=== PATIENT | female | born 1975 | race Caucasian/White ===

== ENCOUNTER 2020-11-09 10:14 | Outpatient (REF) | payer MEDICAID, SELFPAY ==
--- NOTE | 2020-11-09 | US_ITS ---
EXAMINATION: US ABDOMEN COMPLETE CLINICAL INFORMATION: Elevated levels of LDH. COMPARISON: None TECHNIQUE: Real-time imaging of the abdominal viscera. FINDINGS: PANCREAS: Normal. ABDOMINAL AORTA: The proximal, mid, and distal segments are normal in caliber. INFERIOR VENA CAVA: Visualized portions are normal. LIVER: The liver is normal size, shape and position. There is increased echogenicity seen. No focal lesion or intrahepatic biliary duct dilatation seen. GALLBLADDER: Surgically absent. COMMON BILE DUCT: Normal in caliber measuring 0.6 cm in diameter. RIGHT KIDNEY: Normal. No hydronephrosis. No renal calculi or focal parenchymal lesions. The kidney measures 11.7 cm in maximum dimension. LEFT KIDNEY: Normal. No hydronephrosis. No renal calculi or focal parenchymal lesions. The kidney measures 10.2 cm in maximum dimension. SPLEEN: Normal. The spleen measures 9.6 cm in maximum dimension. FREE FLUID: None. US/US abdomen complete IMPRESSION: Diffuse echogenic liver without focal lesion. Rest of the abdominal ultrasound is unremarkable.
--- NOTE | 2020-11-09 11:00 | CA_ITS ---
Acquisition Time: 2020-11-09 11:38:09 Total Exercise Time: 00:05:34 Test Indications: Chest Pain Medications: Protocol: KAROLINE Max HR: 157 BPM 90% of Pred: 174 BPM Max BP: 138/086 mmHG Max Work Load: 7.0 METS Exercise stresss ECHO while walking on treadmill. Karoline protocol used. total of 5 min 34 sec. METS 7.00TAPHR up to 90 %. Pt tolerated well, denies any anginal sx. EKG without any arrhythmias no ischemic changes during exercise or in recovery period. ECHO images taken at rest and immediately after peak HR reached. Defenity contrast used. Normotensive response to exercise. Test reviewed with Dr. Reyna. Referred By: Frankie Carcamo Overread By: Everton Aguiar
== END 2020-11-09 10:15 | disposition home or self-care (01) ==
LOC: HO.US 10:14
PROVIDERS: Visit Provider Internal Medicine
DX: R74.02 Elevation of levels of lactic acid dehydrogenase [LDH] (principal); R07.9 Chest pain, unspecified
CPT/HCPCS: 76700; 93350; Q9957

== ENCOUNTER 2020-11-09 16:00 | Outpatient (RCR) | payer MEDICAID, SELFPAY | END 2020-11-16 17:48 | disposition home or self-care (01) | LOC: HO.PTCHIC 16:00 | PROVIDERS: PCP Internal Medicine; Visit Provider Internal Medicine | DX: M54.5 Low back pain (principal) | CPT/HCPCS: 97110; 97140; 97162 ==

== ENCOUNTER 2021-07-18 13:06 | Outpatient (REF) | payer MEDICAID, SELFPAY ==
--- NOTE | ~2021-07-18 | US_ITS ---
EXAMINATION: US PELVIS CLINICAL INFORMATION: Left lower quadrant pain. COMPARISON: None. TECHNIQUE: Transabdominal and transvaginal imaging of pelvis is performed. FINDINGS: The uterus is anteverted measuring 11.0 cm in length, 5.5 cm in AP and 6.9 cm in transverse dimension. Endometrial thickness is 0.8 cm. There are 2 hypoechoic lesions: 1. Lesion in the left body of the uterus measuring 0.9 x 0 0.5 x 0.9 cm. 2. Lesion in the upper posterior body of the uterus measures 0.7 x 0.6 x 0.5 cm. Endometrial thickness is 0.8 cm. There are small nabothian cysts. There is trace fluid in the endometrium. Right ovary measures 2.5 x 1.2 x 1.0 cm and volume 1.6 mL. It appears unremarkable. Left ovary measures 2.4 x 1.7 x 1.0 cm and volume 2.1 mL. Right ovary measures 2.5 x 1.2 x 1.0 cm and volume 1.6 mL. It appears unremarkable. Left ovary measures 2.4 x 1.7 x 1.0 cm and volume 2.1 mL. There is no free fluid in the cul-de-sac. US/US transvaginal IMPRESSION: Two small uterine fibroids otherwise uterus is unremarkable. Mild thickening of endometrial lining. Small nabothian cysts. Minimal fluid within the endometrial canal. The ovaries are unremarkable.
--- NOTE | ~2021-07-18 | US_ITS ---
EXAMINATION: US PELVIS CLINICAL INFORMATION: Left lower quadrant pain. COMPARISON: None. TECHNIQUE: Transabdominal and transvaginal imaging of pelvis is performed. FINDINGS: The uterus is anteverted measuring 11.0 cm in length, 5.5 cm in AP and 6.9 cm in transverse dimension. Endometrial thickness is 0.8 cm. There are 2 hypoechoic lesions: 1. Lesion in the left body of the uterus measuring 0.9 x 0 0.5 x 0.9 cm. 2. Lesion in the upper posterior body of the uterus measures 0.7 x 0.6 x 0.5 cm. Endometrial thickness is 0.8 cm. There are small nabothian cysts. There is trace fluid in the endometrium. Right ovary measures 2.5 x 1.2 x 1.0 cm and volume 1.6 mL. It appears unremarkable. Left ovary measures 2.4 x 1.7 x 1.0 cm and volume 2.1 mL. Right ovary measures 2.5 x 1.2 x 1.0 cm and volume 1.6 mL. It appears unremarkable. Left ovary measures 2.4 x 1.7 x 1.0 cm and volume 2.1 mL. There is no free fluid in the cul-de-sac. US/US pelvic complete IMPRESSION: Two small uterine fibroids otherwise uterus is unremarkable. Mild thickening of endometrial lining. Small nabothian cysts. Minimal fluid within the endometrial canal. The ovaries are unremarkable.
== END 2021-07-18 13:07 | disposition home or self-care (01) ==
LOC: HO.US 13:06
PROVIDERS: PCP Internal Medicine; Visit Provider Registered Nurse
DX: R10.32 Left lower quadrant pain (principal)
CPT/HCPCS: 76830; 76856

== ENCOUNTER 2021-09-01 13:35 | Outpatient (REF) | payer MEDICAID, SELFPAY ==
[2021-09-01 15:24] LABS: MANUAL DIFF FLAG NO
[2021-09-01 15:46] LABS: Basophils Absolute Auto 0.1 X10*3/uL (0.0-0.2); Basophils Percent Auto 0.8 % (0-2); Eosinophils Absolute Auto 0.3 X10*3/uL (0.0-0.4); Eosinophils Percent Auto 4.1 % (0-4); Hematocrit 38.7 % (37-47); Hemoglobin 12.7 g/dl (12.0-16.0); Imm Gran Abs Auto 0.03 X10*3/uL (0.00-0.03); Imm Gran Pct Auto 0.4 % (0.0-0.4); Lymphocytes Absolute Auto 2.7 X10*3/uL (1.2-4.9); Lymphocytes Percent Auto 38.5 % (20-40); Mean Corpuscular HGB Conc 32.8 g/dl (31.0-35.0); Mean Corpuscular Hemoglobin 31.7 pg (27.0-33.0); Mean Corpuscular Volume 96.5 fL (80-98); Mean Platelet Volume 9.9 fL (9.4-12.3); Monocytes Absolute Auto 0.5 X10*3/uL (0.1-1.2); Monocytes Percent Auto 7.1 % (2-11); Neutrophils Absolute Auto 3.5 X10*3/uL (2.0-8.3); Neutrophils Percent Auto 49.1 % (45-73); Platelet Count 352 X10*3/uL (160-400); Red Blood Count 4.01 X10*6/uL (4.20-5.50); Red Cell Distribution Width 11.8 % (11.0-16.0); White Blood Count 7.1 X10*3/uL (4.8-10.8)
[2021-09-01 16:13] LABS: Alanine Aminotransferase 14 U/L (0-31); Albumin Level 4.3 g/dL (3.5-5.0); Alkaline Phosphatase 66 U/L (39-117); Anion Gap 10 (12-20); Aspartate Amino Transferase 17 U/L (5-31); Bilirubin Total 0.6 mg/dL (0.0-1.0); Blood Urea Nitrogen 12 mg/dL (9-16); Calcium 10.5 mg/dL (8.4-10.2); Carbon Dioxide 30 mmol/L (22-29); Chloride 103 mmol/L (96-108); Estimated Glomerular Filt Rate > 60; Glucose Random 96 mg/dL (60-115); Potassium 4.1 mmol/L (3.3-5.1); Sodium 139 mmol/L (135-145); Total Protein 7.7 g/dL (6.5-8.0)
[2021-09-01 16:30] LABS: TSH reflex Free T4 0.77 uIU/mL (0.32-4.0)
[2021-09-05 12:15] LABS: Transglutaminase Ab IgG <1.0 U/mL; Transglutaminase IgA 2.7 U/mL
== END 2021-09-01 13:36 | disposition home or self-care (01) ==
LOC: HO.LAB 13:35
PROVIDERS: PCP Internal Medicine; Referring Provider Family Medicine; Visit Provider Nurse Practitioner
DX: Z01.818 Encounter for other preprocedural examination (principal); R10.11 Right upper quadrant pain; R10.32 Left lower quadrant pain; K58.2 Mixed irritable bowel syndrome
CPT/HCPCS: 36415; 80053; 83516; 84443; 85025; 99202

== ENCOUNTER → 2021-10-06 10:50 | Outpatient (BNVA) | payer MEDICAID, SELFPAY | PROVIDERS: PCP Internal Medicine; Referring Provider Internal Medicine; Visit Provider Nurse Practitioner | DX: Z12.11 Encounter for screening for malignant neoplasm of colon (principal); K21.9 Gastro-esophageal reflux disease without esophagitis; K58.2 Mixed irritable bowel syndrome | CPT/HCPCS: 99212 ==

== ENCOUNTER 2021-12-18 09:57 | Outpatient (REF) | payer MEDICAID, SELFPAY ==
--- NOTE | ~2021-12-18 | XR_ITS ---
EXAMINATION: XR RIBS, LEFT, CHEST PA CLINICAL INFORMATION: Left rib pain. COMPARISON: None TECHNIQUE: 3 views of the left ribs were obtained with a PA view of the chest. A skin marker overlies the left inferior ribs. FINDINGS: Lungs are clear. No consolidation, pneumothorax, or pleural effusion. The cardiomediastinal silhouette and pulmonary vasculature are normal. Osseous structures are unremarkable. Ribs are intact. No fractures are identified. XR/XR ribs LT min 3V w CXR1V IMPRESSION: Unremarkable examination.
--- NOTE | ~2021-12-18 | XR_ITS ---
EXAMINATION: XR ANKLE, LEFT CLINICAL INFORMATION: Left lateral ankle pain. COMPARISON: None TECHNIQUE: AP, lateral, and mortise views of the left ankle. FINDINGS: The bones and soft tissues are normal. No fracture. Alignment is anatomic. Joint spaces are maintained. No joint effusion. XR/XR ankle LT 2V IMPRESSION: Unremarkable left ankle.
--- NOTE | ~2021-12-18 | XR_ITS ---
EXAMINATION: XR FOOT, LEFT CLINICAL INFORMATION: Left lateral foot pain. COMPARISON: None TECHNIQUE: AP, lateral, and oblique views of the left foot. FINDINGS: The bones and soft tissues are normal. No fracture. Alignment is anatomic. There is an incidental type I accessory navicular bone. Joint spaces are maintained. XR/XR foot LT 2V IMPRESSION: Unremarkable left foot.
== END 2021-12-18 09:58 | disposition home or self-care (01) ==
LOC: HO.XRAY 09:57
PROVIDERS: PCP Internal Medicine; Visit Provider Family Medicine
DX: M25.572 Pain in left ankle and joints of left foot (principal); R07.81 Pleurodynia
CPT/HCPCS: 71101; 73600; 73620

== ENCOUNTER 2022-04-19 09:16 | Outpatient (REF) | payer MEDICAID, SELFPAY ==
--- NOTE | ~2022-04-19 | US_ITS ---
EXAMINATION: US PELVIS CLINICAL INFORMATION: Pelvic pain. COMPARISON: Ultrasound 07/18/2021. TECHNIQUE: Ultrasound of the pelvis is performed using both transabdominal and transvaginal transducers along with Doppler. Transvaginal imaging is performed due to inadequate visualization transabdominally. FINDINGS: UTERUS: The uterus is anteverted and measures 12.2 cm in length, 5.3 cm in AP and 6.2 cm in transverse dimension. There is a solitary fibroid seen in the posterior body of uterus measuring 0.6 x 0.5 x 0.4 cm previously measured 0.7 x 0.6 x 0.5 cm. Previously visualized second fibroid is not seen at this time. The double wall endometrial thickness is 1.4 cm. The uterus is smooth in contour and has normal myometrial echogenicity. Small nabothian cyst is seen in cervix. There is a scar seen in lower uterine segment. ADNEXA: Both ovaries are visualized. There is normal color flow to the adnexa. There is no ovarian torsion. There is no pelvic ascites or fluid collection. Right ovary is not optimally visualized but likely measures 1.8 x 1.0 x 1.9 cm and volume 1.8 mL. No focal lesion seen. The ovary is uncertain and could represent a large broad ligament. By history patient has had oophorectomy unknown which side. Previously right ovary measured 2.5 x 1.2 x 1.0 cm and volume 1.6 mL. Left ovary measures 2.6 x 2.1 x 2.2 cm and volume 6.3 mL. Previously it measured 2.4 x 1.7 x 1.0 cm and volume 2.1 mL. There are small anechoic follicles and echogenic calcification seen. There is no free fluid in cul-de-sac. US/US pelvic and transvaginal IMPRESSION: Only one uterine fibroid seen measuring 0.6 cm. Second fibroid seen on the last exam is not visualized at this time. Small nabothian cysts seen in cervix. There are small follicles seen in the left ovary. The right ovary is unremarkable. There is no free fluid in the cul-de-sac.
== END 2022-04-19 09:17 | disposition home or self-care (01) ==
LOC: HO.US 09:16
PROVIDERS: Visit Provider Advanced Practice Midwife
DX: R10.2 Pelvic and perineal pain (principal); N92.1 Excessive and frequent menstruation with irregular cycle
CPT/HCPCS: 76830; 76856

== ENCOUNTER → 2022-05-28 12:40 | Outpatient (REF) | payer MEDICAID, SELFPAY ==
--- NOTE | 2022-05-28 12:47 | ECG_ITS ---
Hook-up date: 2022-05-28 12:41:00 Duration: 47:59:00 Test Indications: Palpitations Medications: [id number] QRS complexes 3 Ventricular ectopics which represent <1 % of total QRS comp. 2 Supraventricular ectopics which represent <1 % of total QRS comp. * Paced QRS complexs which represent % of total QRS comp. VENTRICULAR ECTOPY 3 Isolated 0 Bigeminal Cycles 0 Couplets 0 Runs 0 Beats in Runs * Beats LONGEST at * BPM at :: -- * Beats FASTEST at * BPM at :: -- SUPRAVENTRICULAR ECTOPY 2 Isolated 0 Couplets 0 Runs 0 Beats in Runs * Beats LONGEST at * BPM at :: -- * Beats FASTEST at * BPM at :: -- HEART RATES 37 MIN at 02:52:32 2022-05-29 64 AVG 143 MAX at 13:58:22 2022-05-28 LONGEST RR 1.6720 secs at 02:52:31 2022-05-29 S-T LEVELS Channel 1 - 128 mm at 12:41:00 2022-05-28 - 128 mm at 12:41:00 2022-05-28 Channel 2 - 128 mm at 12:41:00 2022-05-28 - 128 mm at 12:41:00 2022-05-28 Channel 3 - 128 mm at 03:20:01 -- - 128 mm at 03:20:01 Underlying rhythm is sinus; Average ventricular rate 64/min; range 37-143/min; No significant ectopy, tachy or ginny arrhythmias; 'fast beat' described in patient diary correlated with sinus bradycardia at 54/min. Referred By: Frankie Carcamo Overread By: FEROZ ARDON
== END ==
LOC: HO.CARD 12:40
PROVIDERS: PCP Internal Medicine; Visit Provider Internal Medicine
DX: R00.2 Palpitations (principal)
CPT/HCPCS: 93225; 93226

== ENCOUNTER 2022-07-16 12:01 | Outpatient (REF) | payer MEDICAID, SELFPAY ==
--- NOTE | ~2022-07-16 | MM_ITS ---
EXAMINATION: MM SCREENING DIGITAL BREAST TOMOSYNTHESIS, BILATERAL CLINICAL INFORMATION: Screening. Asymptomatic. The lifetime risk of breast cancer based on the Tyrer-Cuzick Model is 9%. COMPARISON: Outside mammography: 09/19/2020 ([facility]); outside imaging from [facility]: right ultrasound and right mammography 12/23/2018; bilateral mammography 12/03/2018. TECHNIQUE: Digital breast tomosynthesis is performed in both the craniocaudal and mediolateral oblique views along with computer-aided detection (CAD). Synthesized 2D images are generated from the tomosynthesis. FINDINGS: The breasts are almost entirely fatty (ACR BI-RADS breast composition Category a). There are no significant masses, abnormal calcifications, or other abnormalities. Background stromal markings are unremarkable. There is no developing density or architectural abnormality. The axilla and skin contours are unremarkable. No significant changes. MM/MM tomosynthesis screening BI IMPRESSION: No mammographic evidence of malignancy. ASSESSMENT: BI-RADS 1: Negative RECOMMENDATION: Routine annual mammography screening. This patient's information was entered into a reminder system with a target due date for their next mammogram.
== END 2022-07-16 12:02 | disposition home or self-care (01) ==
LOC: HO.MAMMO 12:01
PROVIDERS: Visit Provider Internal Medicine
DX: Z12.31 Encounter for screening mammogram for malignant neoplasm of breast (principal)
CPT/HCPCS: 77063; 77067

== ENCOUNTER 2022-07-26 11:58 | Emergency (ER) | payer MEDICAID, SELFPAY ==
[2022-07-26 12:08] VITALS: BP 122/66; PULSE 60; RESP 18; TEMP 36.4; O2SAT 97; BMI 27.9
--- NOTE | 2022-07-26 12:18 | ECG_ITS ---
Test Reason : chest pain Blood Pressure : / mmHG Vent. Rate : 055 BPM Atrial Rate : 055 BPM P-R Int : 150 ms QRS Dur : 088 ms QT Int : 408 ms P-R-T Axes : 047 -02 024 degrees QTc Int : 390 ms Sinus bradycardia Cannot rule out Anterior infarct , age undetermined Abnormal ECG No previous ECGs available Referred By: Generic ED Physician Electronically Signed By:CARTER CLIFFORD
[2022-07-26 12:44] LABS: MANUAL DIFF FLAG NO
[2022-07-26 12:47] LABS: Basophils Absolute Auto 0.1 X10*3/uL (0.0-0.2); Eosinophils Absolute Auto 0.2 X10*3/uL (0.0-0.4); Eosinophils Percent Auto 2.8 % (0-4); Hemoglobin 12.8 g/dl (12.0-16.0); Lymphocytes Absolute Auto 2.1 X10*3/uL (1.2-4.9); Lymphocytes Percent Auto 36.4 % (20-40); Mean Corpuscular HGB Conc 33.7 g/dl (31.0-35.0); Mean Corpuscular Hemoglobin 31.8 pg (27.0-33.0); Mean Corpuscular Volume 94.5 fL (80.0-98.0); Mean Platelet Volume 9.6 fL (9.4-12.3); Monocytes Absolute Auto 0.4 X10*3/uL (0.1-1.2); Monocytes Percent Auto 7.6 % (2-11); Neutrophils Percent Auto 52.2 % (45-73); Platelet Count 279 X10*3/uL (160-400); Red Blood Count 4.02 X10*6/uL (4.20-5.50); Red Cell Distribution Width 11.9 % (11.0-16.0); White Blood Count 5.8 X10*3/uL (4.8-10.8)
[2022-07-26 13:07] LABS: Alanine Aminotransferase 12 U/L (0-31); Albumin Level 4.1 g/dL (3.5-5.0); Alkaline Phosphatase 53 U/L (39-117); Anion Gap 13 (12-20); Aspartate Amino Transferase 17 U/L (5-31); Bilirubin Direct 0.3 mg/dL (0.0-0.5); Bilirubin Total 0.9 mg/dL (0.0-1.0); Blood Urea Nitrogen 23 mg/dL (9-16); Calcium 9.7 mg/dL (8.4-10.2); Carbon Dioxide 26 mmol/L (22-29); Chloride 105 mmol/L (96-108); Creatinine Clr Calc Pharmacy 76.1; Estimated Glomerular Filt Rate > 60; Glucose Random 94 mg/dL (60-115); Lipase 32 U/L (8-78); Potassium 3.7 mmol/L (3.3-5.1); Sodium 140 mmol/L (135-145); Total Protein 7.2 g/dL (6.5-8.0)
[2022-07-26 13:10] LABS: Troponin-I High Sensitivity < 3.5 ng/L (<3.5-17.0)
== END 2022-07-26 18:22 | disposition left against medical advice (07) ==
PROVIDERS: Emergency Provider Emergency Medicine; PCP Internal Medicine
DX: R07.89 Other chest pain (principal); Z79.899 Other long term (current) drug therapy
CPT/HCPCS: 36415; 80048; 80076; 83690; 84484; 85025; 93005; 99283

== ENCOUNTER → 2022-11-19 09:24 | Outpatient (BNVA) | payer MEDICAID, SELFPAY | PROVIDERS: PCP Internal Medicine; Referring Provider Internal Medicine; Visit Provider Internal Medicine | DX: R00.2 Palpitations (principal); I49.9 Cardiac arrhythmia, unspecified | CPT/HCPCS: 99202 ==

== ENCOUNTER 2022-11-22 13:54 | Outpatient (REF) | payer MEDICAID, SELFPAY ==
[2022-11-23 09:57] LABS: BV Int Neg Control Negative (Negative); BV Int Pos Control Positive (Positive)
[2022-11-23 10:13] LABS: CT PCR NOT DETECTED (Not Detect.); NG PCR NOT DETECTED (Not Detect.)
[2022-11-27 06:24] LABS: HPV mRNA E6/E7 rflx Not Detected (Not Detected)
== END 2022-11-22 13:55 | disposition home or self-care (01) ==
LOC: HO.LNP 13:54
PROVIDERS: PCP Internal Medicine; Visit Provider Advanced Practice Midwife
DX: N92.1 Excessive and frequent menstruation with irregular cycle (principal); Z32.02 Encounter for pregnancy test, result negative; Z11.3 Encounter for screening for infections with a predominantly sexual mode of transmission
CPT/HCPCS: 0353U; 81025; 87480; 87510; 87624; 87660; 88142; 99202

== ENCOUNTER 2022-11-22 15:13 | Outpatient (REF) | payer MEDICAID, SELFPAY | END 2022-11-22 15:14 | disposition home or self-care (01) | LOC: HO.LAB 15:13 | PROVIDERS: Visit Provider Advanced Practice Midwife | DX: Z13.89 Encounter for screening for other disorder (principal) ==

== ENCOUNTER → 2022-11-26 10:00 | Outpatient (REF) | payer MEDICAID, SELFPAY ==
--- NOTE | 2022-11-26 10:04 | HM_ITS ---
* Total monitoring time 30 days. Wear time 25 days. * Average ventricular rate 72/Min. Range 46 to 140/Min. * Rare PACs minimal burden. Rare PVCs with burden of 1.3%. * No sustained arrhythmias. * Patient's symptoms of palpitations correlate with sinus rhythm, supraventricular ectopy, MTDD
--- NOTE | 2022-11-26 10:04 | CA_ITS ---
Transthoracic Echocardiogram Patient (Last, First, Middle): Miguelito Ro, Gender: Female Date of : 1975 Age: 47 Procedure Date: 11/26/2022 Procedure Type: Transthoracic Echocardiogram Location: OP Height: 162.56 cm Weight: 78.47 kg BSA: 1.84 m2 Heart Rate: 65 bpm BP: 130 / 68 mmHg Transonic Engineer: SB Referring MD: Mike Reyna MD Symptoms: R00.2 - Palpitations Study Quality: Adequate ECG Rhythm: Sinus Conclusions: - The left ventricular systolic function is low normal. The visually estimated ejection fraction is between 50-55%. - In some views, interatrial septum appears aneurysmal. Cannot exclude interatrial shunt. - No obvious valvular pathology seen on this study. Findings Left Ventricle Normal left ventricular cavity size. There is normal left ventricular wall thickness. The left ventricular systolic function is low normal. The visually estimated ejection fraction is between 50-55%. There is no evidence of regional wall motion abnormalities. Diastolic function is normal for age. LV peak GLS -14.9%. Right Ventricle Normal right ventricular cavity size. There is low normal right ventricular systolic function. Atria Both atria are normal in size. In some views, interatrial septum appears aneurysmal. Cannot exclude interatrial shunt. Aortic Valve There is a normal trileaflet aortic valve. There is no aortic valve stenosis. There is no aortic valve regurgitation. Mitral Valve The mitral valve appears normal. There is trace mitral valve regurgitation. There is no mitral valve stenosis. Pulmonic Valve The pulmonic valve is likely normal. Tricuspid Valve Normal tricuspid valve structure. There is trace tricuspid valve regurgitation. There is no evidence of pulmonary hypertension. Great Vessels The sinuses of valsalva and asc aorta are normal in size. Venous The inferior vena cava is normal in size and collapses greater than 50% with inspiration. Pericardium/Pleural There is no evidence of pericardial effusion. Prior Study Comparison No prior study available for comparison. Recommendations, Care & Conclusions No obvious valvular pathology seen on this study. Measurements 2D Linear Measurements IVSd: 0.74 0.6-0.9/0.6-1.0 cm LVIDd: 5.19 3.9-5.3/4.2-5.9 cm LVIDd Index: 2.82 2.4-3.2/2.2-3.1 cm/m2 LVIDs: 3.83 2.0-3.6 cm LVPWd: 0.62 0.7-1.1 cm LA Diam: 3.60 2.7-3.8/3.0-4.0 cm LAIDs Index: 1.96 1.5-2.3 cm/m2 LV Mass: 147.26 67-162/88-224 g LV Mass Index: 80.03 43-95/49-115 g/m2 LVOT Diam: 2.10 3.0+(-)1.3 cm 2D Systolic Function EF 4C: 59.40 >55% EF 2C: 62.30 >55% EF BiP: 60.90 >55% Mitral Valve MV Pk E: 0.83 MV PK A: 0.57 MV Decel Time: 221.00 E/A: 1.50 E'Lateral: 9.79 E'Medial: 6.42 E/E' Med: 12.90 E/E' Lat: 8.40 PHT: 65.00 MVA PHT: 3.38 Decel [place]: 3.74 Aortic Valve AoV Pk Rosalio: 1.23 AoV Pk Grad: 6.00 ANANTH: 3.29 LVOT LVOT Pk Rosalio: 1.17 LVOT Mn Rosalio: 0.84 LVOT VTI: 0.26 LVOT Pk Grad: 5.00 LVOT Mn Grad: 3.00 LVOT Diam: 2.10 LVOT Area: 3.46 Diastolic Function MV Pk E: 0.83 MV Pk A: 0.57 E/A: 1.50 E'Medial: 6.42 E/E' Med: 12.90 E' Laterial: 9.79 E/E' Lat: 8.40 Right Ventricle TAPSE (mm): 17.50 TVS' Rosalio: 10.30 Tricuspid Valve TR Pk Rosalio: 1.78 TR Pk Grad: 13.00 RA Press: 3.00 RVSP: 16.00 Great Vessels Aorta Sinus of Valsalva: 3.00 2.0-3.5 cm Ao Asc: 3.30 2.1-3.4 cm Pulmonary Valve PV Pk Rosalio: 0.79 Peak PV Grad: 2.00 Updated in Other Vendor System with Status of Final Mike Reyna MD electronically signed on 11/27/2022 10:06:37 AM with status of Final
== END ==
LOC: HO.CARD 10:00
PROVIDERS: PCP Internal Medicine; Visit Provider Internal Medicine
DX: R00.2 Palpitations (principal)
CPT/HCPCS: 93270; 93306; 93356

== ENCOUNTER → 2022-12-25 10:24 | Outpatient (REF) | payer MEDICAID, SELFPAY ==
--- NOTE | 2022-12-25 10:29 | CA_ITS ---
Transthoracic Echocardiogram with bubble Patient (Last, First, Middle): Miguelito Ro, Gender: Female Date of : 1975 Age: 47 Procedure Date: 12/25/2022 Procedure Type: Transthoracic Echocardiogram with bubble Location: OP Height: 162.56 cm Weight: 78.47 kg BSA: 1.84 m2 Heart Rate: bpm Personal Banker: TO Referring MD: Mike Reyna MD Symptoms: Q21.12 - Patent foramen ovale, bubble study done Study Quality: Fair Conclusions: - There is no evidence of interatrial shunt by agitated saline. Findings Atria There is no evidence of interatrial shunt by agitated saline. (during rest and valsalva). Prior Study Comparison No significant change compared to prior study dated: 11/26/2022. Updated in Other Vendor System with Status of Final Mike Reyna MD electronically signed on 12/25/2022 12:31:58 PM with status of Final
== END ==
LOC: HO.CARD 10:24
PROVIDERS: Visit Provider Internal Medicine
DX: Q21.12 Patent foramen ovale (principal)
CPT/HCPCS: 93308

== ENCOUNTER 2023-01-03 15:44 | Outpatient (REF) | payer MEDICAID, SELFPAY ==
--- NOTE | ~2023-01-03 | US_ITS ---
EXAMINATION: US PELVIS CLINICAL INFORMATION: Abnormal uterine and vaginal bleeding. COMPARISON: Pelvic ultrasound 04/19/2022. TECHNIQUE: Ultrasound of the pelvis is performed using both transabdominal and transvaginal transducers along with Doppler. Transvaginal imaging is performed due to inadequate visualization transabdominally. FINDINGS: Uterus: The uterus is anteverted and measures 12.2 x 4.5 x 6.4 cm. The endometrium is heterogeneous and double wall endometrial thickening at 2.1 cm. There is a question of a polypoid mass in the endometrium. Previously, the endometrium was homogeneous. The uterus is smooth in contour and has normal myometrial echogenicity. A single small uterine fibroid is seen measuring 5 x 7 x 7 mm in size. Nabothian cysts are present in the cervix along with a 3 mm calcification. Adnexa: The right ovary has been removed and is not seen. The left ovary measures 2.0 x 2.1 x 2.3 cm for a volume of 5.1 mL and contains multiple cysts, the largest measuring 1.2 cm as well as multiple echogenic foci consistent with calcifications, the largest measuring 3 mm. A small amount of fluid is present in the cul-de-sac. US/US pelvic and transvaginal IMPRESSION: 1. Thickened heterogeneous endometrium with question of a mass. Hysteroscopy and biopsy is recommended for further evaluation. 2. Small uterine fibroid. 3. Right ovary not seen. 4. Small left ovarian cysts and calcifications.
== END 2023-01-03 15:45 | disposition home or self-care (01) ==
LOC: HO.US 15:44
PROVIDERS: Visit Provider Advanced Practice Midwife
DX: N93.9 Abnormal uterine and vaginal bleeding, unspecified (principal); R00.2 Palpitations; I51.9 Heart disease, unspecified; Z79.899 Other long term (current) drug therapy
CPT/HCPCS: 76830; 76856; 93005; 99212

== ENCOUNTER → 2023-01-09 15:19 | Outpatient (BNVA) | payer MEDICAID, SELFPAY | PROVIDERS: Visit Provider Advanced Practice Midwife | DX: Z71.2 Person consulting for explanation of examination or test findings (principal); N93.9 Abnormal uterine and vaginal bleeding, unspecified; N83.202 Unspecified ovarian cyst, left side | CPT/HCPCS: 99212 ==

== ENCOUNTER 2023-02-20 10:34 | Outpatient (REF) | payer MEDICAID, SELFPAY ==
--- NOTE | ~2023-02-20 | US_ITS ---
EXAMINATION: US PELVIS CLINICAL INFORMATION: Follow up left ovarian cysts and calcifications. COMPARISON: Previous pelvic ultrasounds, most recent January [address] of the abdomen and pelvis June 2022. TECHNIQUE: Ultrasound of the pelvis is performed using both transabdominal and transvaginal transducers along with Doppler. Transvaginal imaging is performed due to inadequate visualization transabdominally. FINDINGS: The uterus is anteverted and measures 11 x 6.5 x 6.7 cm in dimension. Uterine echotexture is heterogeneous. There is an 8 x 5 x 4 cm hypoechoic lesion or cyst in the posterior uterine body. The endometrium is thickened measuring 1.9 cm. The endometrium is heterogeneous. There is a 1 x 0.7 x 11 mm hyperechoic area in the endometrium questionable for a polyp. There are nabothian cysts in the cervix. Right ovary has been removed. Left ovary measures 2.4 x 1.8 x 2.2 cm. There are small echogenic foci questionable for calcifications, largest measures 2 x 3 mm. This is similar to previous exam. Previously identified left ovarian cysts are no longer seen. There is no fluid in the pelvis. US/US pelvic and transvaginal IMPRESSION: Heterogeneous-appearing uterus. Thickened heterogeneous endometrium. Central hyperechoic area questionable for a polyp. Left ovarian cysts no longer seen. Stable small echogenic foci seen in the left ovary questionable for calcifications, largest measuring 2 x 3 mm.
== END 2023-02-20 10:35 | disposition home or self-care (01) ==
LOC: HO.US 10:34
PROVIDERS: Visit Provider Advanced Practice Midwife
DX: N83.202 Unspecified ovarian cyst, left side (principal)
CPT/HCPCS: 76830; 76856

== ENCOUNTER → 2023-04-03 10:59 | Outpatient (BNVA) | payer MEDICAID, SELFPAY | PROVIDERS: PCP Student in an Organized Health Care Education/Training Program; Visit Provider Obstetrics & Gynecology | DX: N93.9 Abnormal uterine and vaginal bleeding, unspecified (principal); N84.0 Polyp of corpus uteri; D25.9 Leiomyoma of uterus, unspecified | CPT/HCPCS: 99212 ==

== ENCOUNTER → 2023-05-01 10:40 | Outpatient (REF) | payer MEDICAID, SELFPAY ==
--- NOTE | 2023-05-01 10:44 | HM_ITS ---
Cardiac event monitor Indication: Palpitations Technique: Patient was hooked up to cardiac event monitor on 05/01/2023 for total period of 38 days. Compliance rate was about 67%. Findings: Baseline rhythm is normal sinus rhythm with no significant pauses. The lowest heart rate was 43 beats per minute and the fastest heart rate of 159 beats per minute. There was 1 episode of short of SVEs most consistent with paroxysmal atrial tachycardia. There were rare isolated PACs and PVCs noted. No prolonged SVT or atrial fibrillation noted. Patient activated the symptom button 70 3 times with reported symptoms 20 6 times. Patient reported symptoms of chest pain 3 times a correlated with sinus rhythm was sinus tachycardia. Patient reported irregular heartbeat or flutter about 9 times that correlated with either isolated PVCs or PACs Patient reported 13 times symptoms of palpitations or skipped heartbeat that correlated with either normal sinus rhythm, short burst of paroxysmal atrial tachycardia or PVCs and PACs Patient reported 1 episode of fast heart rate that correlated with triplet of PACs Conclusion: 1. Baseline was normal sinus rhythm with no pauses 2. Rare isolated PACs and PVCs with 1 episode of paroxysmal atrial tachycardia 3. Patient reported symptoms correlated with isolated PACs and PVCs [facility]
== END ==
LOC: HO.CARD 10:40
PROVIDERS: PCP Internal Medicine; Visit Provider Internal Medicine
DX: R00.2 Palpitations (principal)
CPT/HCPCS: 93270

== ENCOUNTER → 2023-05-01 10:44 | Outpatient (BNV) | payer MEDICAID, SELFPAY | PROVIDERS: PCP Internal Medicine; Visit Provider Internal Medicine Cardiovascular Disease | DX: I47.1 Supraventricular tachycardia (principal) | CPT/HCPCS: 93272 ==

== ENCOUNTER 2023-05-14 12:53 | Outpatient (AMB) | payer MEDICAID, SELFPAY ==
--- NOTE | 2023-05-14 13:02 | MHC.OFFVIS ---
Intake Vital Signs 05/14/23 13:03 Height 5 ft 4 in Weight 160 lb 14.999 oz BMI 27.6 BP 130/70 Intake Visit Reasons: consult for hysterectomy Tightening Machine Operator Required: Yes Tightening Machine Operator Name: Giovanna [id number] Information Interpreted: non-clinical & clinical Bed Setter: Bed Setter Present Allergies azithromycin Allergy (Severe, Verified 05/14/23 13:03) Anaphylaxis guaifenesin [From Robitussin] Allergy (Severe, Verified 05/14/23 13:03) Anaphylaxis hydrocodone [From Vicodin] Allergy (Severe, Verified 05/14/23 13:03) Anaphylaxis naproxen [From Aleve] Allergy (Severe, Verified 05/14/23 13:03) Anaphylaxis oseltamivir [From Tamiflu] Allergy (Severe, Verified 05/14/23 13:03) Anaphylaxis Is last menstrual period known: Yes Last menstrual period: 09/01/20 Post menopausal: No Patient : No Do you need a note to return to daycare/school/sports/work: Yes (for surgery on saturday) HPI HPI Comments History of Present Illness Details Presenting to discuss hysteroscopy D&C possible polypectomy/myomectomy PFSH Medical History Asthma Congenital deafness Fatty liver GERD (gastroesophageal reflux disease) Heart palpitations History of calculus of gallbladder IBS (irritable bowel syndrome) Knee pain, right TRISTON (obstructive sleep apnea) Restless leg syndrome Seasonal allergies Umbilical hernia Surgical History History of esophagogastroduodenoscopy (EGD) History of right oophorectomy Hx of cholecystectomy Hx of colonoscopy Family History Father Diabetes Heart attack Kidney stones Lung cancer S/P triple vessel bypass Mother H/O: hysterectomy Appendicitis Hernia Maternal Grandmother Hernia Other Ovarian cyst Social History Household Members: Significant Other Housing: Apartment Are you a primary child care attendant school to a significant other at home: No Do you presently have visiting nurse or other home services: No Alcohol intake: never Patient Tobacco Use Status: Never used Tobacco Female Reproductive History Menstrual Age of Menarche: 11 Date of last menstrual period: 09/01/20 Total pregnancies: 2 Full term: 2 Review of Systems Card Reports as per HPI and Reports no additional complaints Resp Reports as per HPI and Reports no additional complaints GI Reports as per HPI and Reports no additional complaints Reports as per HPI Physical Exam Vital Signs: Last Vital Signs BP 130/70 05/14/23 13:03 BMI result Body Mass Index 27.6 Const General: cooperative, healthy appearing and comfortable Chest Chest palpation & inspection: normal inspection of the chest and normal palpation of entire chest wall Breast/axilla inspection: normal inspection of the breasts and normal inspection of the axillae Breast/axilla palpation: normal palpation of the breasts, normal palpation of the axillae and no axillary lymphadenopathy Resp Effort & Inspection: normal respiratory effort Auscultation: clear to auscultation bilaterally Percussion: percussion normal Cardio Palpation: normal PMI Rate: regular rate Rhythm: regular rhythm Heart sounds: no murmurs and no rubs Peripheral pulses: Peripheral pulses 2+ throughout GI Inspection: Yes normal to inspection Palpation (GI): Soft to palpation, nontender, no guarding, not rigid and No hepatosplenomegaly present Percussion: Yes normal to percussion Auscultation: normal bowel sounds Rectal Exam - Female: deferred Assessment & Plan Assessment & Plan (1) Abnormal uterine bleeding: Comment: Endometrial polyp by ultrasound Code(s): N93.9 - Abnormal uterine and vaginal bleeding, unspecified Plan: Discussed with the patient the procedure , all benefits and risks including but not limited to inability to complete the procedure , bleeding, infection, possible need for blood transfusion with all its risk ( HIV,syphilis, Hepatitis, anaphylaxis shock, others..), injury to bladder, rectum, possible need for laparoscopy/laparotomy or hysterectomy. The patient verbalized understanding and signed the consent. Instructions given the patient to schedule a 2 week postoperative appointment. Communication was through a orthopedic designer Giovanna garcia, powertrain calibration engineer [phone] [id number] Coding Level of Care Code Est Pt Level 3 (55443) Diagnoses Abnormal uterine bleeding N93.9
[2023-05-14 13:03] VITALS: BP 130/70; BMI 27.6
== END 2023-05-14 14:20 | disposition home or self-care (01) ==
LOC: HO.HWS 12:53
PROVIDERS: PCP Internal Medicine; Visit Provider Obstetrics & Gynecology
DX: N93.9 Abnormal uterine and vaginal bleeding, unspecified (principal)
CPT/HCPCS: 99213

== ENCOUNTER → 2023-05-14 12:53 | Outpatient (BNVA) | payer MEDICAID, SELFPAY | PROVIDERS: PCP Internal Medicine; Visit Provider Obstetrics & Gynecology | DX: N93.9 Abnormal uterine and vaginal bleeding, unspecified (principal); N84.0 Polyp of corpus uteri | CPT/HCPCS: 99212 ==

== ENCOUNTER 2023-05-17 10:12 | Day surgery (SDC) | payer MEDICAID, SELFPAY ==
[2023-04-16 16:27] VITALS: BMI 27.8
[2023-04-17 10:03] VITALS: BMI 27.8
--- NOTE | 2023-04-17 13:39 | HO.ANESPROP2 ---
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 *Multiple med allergies* [facility] Active Problems Active Problems: All Active Problems (Updated 04/17/23 @ 10:07 by Janette Zuleta, RN) LLQ pain (Acute) RUQ pain (Acute) Irritable bowel syndrome with both constipation and diarrhea (Acute) Colon cancer screening (Acute) GERD (gastroesophageal reflux disease) (Acute) Heart palpitations (Acute) Abnormal uterine bleeding (Acute) Uterine myoma (Acute) Past Medical History Medical History (Updated 04/17/23 @ 10:07 by Janette Zuleta, RN) Asthma Congenital deafness Fatty liver GERD (gastroesophageal reflux disease) Heart palpitations History of calculus of gallbladder IBS (irritable bowel syndrome) Knee pain, right TRISTON (obstructive sleep apnea) Restless leg syndrome Seasonal allergies Umbilical hernia Family History Family History Father Diabetes Heart attack Kidney stones Lung cancer S/P triple vessel bypass Mother H/O: hysterectomy Appendicitis Hernia Maternal Grandmother Hernia Other Ovarian cyst Surgical History Surgical History (Updated 04/17/23 @ 10:02 by Janette Zuleta, BELKIS) History of esophagogastroduodenoscopy (EGD) History of right oophorectomy Hx of cholecystectomy Hx of colonoscopy Social History Social History (Updated 04/17/23 @ 10:00 by Janette Zuleta RN) Household Members: Significant Other Housing: Apartment Are you a primary ostomy care nurse to a significant other at home: No Do you presently have visiting nurse or other home services: No Alcohol intake: never Patient Tobacco Use Status: Never used Tobacco Meds Allergies Allergy/AdvReac Type Severity Reaction Status Date / Time azithromycin Allergy Severe Anaphylaxis Verified 04/17/23 10:00 guaifenesin [From Robitussin] Allergy Severe Anaphylaxis Verified 04/17/23 10:00 hydrocodone [From Vicodin] Allergy Severe Anaphylaxis Verified 04/17/23 10:00 naproxen [From Aleve] Allergy Severe Anaphylaxis Verified 04/17/23 10:00 oseltamivir [From Tamiflu] Allergy Severe Anaphylaxis Verified 04/17/23 10:00 Home Medications Medication Instructions Recorded Confirmed Last Taken Type ferrous sulfate 325 mg (65 mg 325 mg PO DAILY 09/01/21 04/17/23 Unknown History iron) tablet valacyclovir 500 mg tablet 500 mg PO DAILY 09/01/21 04/17/23 Unknown History aspirin 325 mg tablet,delayed 325 mg PO DAILY 11/19/22 04/17/23 Unknown History release azelastine 137 mcg (0.1 %) nasal 1 spray intranasal BID PRN Allergy 11/19/22 04/17/23 Unknown History spray aerosol Symptoms ibuprofen 800 mg tablet 800 mg PO BID 11/19/22 04/17/23 Unknown History levocetirizine 5 mg tablet (Xyzal) 5 mg PO DAILY 11/22/22 04/17/23 Unknown History albuterol sulfate 90 mcg/actuation 1 inh inhalation QID PRN Shortness 04/03/23 04/17/23 Unknown History aerosol inhaler (Ventolin HFA) Of Breath Or Wheezing biotin 5 mg capsule 5 mg PO DAILY 04/03/23 04/17/23 Unknown History Exam Exam Date and Time: April 17, 2023 1339 Height,Weight and Vital Signs: Height 5 ft 4 in Weight 73.482 kg Pertinent Lab Results Pertinent Lab Results: Laboratory Tests 07/26/22 07/26/22 12:39 12:39 WBC 5.8 Hgb 12.8 Hct 38.0 Plt Count 279 Sodium 140 Potassium 3.7 Chloride 105 Carbon Dioxide 26 BUN 23 H Creatinine 0.89 Narrative Narrative: Per 01/2023 Cardiology visit: Recent EKG shows sinus bradycardia at 57/Min; no significant ST-T changes and otherwise unremarkable. In the Holter monitor, underlying rhythm is sinus without any clear arrhythmias.? Palpitations mention in diary correlate with sinus bradycardia. Echocardiogram with low-normal LVEF, 50-55%.? Interatrial septum appeared aneurysmal.? With agitated saline, no evidence of shunting.? Reduced peak global longitudinal strain about -15%. Exercise stress echocardiogram unremarkable at 7 METS exercise capacity. Assessment and Plan Assessment Anesthesia Assessment: Chart Reviewed
[2023-05-17 10:44] VITALS: BP 143/95; PULSE 76; RESP 18; TEMP 37.6; O2SAT 98
[2023-05-17 10:44] LABS: UPreg QC Valid YES; Urine Pregnancy NEGATIVE (NEGATIVE)
[2023-05-17 10:53] VITALS: BMI 32.6
--- NOTE | 2023-05-17 11:46 | MHC.SHP ---
Pre-Procedural Eval Section A Date of Service: 05/17/23 The patient is an INPATIENT: No Changes since office visit: No Cold of Flu in the past 2 weeks, No New Medical Problems, No Changes in Medication and No Patient answered all questions The History & Physical has been completed within 30 days and I have reviewed it.: Yes Section B Chief Complaint: Abnormal uterine and vaginal bleeding, unspecified Allergies: Allergies Allergy/AdvReac Type Severity Reaction Status Date / Time azithromycin Allergy Severe Anaphylaxis Verified 05/14/23 13:03 guaifenesin [From Robitussin] Allergy Severe Anaphylaxis Verified 05/14/23 13:03 hydrocodone [From Vicodin] Allergy Severe Anaphylaxis Verified 05/14/23 13:03 naproxen [From Aleve] Allergy Severe Anaphylaxis Verified 05/14/23 13:03 oseltamivir [From Tamiflu] Allergy Severe Anaphylaxis Verified 05/14/23 13:03 Plan Diagnosis/Plan: Unchanged I have reviewed the history and physical and performed a pertinent physical examination on my patient. No changes have occurred unless specified. Time Spent With Patient Time: Total time managing care of this patient today ____ minutes.
--- NOTE | 2023-05-17 12:36 | PM.OP ---
Brief Operative Note Date of Service: 05/17/23 Pre-op diagnosis: Abnormal uterine bleeding endometrial polyp by ultrasound Post-op diagnosis: same (Endometrial polyp) Procedure: Hysteroscopy D&C, Polypectomy Surgeon: Osman Welsh MD Anesthesia: GLMA Was an Healthcare Administrator used for this Procedure?: No Estimated blood loss (mL): 0 Pathology: other (Endometrial Scrapping. Polyp) Condition: stable Disposition: PACU
--- NOTE | 2023-05-17 12:37 | P.OP_ITS ---
Operative Note Operative Note Date of Service: 05/17/23 Narrative: Preop Diagnosis: Abnormal uterine bleeding and Endometrial polyp by US Operation: Diagnostic Hysteroscopy, Dilataion & Curettage and polypectomy Post Op Diagnosis: Endometrial Polyp QBL: Minimal Anesthesia: GLMA Surgeon: Osman Welsh MD Calendering Supervisor: None Complication: None Pathology: Endometrial Scrapings, Endometrial polyp Procedure: The patient was put in the dorsal lithotomy position, scrubbed, and draped in the usual manner. A sterile speculum was inserted in the patient's vagina. The anterior lip of the cervix was grasped with a single tooth tenaculum. The cervix was dilated up to 5 mm, then the scope was inserted in the patient's uterus. Inspection revealed endometrial polyp. The Myosure Reach device was used; it was introduced through the operative channel and polypectomy done with no complications. The scope was then taken out from the uterine cavity, sharp curettings was carried on with minimal to moderate amount of tissues retrieved. At the end of the procedure, all instruments were taken out of the patient uterine and vaginal cavity. The single tooth tenaculum was removed and homeostasis was assured using pressure,. The patient tolerated the procedure well and was transferred to the PACU in a stable condition.
[2023-05-17 12:46] VITALS: BP 120/66; PULSE 73; RESP 16; TEMP 36.6; O2SAT 98
[2023-05-17 12:51] VITALS: BP 130/93; PULSE 70; RESP 16; O2SAT 96
[2023-05-17 12:56] VITALS: BP 136/85; PULSE 68; RESP 16; O2SAT 97
[2023-05-17 13:00] VITALS: BP 133/76; PULSE 53; RESP 16; O2SAT 97
[2023-05-17 13:15] VITALS: BP 121/74; PULSE 66; RESP 18; TEMP 36.6; O2SAT 98
== END 2023-05-17 14:00 | disposition home or self-care (01) ==
PROVIDERS: Nurse Practitioner; PCP Internal Medicine; Visit Provider Obstetrics & Gynecology
PROC: 0UDB8ZZ Extraction of Endometrium, Via Natural or Artificial Opening Endoscopic (ICD-10-PCS; CPT 58558; principal; 2023-05-17 12:00)
DX: N93.9 Abnormal uterine and vaginal bleeding, unspecified (principal); N84.0 Polyp of corpus uteri; J45.909 Unspecified asthma, uncomplicated; K76.0 Fatty (change of) liver, not elsewhere classified; G47.33 Obstructive sleep apnea (adult) (pediatric); H90.5 Unspecified sensorineural hearing loss; Z90.49 Acquired absence of other specified parts of digestive tract; Z88.1 Allergy status to other antibiotic agents; Z88.8 Allergy status to other drugs, medicaments and biological substances
CPT/HCPCS: 58558; 81025; 88305; J1100; J1885; J2250; J2405

== ENCOUNTER → 2023-05-17 10:12 | Outpatient (BNV) | payer MEDICAID, SELFPAY | PROVIDERS: PCP Internal Medicine; Visit Provider Obstetrics & Gynecology | DX: N93.9 Abnormal uterine and vaginal bleeding, unspecified (principal); N84.0 Polyp of corpus uteri | CPT/HCPCS: 58558 ==

== ENCOUNTER 2023-06-05 11:04 | Outpatient (AMB) | payer MEDICAID, SELFPAY ==
--- OUTSIDE RECORDS SUMMARY | 2023-06-05 11:05 | XMS_ITS | Continuity of Care Document ---
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 Date(s): 05/27/23 - 05/27/[address] [address]- Encounter Diagnosis Abdominal pain(Final) - 05/27/23 Discharge Disposition: A-D/C Home Attending Physician: Katia Hernandez DO Admitting Physician: Katia Hernandez DO Referring Physician: Not on Staff, Referring MD Allergies, Adverse Reactions, Alerts Substance Reaction Severity Status Zithromax Active Aleve Stomach pain Active Vicodin Active Tamiflu Active guaiFENesin-HYDROcodone Acti ve Immunizations Given and Recorded Vaccine Date Status Refusal Reason SARS-CoV-2 (COVID-19) mRNA BNT-162b2 vac 11/01/21 Recorded SARS-CoV-2 (COVID-19) mRNA BNT-162b2 vac 03/24/21 Recorded SARS-CoV-2 (COVID-19) mRNA BNT-162b2 vac 03/03/21 Recorded tetanus/diphtheria/pertussis, acel(Tdap) 09/05/16 Given influenza virus vaccine, inactivated 08/28/16 Give n influenza virus vaccine, inactivated 08/12/14 Allan rded pneumococcal 13-valent vaccine 10/19/15 Given hepatitis B adult vaccine 02/21/15 Recorded hepatitis B adult vaccine 08/04/14 Recorded Hepatitis B Vaccine (old term) 09/14/14 Recorded Medications aspirin 81 mg oral capsule 1 capsule = 81 mg, By Mouth, Every 4 hours, 0 Refills, Maintenance, 07/09/22 8:51:00 EDT, Partial fill upon patient request if the prescription is for a schedule II opioid drug. Start Date: 07/09/22 Status: Ordered MorPHINE Inj 4 mg, Injection, IV Push Slowly, Once, STAT, 05/27/23 15:36:00 EDT, Stop date 05/27/23 15:36:00 EDT Start Date: 05/27/23 Stop Date: 05/27/23 Status: Completed omeprazole 20 mg oral enteric coated capsule 1 capsule = 20 mg, By Mouth, Daily, # 30 capsule, 0 Refills, Maintenance, 05/27/23 18:15:00 EDT, [facility]pharmacy #[id number], Partial fill upon patient request if the prescription is for a schedule II opioid drug., 162, cm, 05/27/23 16:14:00 EDT, H... Start Date: 05/27/23 Stop Date: 06/26/23 Status: Ordered Problem List Condition Confirmation Course Effective Dates Status Health St atus Informant Bronchitis, acute Confirmed Active Allergic rhinitis Confirmed Active Chest pain Confirmed Active Complete deafness Confirmed Active Constipation Confirmed Active Depression Confirmed Active Folliculitis Confirmed Active Furuncle of left axilla Confirmed Active History of migraine headaches Confirmed Active Bilateral knee pain Confirmed Active Obesity Confirmed Active Left elbow pain Confirmed Active Pain, joint, upper arm, right Confirmed Active Encounter for preventive health examination Confirmed Active Right shoulder pain Confirmed Active Left shoulder pain Confirmed Active Results Radiology Reports * Exam Date Time Procedure Performing Provider Status 05/27/23 3:[address] Abd/Pelvis W/ IV Contrast Only Cathleen Chowdary; Auth (Verified) Notes: (CT Abd/Pelvis W/ IV Contrast Only) Reason For Exam: Pain RESULT: CT Abd/Pelvis W/ IV Contrast Only CT Abd/Pelvis W/ IV Contrast Only Hx of Present Illness: ABD pain started this AM. Epigastric to R flank. Hard to breath and sweating. Had gallbladder removed. Diarrhea.; Reason: Pain; Clinical Question(s): Diverticulitis TECHNIQUE: Spiral CT through the abdomen and pelvis with IV contrast formatted in 3 planes. 100 cc of Omnipaque 300 was administered intravenously. This study was performed without oral contrast. Weight-based protocol using automatic tube modulation was used to optimize exposure parameters. COMPARISON: 06/05/2021 FINDINGS: Bioinformatics Associate View Findings, Lines and Tubes: None. The study is degraded by mild motion artifact throughout. Visualized Chest: Lung bases are clear. No pleural effusion. The heart is normal in size. No pericardial effusion. Diaphragm: Normal. Liver: Normal. Gallbladder: Absent consistent with prior cholecystectomy. Bile ducts: No biliary ductal dilation. Spleen: Normal. Pancreas: Normal. Adrenal glands: Normal. Kidneys and ureters: No hydronephrosis, stones, or suspicious masses. Bladder: Underdistended but otherwise unremarkable. Reproductive organs: Unremarkable. Stomach, small bowel, and large bowel: The stomach is grossly unremarkable in appearance. The smallbowel loops are normal in caliber, without evidence of obstruction. No gross colonic abnormality identified. Appendix: No findings suggestive of appendicitis. Peritoneum and retroperitoneum: No ascites or pneumoperitoneum. No omental or mesenteric lesions. Lymph nodes: No enlarged lymph nodes. Blood vessels: Normal. No aneurysm. No evidence of venous thrombosis. Abdominal and pelvic wall: There is a small fat-containing umbilical hernia. Bones: No acute abnormality. IMPRESSION: No acute abdominal or pelvic pathology identified on this slightly motion degraded examination. Incidental findings as described above. WSN: [id number] Ordering Physician: Katia Hernandez Dictated By: Carlene Perdomo MD Dictated Date/Time: 05/27/23 4:12 pm Reviewed By: Carlene Perdomo MD Signed By: Carlene Perdomo MD Signed Date/Time: 05/27/23 4:12 pm Transcribed By: TELMA Transcribed Date/Time: 05/27/23 4:02 pm Vital Signs Most recent to oldest [Reference Range]: 1 2 3 Height 162 cm (05/27/23 6:23 PM) 162 cm (05/27/23 4:14 PM) 162 cm (05/27/23 1:31 PM) Weight 91.1 kg (05/27/23 1:31 PM) Oxygen Saturation [94-100 %] 96 % (05/27/23 6:23 PM) 96 % (05/27/23 4:14 PM) 96 % (05/27/23 1:31 PM) Pulse Rate [55-90 bpm] 86 bpm (05/27/23 6:23 PM) 88 bpm (05/27/23 4:14 PM) 130 bpm *H* (05/27/23 1:31 PM) Blood Pressure [90-138/55-84 mm Hg] 154/102mm Hg *H* (05/27/23 6:23 PM) 149/88mm Hg *H* (05/27/23 4:14 PM) 154/131mm Hg *H* (05/27/23 1:31 PM) Respiratory Rate [16-30 br/min] 18 br/min (05/27/23 6:23 PM) 18 br/min (05/27/23 4:27 PM) 18 br/min (05/27/23 4:14 PM) Temperature [96.8-100.4 DegF] 98.2 DegF (05/27/23 4:14 PM) 97.7 DegF (05/27/23 1:31 PM) Liters per Minute 0 L/min (05/27/23 6:23 PM) 0 L/min (05/27/23 4:14 PM) Mode of Delivery (Oxygen) Room air (05/27/23 6:23 PM) Room air (05/27/23 4:14 PM) Room air (05/27/23 1:31 PM) Blood pressure sites Arm, left (05/27/23 6:23 PM) Arm, left (05/27/23 4:14 PM) Arm, left (05/27/23 1:31 PM) Temperature Route Oral (05/27/23 4:14 PM) Oral (05/27/23 1:31 PM) Dry Weight 91.1 kg (05/27/23 1:31 PM) Weight Obtained Via Standing scale (05/27/23 1:31 PM) Dry Weight Obtained Via Standing scale (05/27/23 1:31 PM) Social History Social History Type Response Smoking Status Never smoker entered on: 07/20/15 Sex EKG study * Event Display: ECG 12-Lead Authored Date: Please click on pdf link to open report * Event Display: ECG 12-Lead Authored Date: Ventricular Rate: 98 BPM Atrial Rate: 98 BPM P-R Interval: 128 ms QRS Duration: 82 ms Q-T Interval: 338 ms QTC Calculation(Bazett): 431 ms P [place]: 77 degrees R [place]: 29 degrees T [place]: 51 degrees Poor data quality, interpretation may be adversely affected Normal sinus rhythm Poor R wave progression Otherwise normal ECG When compared with ECG of 20-NOV-2022 14:56, Current undetermined rhythm precludes rhythm comparison, needs review Confirmed by FILIPPO STERLING MD ([id number]) on 05/27/2023 4:49:19 PM [place]: FILIPPO STERLING MD Note * Katia Hernandez DO: PERFORM, SIGN, VERIFY Event Display: Patient Education Handout Authored Date: [id number] * Katia Hernandez DO: PERFORM Event Display: Patient Education Leaflets Authored Date: [id number] GERD (Adult) ?? [id number] GERD (Adult) The esophagus is a tube that carries food from the mouth to the stomach. A valve (lower esophageal sphincter) prevents stomach acid from flowing upward. Sometimes this valve doesn't work correctly. Then stomach contents may flow (reflux) into the esophagus. When it happens again and again, it's called??GERD (gastroesophageal reflux disease).??GERD can irritate the esophagus. It can cause pain. Itcan also cause problems with swallowing or breathing. In severe cases, GERD can cause pneumonia that keeps coming back. This is from breathing in particles (aspiration). Symptoms of reflux include burning, pressure, or sharp pain in the upper belly (abdomen). Symptoms may also be in the mid- to lower chest. The pain can spread to the neck, back, or shoulder. You may have: ??? Belching ??? Acid taste in the back of the throat ??? Chronic cough ??? Sore throat ??? Hoarseness GERD symptoms often occur during the day after a big meal. They can also occur at night when lying down.?? Home care Lifestyle changes can help ease symptoms. Your healthcare provider may also prescribe medicines.??Symptoms often get better with treatment. But if treatment is stopped, the symptoms often return after a few months. Most people with GERD will need to continue treatment. Or they may need treatment onand off. Lifestyle changes ??? Limit or don't eat fatty, fried, or spicy foods. Also limit coffee, chocolate, mint, and foods with high acid content. These include tomatoes and citrus fruit and juices (orange, grapefruit, and lemon). ??? Don???t eat large meals, especially at night. Frequent, smaller meals are best. Don't lie down right after eating. And don???t eat anything 3 hours before going to bed. ??? Don't drink alcohol or smoke. As much as possible, stay away from secondhand smoke. ??? If you are overweight, losing weight will reduce symptoms.? Don't wear tight clothing around your stomach area. ??? If your symptoms occur during sleep, use a foam wedge to raise your upper body not just your head. Or place 4-inch blocks under the head of your bed. Or use 2 bed risers under your bed frame. ??? Talk with your provider if you have trouble making the suggested lifestyle changes. They may be able to give you resources to help. Medicines Medicines can help ease the symptoms of GERD. They also help prevent damage to the esophagus. Discuss a medicine plan with your healthcare provider. This may include one or more of these medicines: ??? Antacids. These help neutralize the normal acids in your stomach. ??? Acid blockers (histamine or H2 blockers). These decrease how much acid your stomach makes. ??? Acid inhibitors (proton pump inhibitors PPIs). These also decrease how much acid your body makes, but in a different way from the blockers. They may work better. But they can take a little longer to do so. Take an antacid 30 to 60 minutes after eating and at bedtime, but not at the same time as an acid rosey. Try not to take medicines such as ibuprofen and aspirin. If you take aspirin for your heart or other health reasons, talk with your healthcare provider about stopping it. ?? Follow-up care Follow up with your healthcare provider as advised. ?? When to seek medical advice Call your healthcare provider if any of the following occur: ??? Stomach pain gets worse or moves to the lower right belly (appendix area) ??? Chest pain appears or gets worse, or spreads to the back, neck, shoulder, or arm ??? An egsk-zxy-xssiogb trial of medicine doesn't relieve your symptoms ???Weight loss that can't be explained ??? Trouble or pain swallowing ??? Frequent vomiting (can???t keep down liquids) ??? Blood in the stool or vomit (red or black in color) ??? Feeling weak or dizzy ??? Fever of 100.4??F (38??C) or higher, or as directed by your healthcare provider ??? Symptoms getworse or you have new symptoms ?? Last Reviewed Date: 2021 ?? [id number] [employer]. All rights reserved. This information is not intended as a substitute for professional medical care. Always follow your healthcare professional's instructions. ?? * Katia Hernandez DO: PERFORM Event Display: Patient Education Leaflets Authored Date: [id number] Unknown Causes of Abdominal Pain (Adult) ?? [id number] Unknown Causes of Abdominal Pain (Adult) The exact cause of your belly (abdominal) pain is not clear. Your exam and tests don't suggest a dangerous cause at this time. This does not mean that this is something to worry about. Everyone likesto know the exact cause of the problem. But sometimes with belly pain, there is no clear-cut cause,and this could be a good thing. Your symptoms can be treated, and you should feel better.?? Your condition does not seem serious now. But sometimes the signs of a serious problem may take more time to appear. For this reason,??it's important for you to watch for any new symptoms, problems,??or worsening of your condition. Over the next few days, the abdominal pain may come and go. Or it may be constant. Other common symptoms can include nausea and vomiting. Sometimes it can be difficult to tell if you feel nauseous. You may just feel bad and not connect that feeling to nausea. Constipation, diarrhea, and a fever maygo along with the pain. The pain may continue even if treated correctly over the following days. Depending on how things go, sometimes the cause can become clear and you may need more??or different treatment. You may also need other evaluations, medicines, or tests. Home care Your healthcare provider may prescribe medicine for pain, symptoms, or an infection. ??Follow the healthcare provider's instructions for taking these medicines. General care ??? Rest as much as you can until your next exam. No strenuous activities. ??? Try to not do anything that may have caused your symptoms. This might be not taking any medicines unless otherwise directed by your healthcare provider. It might be not eating certain foods or doing certain activities. ??? Find positions that ease discomfort. A small pillow placed on your belly may help relieve pain. ??? Something warm on your belly such as a heating pad may help, but be careful not to burn yourself. Diet ??? Don???t??force yourself to eat, especially if having cramps, vomiting, or diarrhea. ??? Water is important so you don't get dehydrated. Soup may also be good. Sports drinks may also help, especially if they are not too acidic. Don't drink sugary drinks as this can make things worse. Take liquids in small amounts. Don???t??guzzle them. ??? Caffeine sometimes makes the pain and cramping worse. ??? Don???t take??dairy products if you have vomiting or diarrhea. ??? Don't eat large amounts at a time. Eat several small meals during the day instead of 2 or 3 larger meals. Wait a few minutesbetween bites. ??? Eat a diet low in fiber (called a low-residue diet). Foods allowed include refined breads, white rice, fruit and vegetable juices without pulp, tender meats. These foods will pass more easily through the intestine. ??? Don???t have??whole-grain foods, whole fruits and vegetables,meats, seeds and nuts, fried or fatty foods, dairy, alcohol and spicy foods until your symptoms go away. ?? Follow-up care Follow up with your healthcare provider, or as advised, if your pain does not begin to improve in the next 24 hours. ?? Call 911 Call?? 911 if any of these occur: ??? Trouble breathing ??? Confusion ??? Fainting or loss of consciousness ??? Rapid heart rate ??? Seizure ?? When to seek medical advice Call your healthcare provider right away if any of these occur: ??? Pain gets worse or moves to theright lower abdomen ??? New or worsening vomiting or diarrhea ??? Swelling of the abdomen ??? Unable to pass stool for more than??3 days ??? Fever of 100.4??F (38??C) or higher, or as directed by your healthcare provider ??? Blood in vomit or bowel movements (dark red or black color) ??? Yellow color of eyes and skin (jaundice) ??? Weakness, dizziness ??? Chest, arm, back, neck, or jaw pain ??? Can't keep down medicines, liquids, or water because of too much vomiting ??? If you have a vagina: unexpected vaginal bleeding or missed period ?? Last Reviewed Date: 2021 ?? [phone] [employer]. All rights reserved. This information is not intended as a substitute for professional medical care. Always follow your healthcare professional's instructions. ?? Patient Care team information Care Team Personnel Name: Tristan Glover Position: [facility] Outreach Member Role: Lifetime Consulting Physician Name: Ranjeet Ly MD, Frankie Position: [facility] Outreach Member Role: PCP Address: Address: [address] [place] [address]- Name: Bernice Cantrell [place] Position: [facility] RN Member Role: Primary Care Nurse Name: Bhakti Grace RN Position: [facility] ED RN W/OE and Tasks Member Role: Patient Care Provider Name: Katia Hernandez DO Position: [facility] ED Medicine MD Member Role: Admitting Physician Address: Address: [address] [place] [address] [place] [address]- Name: Antionette Holden Position: [facility] ED [facility] Member Role: Clamshell Operator Care Team Related Persons Name: CARTER DODD Address: home [address] [place] [address] Name: WINSTON SWIFT Address: [place] [address] Name: RACQUEL TRACY Address: home [address] [address] Name: RACQUEL TRACY Address: [address] [address] Name: SAMMY VERA Address: [address] [place] [address]
[2023-06-05 11:09] VITALS: BP 124/76; BMI 27.8
--- NOTE | 2023-06-05 11:09 | MHC.OFFVIS ---
Intake Vital Signs 06/05/23 11:09 Height 5 ft 4 in Weight 162 lb BMI 27.8 BP 124/76 Intake Visit Reasons: POST OP Head Animal Keeper Required: Yes Head Animal Keeper Language: Sign Languages (macro) Information Interpreted: non-clinical & clinical Accompanied by: Self / Same As Patient Allergies azithromycin Allergy (Severe, Verified 06/05/23 11:10) Anaphylaxis guaifenesin [From Robitussin] Allergy (Severe, Verified 06/05/23 11:10) Anaphylaxis hydrocodone [From Vicodin] Allergy (Severe, Verified 06/05/23 11:10) Anaphylaxis naproxen [From Aleve] Allergy (Severe, Verified 06/05/23 11:10) Anaphylaxis oseltamivir [From Tamiflu] Allergy (Severe, Verified 06/05/23 11:10) Anaphylaxis Post menopausal: Yes HPI HPI Comments History of Present Illness Details The patient is presenting post hysteroscopy D&C polypectomy, no complaints minimal vaginal bleeding no feverishness chills or abdominal pain. The pathology showed the following: A.? Endometrium, curettage:? Mixed proliferative and secretory (interval) endometrium; fragments with features of polyp; no atypia identified. B.? Endometrium, polypectomy:? Fragments of endometrial polyp; no atypia identified. The following workup was done over the last few months In 07/26 H&H 12.8/38, mammogram BI-RADS 1 in 07/26, GC and chlamydia negative Co testing done in 11/26 was negative 02/24 Pelvic ultrasound which showed the following: The uterus is anteverted and measures 11 x 6.5 x 6.7 cm in dimension. Uterine echotexture is heterogeneous. There is an 8 x 5 x 4 cm hypoechoic lesion or cyst in the posterior uterine body. The endometrium is thickened measuring 1.9 cm. The endometrium is heterogeneous. There is a 1 x 0.7 x 11 mm hyperechoic area in the endometrium questionable for a polyp. There are nabothian cysts in the cervix. Right ovary has been removed. Left ovary measures 2.4 x 1.8 x 2.2 cm. There are small echogenic foci questionable for calcifications, largest measures 2 x 3 mm. This is similar to previous exam. Previously identified left ovarian cysts are no longer seen. There is no fluid in the pelvis. [facility] Medical History Asthma Congenital deafness Fatty liver GERD (gastroesophageal reflux disease) Heart palpitations History of calculus of gallbladder IBS (irritable bowel syndrome) Knee pain, right TRISTON (obstructive sleep apnea) Restless leg syndrome Seasonal allergies Umbilical hernia Surgical History History of esophagogastroduodenoscopy (EGD) History of right oophorectomy Hx of cholecystectomy Hx of colonoscopy Family History Father Diabetes Heart attack Kidney stones Lung cancer S/P triple vessel bypass Mother H/O: hysterectomy Appendicitis Hernia Maternal Grandmother Hernia Other Ovarian cyst Social History Household Members: Significant Other Housing: Apartment Are you a primary college and career counselor to a significant other at home: No Do you presently have visiting nurse or other home services: No Alcohol intake: never Patient Tobacco Use Status: Never used Tobacco Female Reproductive History Menstrual Age of Menarche: 11 Physical Exam Vital Signs: Last Vital Signs BP 124/76 06/05/23 11:09 BMI result Body Mass Index 27.8 Assessment & Plan Assessment & Plan (1) Abnormal uterine bleeding: Comment: Endometrial polyp status post polypectomy Code(s): N93.9 - Abnormal uterine and vaginal bleeding, unspecified Plan: Mammogram ordered for 07/27. Discussed with the patient the results of the work up done and options of treatment including but not limited to BCP's, cyclic Progesterone, Mirena IUD, endometrial ablation and hysterectomy. All pros, cons, risks and benefits of each option were discussed with the patient and the patient decided to go ahead with cyclic Provera, so a more detailed discussion re: Progesterone treatment including mechanism of action, benefits (regular menses, endometrial protection form unopposed estrogen and reduction in the risk of endometrial hyperplasia and/or cancer ...), risks (Thrombosis, mood changes, weight gain, breast soreness, ? increased breast ca, others). Instructions were given to use a back- up method for contraception since this is not a method control; patient verbalized understanding and agreed with the plan. Orders: Orders MM screening mammo BI Today Z12.31 - Encounter for screening mammogram for malignant neoplasm of breast Medications: New medroxyprogesterone (Provera) start Provera 1 tablet daily from day 15-24 cyclically every months, day 1 being 1st day of menses 10 mg PO DAILY 10 days 30 tabs 0RF Coding Level of Care Code Est Pt Level 3 (55848) Diagnoses Abnormal uterine bleeding N93.9
== END 2023-06-05 11:26 | disposition home or self-care (01) ==
LOC: HO.HWS 11:04
PROVIDERS: PCP Internal Medicine; Visit Provider Obstetrics & Gynecology
DX: N93.9 Abnormal uterine and vaginal bleeding, unspecified (principal)
CPT/HCPCS: 99213

== ENCOUNTER → 2023-06-05 11:04 | Outpatient (BNVA) | payer MEDICAID, SELFPAY | PROVIDERS: PCP Internal Medicine; Visit Provider Obstetrics & Gynecology | DX: N93.9 Abnormal uterine and vaginal bleeding, unspecified (principal); Z90.721 Acquired absence of ovaries, unilateral | CPT/HCPCS: 99212 ==

== ENCOUNTER 2023-07-19 12:44 | Outpatient (REF) | payer MEDICAID, SELFPAY ==
[2023-07-19 15:02] LABS: MANUAL DIFF FLAG NO
[2023-07-19 15:10] LABS: Basophils Absolute Auto 0.1 X10*3/uL (0.0-0.2); Basophils Percent Auto 0.7 % (0-2); Eosinophils Absolute Auto 0.3 X10*3/uL (0.0-0.4); Eosinophils Percent Auto 3.5 % (0-4); Hematocrit 38.1 % (37.0-47.0); Hemoglobin 12.5 g/dl (12.0-16.0); Imm Gran Abs Auto 0.03 X10*3/uL (0.00-0.03); Imm Gran Pct Auto 0.4 % (0.0-0.4); Lymphocytes Absolute Auto 2.3 X10*3/uL (1.2-4.9); Lymphocytes Percent Auto 32.8 % (20-40); Mean Corpuscular HGB Conc 32.8 g/dl (31.0-35.0); Mean Corpuscular Volume 94.5 fL (80.0-98.0); Mean Platelet Volume 10.6 fL (9.4-12.3); Monocytes Absolute Auto 0.5 X10*3/uL (0.1-1.2); Monocytes Percent Auto 6.6 % (2-11); Platelet Count 359 X10*3/uL (160-400); Red Blood Count 4.03 X10*6/uL (4.20-5.50); Red Cell Distribution Width 11.7 % (11.0-16.0); White Blood Count 7.1 X10*3/uL (4.8-10.8)
[2023-07-19 15:39] LABS: Estimated Average Glucose 100 mg/dL; Hemoglobin A1c % 5.1 % (<6.0)
[2023-07-19 15:56] LABS: Alanine Aminotransferase 16 U/L (0-31); Alkaline Phosphatase 60 U/L (39-117); Anion Gap 10 (12-20); Aspartate Amino Transferase 17 U/L (5-31); Bilirubin Total 0.6 mg/dL (0.0-1.0); Blood Urea Nitrogen 26 mg/dL (9-16); Calcium 9.5 mg/dL (8.4-10.2); Carbon Dioxide 26 mmol/L (22-29); Chloride 107 mmol/L (96-108); Cholesterol 202 mg/dL (<200); Estimated Glomerular Filt Rate > 60; Glucose Random 81 mg/dL (60-115); HDL Cholesterol 50 mg/dL (>40); LDL Cholesterol Calculated 124 mg/dL (<100); Sodium 139 mmol/L (135-145); TSH reflex Free T4 0.88 uIU/mL (0.32-4.0); Total Protein 7.3 g/dL (6.5-8.0); Triglycerides 142 mg/dL (<150)
[2023-07-20 04:28] LABS: ~HepC Num1 0.48 S/CO (0.00-0.79); ~Hepatitis C Antibody Nonreactive (Nonreactive)
[2023-07-24 17:19] LABS: HIV RNA PCR Qn Copies Not Detected Copies/mL; HIV RNA PCR Qn Log Copies Not Detected Log cps/mL
== END 2023-07-19 12:45 | disposition home or self-care (01) ==
LOC: HO.CHCLDS 12:44
PROVIDERS: Visit Provider Internal Medicine
DX: Z00.00 Encounter for general adult medical examination without abnormal findings (principal)
CPT/HCPCS: 36415; 80053; 80061; 83036; 84443; 85025; 86803; 87536; 87900

== ENCOUNTER 2023-08-06 10:57 | Outpatient (REF) | payer MEDICAID, SELFPAY | END 2023-08-06 10:58 | disposition home or self-care (01) | LOC: HO.MAMMO 10:57 | PROVIDERS: PCP Internal Medicine; Visit Provider Obstetrics & Gynecology | DX: Z12.31 Encounter for screening mammogram for malignant neoplasm of breast (principal) | CPT/HCPCS: 77063; 77067 ==

== ENCOUNTER → 2023-08-06 11:00 | Outpatient (BNV) | payer MEDICAID, SELFPAY | PROVIDERS: PCP Internal Medicine; Visit Provider Radiology Diagnostic Radiology | DX: Z12.31 Encounter for screening mammogram for malignant neoplasm of breast (principal) | CPT/HCPCS: 77063; 77067 ==

== ENCOUNTER 2023-09-12 09:09 | Outpatient (AMB) | payer MEDICAID, SELFPAY ==
--- NOTE | 2023-09-12 09:23 | A.OFFVIS_ITS ---
Intake Vital Signs 09/12/23 09:29 Height 5 ft 4 in Weight 160 lb 14.999 oz BMI 27.6 Intake Visit Reasons: 3 month provera/DO NOT RS Jig And Fixture Builder Required: Yes Jig And Fixture Builder Language: Sign Languages (macro) Information Interpreted: non-clinical & clinical Accompanied by: Self / Same As Patient Allergies azithromycin Allergy (Severe, Verified 09/12/23 09:30) Anaphylaxis guaifenesin [From Robitussin] Allergy (Severe, Verified 09/12/23 09:30) Anaphylaxis hydrocodone [From Vicodin] Allergy (Severe, Verified 09/12/23 09:30) Anaphylaxis naproxen [From Aleve] Allergy (Severe, Verified 09/12/23 09:30) Anaphylaxis oseltamivir [From Tamiflu] Allergy (Severe, Verified 09/12/23 09:30) Anaphylaxis Post menopausal: Yes HPI HPI Comments History of Present Illness Details Presenting for 3 months Provera follow-up. The patient did not have her menstrual cycle and therefore did not start Provera. No other associated symptoms PFSH Medical History Umbilical hernia Knee pain, right Fatty liver Heart palpitations Asthma Seasonal allergies Restless leg syndrome TRISTON (obstructive sleep apnea) Congenital deafness IBS (irritable bowel syndrome) GERD (gastroesophageal reflux disease) History of calculus of gallbladder Surgical History Hx of colonoscopy History of right oophorectomy Hx of cholecystectomy History of esophagogastroduodenoscopy (EGD) Family History Father Diabetes Heart attack Kidney stones Lung cancer S/P triple vessel bypass Mother H/O: hysterectomy Appendicitis Hernia Maternal Grandmother Hernia Other Ovarian cyst Social History Household Members: Significant Other Housing: Apartment Are you a primary day care provider to a significant other at home: No Do you presently have visiting nurse or other home services: No Alcohol intake: never Patient Tobacco Use Status: Never used Tobacco Female Reproductive History Menstrual Age of Menarche: 11 Physical Exam Vital Signs: BMI result Body Mass Index 27.6 Results AMB Test Urine AMB Test Urine Negative Last Edit by Tracey Mckinney CMA on 09:50 Results Reviewed Results Reviewed: Laboratory Last Values [facility] Clinic Negative 09/12/23 09:50 Assessment & Plan Assessment & Plan (1) Amenorrhea: Code(s): N91.2 - Amenorrhea, unspecified Plan: Urine test done in the office was negative Will order TSH, prolactin, hCG, FSH/LH. Instructions given the patient to schedule a 2 week follow-up appointment. All questions answered, the patient verbalized understanding. Orders: Orders TSH reflex Free T4 09/12/23 N91.2 - Amenorrhea, unspecified Prolactin 09/12/23 N91.2 - Amenorrhea, unspecified HCG Quantitative 09/12/23 N91.2 - Amenorrhea, unspecified AMB HCG Urine Test 09/12/23 N91.2 - Amenorrhea, unspecified, Z32.02 - Encounter for test, result negative Follicle Stimulating Hormone 09/12/23 N91.2 - Amenorrhea, unspecified Lutenizing Hormone 09/12/23 N91.2 - Amenorrhea, unspecified Coding Level of Care Code Est Pt Level 3 (08365) Diagnoses Amenorrhea N91.2
[2023-09-12 09:29] VITALS: BMI 27.6
== END 2023-09-12 09:47 | disposition home or self-care (01) ==
PROVIDERS: PCP Internal Medicine; Visit Provider Obstetrics & Gynecology
DX: N91.2 Amenorrhea, unspecified (principal)
CPT/HCPCS: 99213

== ENCOUNTER 2023-09-12 09:09 | Outpatient (REF) | payer MEDICAID, SELFPAY ==
[2023-09-12 11:37] LABS: HCG Quantitative < 2 mIU/mL; TSH reflex Free T4 0.82 uIU/mL (0.32-4.0)
[2023-09-13 08:23] LABS: Follicle Stimulating Hormone 17.4 mIU/mL; Lutenizing Hormone 7.3 mIU/mL; Prolactin 6.3 ng/mL
== END 2023-09-12 09:10 | disposition home or self-care (01) ==
LOC: HO.LAB 09:09
PROVIDERS: PCP Internal Medicine; Visit Provider Obstetrics & Gynecology
DX: N91.2 Amenorrhea, unspecified (principal)
CPT/HCPCS: 36415; 81025; 83001; 83002; 84146; 84443; 84702; 99212

== ENCOUNTER 2023-09-17 08:33 | Outpatient (AMB) | payer MEDICAID, SELFPAY ==
--- OUTSIDE RECORDS SUMMARY | 2023-09-17 08:35 | XMS_ITS | Continuity of Care Document ---
Author Name Unknown Organization [facility] Address [address] [place] [address]- Care Team Providers Care Golf Ball Inspector Name Role Phone Ranjeet Ly MD, Frankie Primary Care Phys ician [facility] Date[facility]s): 07/07/23 - 07/07/[address] [address]- Discharge Disposition: A-D/C Home Attending Physician: Elie Cross MD Admitting Physician: Elie Cross MD Referring Physician: Not on Staff, Referring MD Allergies, Adverse Reactions, Alerts Substance Reaction Severity Status Zithromax Active Aleve Stomach pain Active Vicodin Active Tamiflu Active guaiFENesin-HYDROcodone Acti ve Immunizations Given and Recorded Vaccine Date Status Refusal Reason rabies vaccine, human diploid cell 07/07/23 Given rabies vaccine, human diploid cell 07/03/23 Given rabies vaccine, human diploid cell 06/30/23 Given Rabies Immune Globulin, Human 1 06/30/23 Given tetanus/diphtheria/pertussis, acel(Tdap) 06/30/23 Given tetanus/diphtheria/pertussis, acel(Tdap) 09/05/16 Given SARS-CoV-2 (COVID-19) mRNA BNT-162b2 vac 11/01/21 Recorded SARS-CoV-2 (COVID-19) mRNA BNT-162b2 vac 03/24/21 Recorded SARS-CoV-2 (COVID-19) mRNA BNT-162b2 vac 03/03/21 Recorded influenza virus vaccine, inactivated 08/28/16 Give n influenza virus vaccine, inactivated 08/12/14 Allan rded pneumococcal 13-valent vaccine 10/19/15 Given hepatitis B adult vaccine 02/21/15 Recorded hepatitis B adult vaccine 08/04/14 Recorded Hepatitis B Vaccine (old term) 09/14/14 Recorded 1Result Comment: right calf puncture infiltrated with 3 ml, 3 ml in right gluteus kody IM Medications aspirin 81 mg oral capsule 1 capsule = 81 mg, By Mouth, Every 4 hours, 0 Refills, Maintenance, 07/09/22 8:51:00 EDT, Partial fill upon patient request if the prescription is for a schedule II opioid drug. Start Date: 07/09/22 Status: Ordered Omeprazole By Mouth, Daily, 0 Refills, Maintenance, 06/30/23 12:20:00 EDT, Partial fill upon patient request if the prescription is for a schedule II opioid drug. Start Date: 06/30/23 Status: Ordered omeprazole 20 mg oral enteric coated capsule 1 capsule = 20 mg, By Mouth, Daily, # 30 capsule, 0 Refills, Maintenance, 05/27/23 18:15:00 EDT, ECCapsule, [id number], Partial fill upon patient request if [...] Confirmed Active Bilateral knee pain Confirmed Active Obese class I Confirmed Active Obesity Confirmed Active Left elbow pain Confirmed Active Pain, joint, upper arm, right Confirmed Active Encounter for preventive health examination Confirmed Active Right shoulder pain Confirmed Active Left shoulder pain Confirmed Active Vital Signs Most recent to oldest [Reference Range]: 1 Height 163 cm (07/07/23 12:52 PM) Weight 89 kg (07/07/23 12:52 PM) Oxygen Saturation [94-100 %] 97 % (07/07/23 12:51 PM) Pulse Rate [55-90 bpm] 58 bpm (07/07/23 12:51 PM) Blood Pressure [90-138/55-84 mm Hg] 128/ 87mm Hg (07/07/23 12:51 PM) Respiratory Rate [16-30 br/min] 18 br/mi n (07/07/23 12:51 PM) Temperature [96.8-100.4 DegF] 97.5 DegF (07/07/23 12:51 PM) Mode of Delivery (Oxygen) Room air (07/07/23 12:51 PM) Blood pressure sites Arm, left (07/07/23 12:51 PM) Temperature Route Temporal (07/07/23 12:51 PM) Dry Weight 89 kg (07/07/23 12:52 PM) Dry Weight Obtained Via Standing scale (07/07/23 12:52 PM) Social History Social History Type Response Smoking Status Never smoker entered on: 07/20/15 Sex Patient Care team information Care Team Personnel Name: Tristan Glover Position: [facility] Outreach Member Role: Lifetime Consulting Physician Name: Frankie Valencia MD Position: [facility] Outreach Member Role: PCP Address: Address: [address] [place] [id number]- [place] Name: Bernice Cantrell [place] Position: [facility] RN Member Role: Primary Care Nurse Name: Angel Hanks RN Position: [facility] ED RN W/OE and Tasks Member Role: Patient Care Provider Name: Elie Cross MD Position: [facility] ED Medicine MD Member Role: Admitting Physician Address: Address: [address] [place] [address] [place] [address]- [place] Name: Teresa Toscano Position: [facility] ED OA Care Team Related Persons Name: CARTER DODD Address: home [address] [place] [address] Name: WINSTON SWIFT Address: [place] [address] Name: RACQUEL TRACY Address: home [address] [place] [address] Name: RACQUEL TRACY Address: home [address] [place] [address] Name: SAMMY VERA Address: home [address] [place] [address]
--- OUTSIDE RECORDS SUMMARY | 2023-09-17 08:35 | XMS_ITS | Continuity of Care Document ---
Author Name Unknown Organization [facility] Address [address] [place] [address]- Care Team Providers Care Rug Cutter Name Role Phone Ranjeet Ly MD, Frankie Primary Care Phys ician Encounter [facility] Date(s): 07/03/23 - 07/03/[address] [address]- Discharge Disposition: A-D/C Home Attending Physician: Elie Cross MD Admitting Physician: Elie Cross MD Referring Physician: Not on Staff, Referring MD Allergies, Adverse Reactions, Alerts Substance Reaction Severity Status Zithromax Active guaiFENesin-HYDROcodone Acti ve Tamiflu Active Aleve Stomach pain Active Vicodin Active Immunizations Given and Recorded Vaccine Date Status Refusal Reason rabies vaccine, human diploid cell 07/03/23 Given rabies vaccine, human diploid cell 06/30/23 Given Rabies Immune Globulin, Human 1 06/30/23 Given tetanus/diphtheria/pertussis, acel(Tdap) 06/30/23 Given tetanus/diphtheria/pertussis, acel(Tdap) 09/05/16 Given SARS-CoV-2 (COVID-19) mRNA BNT-162b2 vac 11/01/21 Recorded SARS-CoV-2 (COVID-19) mRNA BNT-162b2 vac 03/24/21 Recorded SARS-CoV-2 (COVID-19) mRNA BNT-162b2 vac 03/03/21 Recorded influenza virus vaccine, inactivated 08/28/16 Give n influenza virus vaccine, inactivated 08/12/14 Lalan rded pneumococcal 13-valent vaccine 10/19/15 Given hepatitis [...] opioid drug. Start Date: 07/09/22 Status: Ordered Augmentin 250 mg-62.5 mg/5 ml oral powder for reconstitution 17.5 mL, By Mouth, Every 12 hours, for 7 days, # 245 mL, 0 Refills, Acute 07/07/23 17:33:00 EDT, 06/30/23 17:33:00 EDT, REC Powder, [id number], Partial fill upon patient request if the prescription is for a schedule II opioid drug., 168, cm, 0... Start Date: 06/30/23 Stop Date: 07/07/23 Status: Ordered Omeprazole By Mouth, Daily, 0 [...] oldest [Reference Range]: 1 Height 163 cm (07/03/23 12:01 PM) Weight 89.4 kg (07/03/23 12: PM) Oxygen Saturation [94-100 %] 96 % (07/03/23: PM) Pulse Rate [55-90 bpm] 55 bpm (07/03/23: PM) Blood Pressure [90-138/55-84 mm Hg] 134/ 63mm Hg (07/03/23: PM) Respiratory Rate [16-30 br/min] 17 br/mi n (07/03/23 PM) Temperature [96.8-100.4 DegF] 97.1 DegF (07/03/23: PM) Mode of Delivery (Oxygen) Room air (07/03/23: PM) Blood pressure sites Arm, left (07/03/23: PM) Temperature Route Temporal (07/03/23: PM) Dry Weight 89.4 kg (07/03/23 12: PM) Social History Social History Type Response Smoking Status Never smoker entered on: 07/20/15 Sex Note * America LOPEZ, Elie Lerma: PERFORM Event Display: Patient Education Leaflets Authored Date: [id number] Dog Bite ?? [id number] Dog Bite A dog bite can cause a wound deep enough to break the skin. In such cases, the wound is cleaned and??sometimes??closed with stitches (sutures). Wounds would be closed if they're gaping open or in cosmetically important areas, such as the face.??If??the wound is??closed,??it usually isn't??completely??closed. This is so that fluid can drain if the wound becomes infected.??Often, wounds will be left open to heal.??In addition to wound care, a tetanus shot (injection) may be given, if needed. Home care ??? Wash your hands well with soap and warm water before and after caring for the wound. This helpslower the risk of infection. ??? Care for the wound as directed by your provider. If a dressing wasapplied to the wound, be sure to change it as directed. ??? If the wound bleeds, place a clean, soft cloth on the wound. Then firmly apply pressure until the bleeding stops. This may take up to 5 minutes. Don't release the pressure and look at the wound during this time. ??? Most wounds heal [id number] days. But an infection can occur even with correct treatment. So be sure to check the wound daily for signs of infection (see below). ??? Antibiotics may be prescribed. These medicines help prevent or treat infection. If you???re given antibiotics, take them as directed. Also be sure to take allof the medicine. Rabies prevention Rabies is a virus that can be carried in certain animals. These can include domestic animals, such as dogs and cats. Pets fully vaccinated against rabies (2 shots) are at very low risk of infection. But because human rabies is almost always fatal, any biting pet should be confined for 10 days as anextra precaution. In general, if there's a risk for rabies, the following steps may need to be taken: ??? If someone???s pet dog has bitten you, it should be kept in a secure area for the next 10 days to watch for signs of illness. (If the pet pattern ruler won???t allow this, contact your local animal control center.) Ask to see the pet's vaccination history records. If the dog becomes ill or dies during that time, contact your local animal control center at once so the animal can be tested for rabies. If the dog stays healthy for the next 10 days, there's no danger of rabies in the animal or you. oIf a stray dog bit you, contact your local animal control center. They can give information on capture, quarantine, and animal rabies testing. o If you can???t find the animal that bit you in the next 2 days, and if rabies exists in your area, you may need to receive the rabies vaccine series. Callyour healthcare provider or return to the emergency room right away. o All animal bites should be reported to the local animal control center. If you weren't given a form to fill out, you can report it yourself. ?? Follow-up care Follow up with your healthcare provider, or as advised. ?? When to get medical advice Call your provider or get medical care right away if any of these occur: ??? Signs of infection: o Spreading redness or warmth from the wound o Increased pain or swelling o Fever of 100.4??F (38??C) or higher, or as directed by your provider o Colored fluid or pus draining from the wound ??? Signs of rabies infection. Don't wait for any of the symptoms below to start. If you suspect that the dog that bit you is rabid or if the dog is lost and can't be found, you should get the vaccine series. oHeadache o Confusion o Strange behavior o Increased salivating and drooling o Seizure o Hallucination, anxiety, or agitation o Fever ??? Decreased ability to move any body part near the wound ??? Bleeding that can't be stopped after 5 minutes of firm pressure ?? Last Reviewed Date: 2022 ?? [employer]. All rights reserved. This information is not intended as a substitute for professional medical care. Always follow your healthcare professional's instructions. ?? Patient Care team information Care Team Personnel Name: Tristan Glover Position: [facility] Outreach Member Role: Lifetime Consulting Physician Name: Frankie Valencia MD Position: [facility] Outreach Member Role: PCP Address: Address: [address] [place] [address]- Name: Bernice Cantrell [place] Position: [facility] RN Member Role: Primary Care Nurse Name: Jadyn Natarajan RN Position: [facility] ED RN W/OE and Tasks Member Role: Patient Care Provider Name: Elie Cross MD Position: [facility] ED Medicine MD Member Role: Admitting Physician Address: Address: [address] [place] [address]- Name: Chaparrita Aparicio Position: [facility] ED [facility] Member Role: Patient Care Provider Care Team Related Persons Name: CARTER DODD Address: home [address] [facility] [address] [place], [place] Name: WINSTON SWIFT Address: home [place], [place] Name: RACQUEL TRACY Address: home [address] [place] [address], [place] [address] Name: RACQUEL TRACY Address: home [address] Name: SAMMY VERA Address: home [address] [place] [id number]
--- OUTSIDE RECORDS SUMMARY | 2023-09-17 08:35 | XMS_ITS | Continuity of Care Document ---
Author Name Unknown Organization [facility] Address [address] [place] [address]- Care Team Providers Care Chinese Instructor Name Role Phone Ranjeet Ly MD, Frankie Primary Care Phys ician Encounter [facility] Date(s): 09/13/23 - 09/13/[address] [address]- Discharge Disposition: A-D/C Home Attending Physician: Mj Chicas MD Admitting Physician: Mj Chicas MD Referring Physician: Not on Staff, Referring MD Allergies, Adverse Reactions, Alerts Substance Reaction Severity Status Zithromax Active Augmentin Active Aleve Stomach pain Active Tamiflu Active guaiFENesin-HYDROcodone Acti ve Vicodin Active Immunizations Given and Recorded Vaccine Date Status Refusal Reason rabies vaccine, human diploid cell 07/14/23 Given rabies vaccine, human diploid cell 07/07/23 Given [...] Exam Date Time Procedure Performing Provider Status 09/13/23 1:[address] Abd/Pelvis W/ IV Contrast Only Rosa Botello; Auth (Verified) Notes: (CT Abd/Pelvis W/ IV Contrast Only) Reason For Exam: Pain RESULT: CT Abd/Pelvis W/ IV Contrast Only CT Abd/Pelvis W/ IV Contrast Only Hx of Present Illness: Headache, chills, burning with urination. Abdominal cramping and lower back pain. Pt states she also has her period which she has not had in months; Reason: Pain; Clinical Question(s): Appendicitis TECHNIQUE: Spiral CT through the abdomen and pelvis with IV contrast formatted in 3 planes. 100 cc of Omnipaque 300 was administered intravenously. This study was performed without oral contrast. Weight-based protocol using automatic tube modulation was used to optimize exposure parameters. COMPARISON: CT abdomen and pelvis from 05/27/2023 FINDINGS: Motion degraded exam. [place] Findings, Lines and Tubes: None. Visualized Chest: Lung bases are clear. No pleural effusion. The heart is normal in size. No pericardial effusion. Diaphragm: Normal. Liver: Diffuse low-attenuation throughout the liver parenchyma consistent with hepatic steatosis. No evidence of mass. Gallbladder: Absent consistent with prior cholecystectomy. Bile ducts: No biliary ductal dilation. Spleen: Normal. Pancreas: Normal. Adrenal glands: Normal. Kidneys and ureters: No hydronephrosis, stones, or suspicious masses. Small hypodensities that are too small to characterize are noted, requiring no dedicated follow up. Bladder: Normal. Reproductive organs: Uterus is unremarkable. There is ill-defined inflammatory stranding and free fluid centered around the left adnexa extending into the cul-de-sac. Small amount of gas within the vaginal vault is nonspecific. Stomach, small bowel, and large bowel: No abnormal bowel wall thickening or distention. Few colonicdiverticula without evidence of acute diverticulitis. A second colon is tortuous and the cecum is rotated superiorly such that it is in the right midabdomen (coronal image 19). No abnormal colonic dilatation. Appendix: Not seen, but no evidence of appendicitis. Peritoneum and retroperitoneum: Small volume free fluid in the pelvis. No omental or mesenteric lesions. Lymph nodes: No enlarged lymph nodes. Blood vessels: Normal. No aneurysm. No evidence of venous thrombosis. Abdominal and pelvic wall: Small fat-containing umbilical hernia. Abdominal wall laxity. Bones: No acute abnormality. IMPRESSION: Inflammatory stranding and free fluid centered around the left adnexa concerning for LUTE PACKER OR APPLIER etiology of the patient's pain. Recently ruptured ovarian cyst is one possible consideration. Please correlatewith patient history. Follow-up with pelvic ultrasound may be considered. Mild hepatic steatosis. WSN: [id number] Ordering Physician: Mj Chicas Dictated By: Kirk Stock MD Dictated Date/Time: 09/13/23 2:03 pm Reviewed By: Kirk Stock MD Signed By: Kirk Stock MD Signed Date/Time: 09/13/23 2:03 pm Transcribed By: TELMA Transcribed Date/Time: 09/13/23 1:53 pm Vital Signs Most recent to oldest [Reference Range]: 1 2 Height 165 cm (09/13/23 12:57 PM) 165 cm (09/13/23 10:34 AM) Weight 91.3 kg (09/13/23 12:57 PM) 91.3 kg (09/13/23 10:34 AM) Oxygen Saturation [94-100 %] 98 % (09/13/23 12:57 PM) 98 % (09/13/23 10:34 AM) Pulse Rate [55-90 bpm] 82 bpm (09/13/23 12:57 PM) 88 bpm (09/13/23 10:34 AM) Body Mass Index [18.5-24.99 kg/m2] 33.54 kg/m2 *>HHI* (09/13/23 12:57 PM) Blood Pressure [90-138/55-84 mm Hg] 130/ 78mm Hg (09/13/23 12:57 PM) 140/88mm Hg *H* (09/13/23 10:34 AM) Respiratory Rate [16-30 br/min] 18 br/mi n (09/13/23 10:34 AM) Temperature [96.8-100.4 DegF] 98 DegF (09/13/23 10:34 AM) Mode of Delivery (Oxygen) Room air (09/13/23 12:57 PM) Room air (09/13/23 10:34 AM) Blood pressure sites Arm, left (09/13/23 12:57 PM) Dry Weight 91.3 kg (09/13/23 12:57 PM) 91.3 kg (09/13/23 10:34 AM) Social History Social History Type Response Smoking Status Never smoker entered on: 07/20/15 Sex Note * Juan Francisco LOPEZ, Mj: PERFORM Event Display: Patient Education Leaflets Authored Date: [id number] Ovarian Cysts ?? [id number] Ovarian Cysts The ovaries are 2 small organs located on each side of the womb (uterus). They are part of the female reproductive system. Ovarian cysts are sacs filled with fluid or tissue that forms on or inside the ovaries. Ovarian cysts are common, especially during childbearing years. There are different types of cysts.Most are harmless (benign) and go away on their own. They often cause no symptoms. If symptoms do occur, they can include mild pain or pressure in the lower belly (abdomen). Cysts that are large can break (rupture) and bleed. This is called a hemorrhagic cyst. This may cause more severe pain and symptoms. In these cases, you may need hospital care or treatment, such as surgery. You may need more extensive treatment if a cyst causes an ovary to twist (called torsion) orif your healthcare provider suspects your cyst is cancerous. Keep in mind that most cysts are not cancerous, however. General care ??? To help relieve pain, your healthcare provider may recommend using [id number]-fsloxiv pain medicine. If needed, your provider may prescribe stronger pain medicine. ??? Using heat may help relieve your pain. Consider using a heating pad set on low or warm water bottle to relieve discomfort. Taking a warm bath may help you feel more comfortable. ??? Depending on the type of cyst you have, your healthcare provider may advise taking control pills. These help shrink cysts in certain cases. They may also help prevent new cysts from forming. Be sure to take these medicines as directed if they are prescribed. ??? Your healthcare provider may advise you to watch your symptoms over time to see if they go away or worsen. Regular ultrasound tests may also be advised. These can help check if a cyst goes away or grows in size. ?? Follow-up care Follow up with your healthcare provider, or as advised. ?? When to get medical advice Call your healthcare provider right away if any of these occur: ??? Pain gets worse or doesn't get better with home treatment ??? Fever of 100.4??F (38??C) or higher, or as directed by your healthcare provider ??? Nausea and vomiting ??? Weakness, dizziness, or fainting ??? Abnormal vaginal bleeding ?? Last Reviewed Date: 2022 ?? [id number] The [employer]. All rights reserved. This information is not intended as a substitute for professional medical care. Always follow your healthcare professional's instructions. ?? Patient Care team information Care Team Personnel Name: Tristan Glover Position: [facility] Outreach Member Role: Lifetime Consulting Physician Name: Frankie Valencia MD Position: [facility] Outreach Member Role: PCP Address: Address: [address] [place] [address]- [place] Name: Bernice Cantrell [place] Position: [facility] RN Member Role: Primary Care Nurse Name: Teresa Toscano Position: [facility] ED OA Member Role: Patient Care Provider Name: Mj Chicas MD Position: [facility] ED Medicine MD Member Role: Admitting Physician Address: Address: [address] [place] [address] [place] [address]- [place] Name: Catherine Ly RN Position: [facility] ED RN W/OE and Tasks Member Role: Patient Care Provider Care Team Related Persons Name: CARTER DODD Address: home [address] [place] [address] Name: WINSTON SWIFT Address: [place] [address] Name: RACQUEL TRACY Address: [address] [place] [address] Name: RACQUEL TRACY Address: home [address] [place] [address] Name: SAMMY VERA Address: home [address] [place] [address]
--- OUTSIDE RECORDS SUMMARY | 2023-09-17 08:35 | XMS_ITS | Continuity of Care Document ---
Author Name Unknown Organization [facility] Address [address] [place] [address]- Care Team Providers Care Blog Writer Name Role Phone Ranjeet Ly MD, Frankie Primary Care Phys ician Encounter [facility] Date(s): 07/14/23 - 07/14/[address] [address]- Discharge Disposition: A-D/C Home Attending Physician: Barney Castillo MD Admitting Physician: Barney Castillo MD Referring Physician: Not on Staff, Referring MD Allergies, Adverse Reactions, Alerts Substance Reaction Severity Status Zithromax Active guaiFENesin-HYDROcodone Acti ve Aleve Stomach pain Active Vicodin Active Tamiflu Active Immunizations Given and Recorded Vaccine Date [...] capsule, 0 Refills, Maintenance, 05/27/23 18:15:00 EDT, Annel, [facility]/pharmacy #[id number], Partial fill upon patient request if [...] oldest [Reference Range]: 1 Height 163 cm (07/14/23 12:52 PM) Weight 89 kg (07/14/23 12:52 PM) Oxygen Saturation [94-100 %] 97 % (07/14/23 12:52 PM) Pulse Rate [55-90 bpm] 64 bpm (07/14/23 12:52 PM) Blood Pressure [90-138/55-84 mm Hg] 121/ 90mm Hg (07/14/23 12:52 PM) Respiratory Rate [16-30 br/min] 16 br/mi n (07/14/23 12:52 PM) Temperature [96.8-100.4 DegF] 96.8 DegF (07/14/23 12:52 PM) Mode of Delivery (Oxygen) Room air (07/14/23 12:52 PM) Blood pressure sites Arm, left (07/14/23 12:52 PM) Temperature Route Temporal (07/14/23 12:52 PM) Dry Weight 89 kg (07/14/23 12:52 PM) Weight Obtained Via Patient/family state d (07/14/23 12:52 PM) Dry Weight Obtained Via Patient/family s tated (07/14/23 12:52 PM) Social History Social History Type Response Smoking Status Never smoker entered on: 07/20/15 Sex Note * Lilly Bell: PERFORM, SIGN, VERIFY Event Display: Patient Education Handout Authored Date: [id number] Patient Care team information Care Team Personnel Name: Tristan Glover Position: [facility] Outreach Member Role: Lifetime Consulting Physician Name: Frankie Valencia MD Position: [facility] Outreach Member Role: PCP Address: Address: [address] [place] [address]- [place] Name: Bernice Cantrell [place] Position: [facility] RN Member Role: Primary Care Nurse Name: Barney Castillo MD Position: [facility] ED Medicine MD Member Role: Admitting Physician Address: Address: [address] [place] [address]- [place] [address]- [place] Name: Lilly Bell Position: [facility] Associate Professional Member Role: Physician Review Assistant Address: Address: [address] [place] [address] [place] [address]- Care Team Related Persons Name: CARTER DODD Address: home [address] [place] [address] Name: WINSTON SWIFT Address: [place] [address] Name: RACQUEL TRACY Address: home [address] [place] [address] Name: RACQUEL TRACY Address: home [address] [place] [address], [place] [address] Name: SAMMY VERA Address: home [address] [place] [id number]
--- OUTSIDE RECORDS SUMMARY | 2023-09-17 08:35 | XMS_ITS | Continuity of Care Document ---
Author Name Unknown Organization [facility] al Address [address] [place] [address]- Care Team Providers Care Spear Fisher Name Role Phone Ranjeet Ly MD, Frankie Primary Care Phys ician Encounter [facility] Date(s): 06/30/23 - 06/30/[address] [address]- Encounter Diagnosis Rabies, need for prophylactic vaccination against(Final) - 06/30/23 Dog bite(Final) - 06/30/23 Discharge Disposition: A-D/C Home Attending Physician: Devon Christianson MD Admitting Physician: Devon Christianson MD Referring Physician: Not on Staff, Referring MD Allergies, Adverse Reactions, Alerts Substance Reaction Severity Status Zithromax Active guaiFENesin-HYDROcodone Acti ve Tamiflu Active Aleve Stomach pain Active Vicodin Active Immunizations Given and Recorded Vaccine Date Status Refusal Reason Rabies Immune Globulin, Human 1 06/30/23 Given rabies vaccine, human diploid cell 06/30/23 Given tetanus/diphtheria/pertussis, acel(Tdap) 06/30/23 Given tetanus/diphtheria/pertussis, [...] oldest [Reference Range]: 1 2 3 Height 168 cm (06/30/23 5:41 PM) 168 cm (06/30/23 4:07 PM) 168 cm (06/30/23 1:43 PM) Weight 90 kg (06/30/23 1:43 PM) 90 kg (06/30/23 12:19 PM) Oxygen Saturation [94-100 %] 99 % (06/30/23 5:41 PM) 100 % (06/30/23 4:07 PM) 100 % (06/30/23 1:43 PM) Pulse Rate [55-90 bpm] 53 bpm *L* (06/30/23 5:41 PM) 47 bpm *L* (06/30/23 4:07 PM) 54 bpm *L* (06/30/23 1:43 PM) Body Mass Index [18.5-24.99 kg/m2] 31.89 kg/m2 *>HHI* (06/30/23 1:43 PM) Blood Pressure [90-138/55-84 mm Hg] 157/98mm Hg *H* (06/30/23 5:41 PM) 148/90mm Hg *H* (06/30/23 4:07 PM) 140/85mm Hg *H* (06/30/23 1:43 PM) Respiratory Rate [16-30 br/min] 18 br/min (06/30/23 5:41 PM) 17 br/min (06/30/23 4:07 PM) 18 br/min (06/30/23 1:43 PM) Temperature [96.8-100.4 DegF] 98.0 DegF (06/30/23 5:41 PM) 97.9 DegF (06/30/23 4:07 PM) 97.6 DegF (06/30/23 12:19 PM) Mode of Delivery (Oxygen) Room air (06/30/23 5:41 PM) Room air (06/30/23 4:07 PM) Room air (06/30/23 1:43 PM) Blood pressure sites Arm, left (06/30/23 5:41 PM) Arm, left (06/30/23 4:07 PM) Arm, left (06/30/23 1:43 PM) Temperature Route Oral (06/30/23 5:41 PM) Oral (06/30/23 4:07 PM) Oral (06/30/23 12:19 PM) Dry Weight 90 kg (06/30/23 1:43 PM) 90 kg (06/30/23 12:19 PM) Social History Social History Type Response Smoking Status Never smoker entered on: 07/20/15 Sex Note * Iva Martin: PERFORM Event Display: Patient Education Leaflets Authored Date: [id number] Dog Bite ?? [id number] Dog Bite A dog bite can cause [...] during this time. ??? Most wounds heal [id number] days. But an infection can occur even [...] for signs of illness. (If the pet cylinder die machine operator won???t allow this, contact your local animal [...] pressure ?? Last Reviewed Date: 2022 ?? [id number] [employer]. All rights reserved. This information is not intended as a substitute for professional medical care. Always follow your healthcare professional's instructions. ?? Patient Care team information Care Team Personnel Name: Tristan Glover Position: [facility] Outreach Member Role: Lifetime Consulting Physician Name: Frankie Valencia MD Position: [facility] Outreach Member Role: PCP Address: Address: [address] [place] [address]- [place] Name: Bernice Cantrell [place] Position: [facility] RN Member Role: Primary Care Nurse Name: Devon Christianson MD Position: [facility] ED Medicine MD Member Role: Admitting Physician Address: Address: [address] [place] [address]- [place] Name: Janette Ziegler RN Position: [facility] ED RN W/OE and Tasks Member Role: Patient Care Provider Name: Iva Martin Position: [facility] Associate Professional Member Role: Physician Leather Toggler Address: Address: [address] [place] [address]- [place] Name: Phyllis Valdes Position: [facility] ED TA [facility] Member Role: [employer] Care Team Related Persons Name: YOUSIF CARTER Address: home [address] [place] [address] Name: WINSTON SWIFT Address: [place] [address] Name: PHYLLIS TRACY Address: home [address] [address] Name: PHYLLIS TRACY Address: [address] [address] Name: SAMMY VERA Address: home [address] [place] [address]
--- NOTE | 2023-09-17 08:57 | A.OFFVIS_ITS ---
Intake Vital Signs 09/17/23 09:06 BP 124/82 Intake Visit Reasons: ER follow up Allergies azithromycin Allergy (Severe, Verified 09/12/23 09:30) Anaphylaxis guaifenesin [From Robitussin] Allergy (Severe, Verified 09/12/23 09:30) Anaphylaxis hydrocodone [From Vicodin] Allergy (Severe, Verified 09/12/23 09:30) Anaphylaxis naproxen [From Aleve] Allergy (Severe, Verified 09/12/23 09:30) Anaphylaxis oseltamivir [From Tamiflu] Allergy (Severe, Verified 09/12/23 09:30) Anaphylaxis HPI HPI Comments History of Present Illness Details The patient is presenting for follow-up after she went to the emergency room and [facility] on 09/13 with pelvic pain. The following workup was done. CT scan showed fluid around the left adnexal and in the cul-de-sac suggestive of ruptured ovarian cyst, H&H 13.3/39.8, UA and urine test were negative Since then the patient has been doing well, pelvic pain has improved markedly with no other concerns [facility] Medical History Umbilical hernia Knee pain, right Fatty liver Heart palpitations Asthma Seasonal allergies Restless leg syndrome TRISTON (obstructive sleep apnea) Congenital deafness IBS (irritable bowel syndrome) GERD (gastroesophageal reflux disease) History of calculus of gallbladder Surgical History Hx of colonoscopy History of right oophorectomy Hx of cholecystectomy History of esophagogastroduodenoscopy (EGD) Family History Father Diabetes Heart attack Kidney stones Lung cancer S/P triple vessel bypass Mother H/O: hysterectomy Appendicitis Hernia Maternal Grandmother Hernia Other Ovarian cyst Social History Household Members: Significant Other Housing: Apartment Are you a primary client care coordinator to a significant other at home: No Do you presently have visiting nurse or other home services: No Alcohol intake: never Patient Tobacco Use Status: Never used Tobacco Female Reproductive History Menstrual Age of Menarche: 11 Review of Systems Const All systems reviewed & are unremarkable except as noted in HPI and below Physical Exam Vital Signs: Last Vital Signs BP 124/82 09/17/23 09:06 General: Yes no CVA tenderness External Female Exam: normal external appearance and normal appearance of the urethra Speculum Exam - Vagina: normal appearance of the vagina, normal palpation, no lesions and no masses Speculum Exam - Cervix: normal appearance of the cervix, normal palpation, no lesions, no masses and nontender Bimanual exam- vagina & uterus: normal bimanual exam, normal palpation, uterine size normal, normal palpation, uterine shape normal, No Cervical tenderness present and non-tender Bimanual Exam- Adnexa, other: normal adnexae Back/Spine/Pelvis Back: no CVA tenderness Assessment & Plan Assessment & Plan (1) Ruptured ovarian cyst: Code(s): N83.209 - Unspecified ovarian cyst, unspecified side Plan: Urine test done in the office was negative, GC/CT taken. Will order follow-up pelvic ultrasound in 6 weeks. Instructions given the patient to call in case of recurrence of her pelvic pain, temperature above 100.4, nausea or vomiting. All questions answered, the patient verbalized understanding. Orders: Orders CT NG by PCR Today N83.209 - Unspecified ovarian cyst, unspecified side US pelvic and transvaginal Today N83.209 - Unspecified ovarian cyst, unspecified side Coding Level of Care Code Est Pt Level 3 (56239) Diagnoses Ruptured ovarian cyst N83.209
[2023-09-17 09:06] VITALS: BP 124/82
== END 2023-09-17 09:18 | disposition home or self-care (01) ==
LOC: HO.HWS 08:33
PROVIDERS: PCP Internal Medicine; Visit Provider Obstetrics & Gynecology
DX: Z32.02 Encounter for pregnancy test, result negative (principal); N83.209 Unspecified ovarian cyst, unspecified side
CPT/HCPCS: 99213

== ENCOUNTER 2023-09-17 08:33 | Outpatient (REF) | payer MEDICAID, SELFPAY ==
[2023-09-17 13:53] LABS: CT PCR NOT DETECTED (Not Detect.); NG PCR NOT DETECTED (Not Detect.)
== END 2023-09-17 08:34 | disposition home or self-care (01) ==
LOC: HO.LNP 08:33
PROVIDERS: PCP Internal Medicine; Visit Provider Obstetrics & Gynecology
DX: N83.209 Unspecified ovarian cyst, unspecified side (principal)
CPT/HCPCS: 0353U; 81025; 99212

== ENCOUNTER 2023-10-01 15:40 | Outpatient (REF) | payer MEDICAID, SELFPAY ==
[2023-10-01 17:48] LABS: MANUAL DIFF FLAG NO
[2023-10-01 18:03] LABS: Basophils Absolute Auto 0.1 X10*3/uL (0.0-0.2); Basophils Percent Auto 0.6 % (0-2); Eosinophils Absolute Auto 0.4 X10*3/uL (0.0-0.4); Eosinophils Percent Auto 3.9 % (0-4); Hematocrit 39.3 % (37.0-47.0); Hemoglobin 12.7 g/dl (12.0-16.0); Imm Gran Abs Auto 0.02 X10*3/uL (0.00-0.03); Imm Gran Pct Auto 0.2 % (0.0-0.4); Lymphocytes Absolute Auto 2.8 X10*3/uL (1.2-4.9); Lymphocytes Percent Auto 29.9 % (20-40); Mean Corpuscular HGB Conc 32.3 g/dl (31.0-35.0); Mean Corpuscular Hemoglobin 30.3 pg (27.0-33.0); Mean Corpuscular Volume 93.8 fL (80.0-98.0); Mean Platelet Volume 9.5 fL (9.4-12.3); Monocytes Absolute Auto 0.6 X10*3/uL (0.1-1.2); Monocytes Percent Auto 6.1 % (2-11); Neutrophils Absolute Auto 5.5 x10*3/uL (2.0-8.3); Neutrophils Percent Auto 59.3 % (45-73); Platelet Count 370 X10*3/uL (160-400); Red Blood Count 4.19 X10*6/uL (4.20-5.50); Red Cell Distribution Width 11.9 % (11.0-16.0); White Blood Count 9.3 X10*3/uL (4.8-10.8)
== END 2023-10-01 15:41 | disposition home or self-care (01) ==
LOC: HO.CHCLDS 15:40
PROVIDERS: Visit Provider Internal Medicine
DX: R05.9 Cough, unspecified (principal)
CPT/HCPCS: 36415; 85025

== ENCOUNTER 2023-10-01 16:08 | Outpatient (REF) | payer MEDICAID, SELFPAY ==
--- NOTE | ~2023-10-01 | XR_ITS ---
EXAMINATION: XR CHEST CLINICAL INFORMATION: Cough. COMPARISON: None available. TECHNIQUE: 2 views of the chest were obtained. FINDINGS: No significant abnormality is noted involving the heart, lungs, mediastinum, bony thorax or soft tissues. Status post cholecystectomy. XR/XR chest 2V IMPRESSION: Unremarkable examination.
== END 2023-10-01 16:09 | disposition home or self-care (01) ==
LOC: HO.XRAY 16:08
PROVIDERS: Visit Provider Internal Medicine
DX: R05.9 Cough, unspecified (principal)
CPT/HCPCS: 36415; 71046; 85025

== ENCOUNTER → 2023-10-29 12:31 | Outpatient (REF) | payer MEDICAID, SELFPAY ==
--- NOTE | 2023-10-29 12:36 | HM_ITS ---
Cardiac event monitor Indication: Paroxysmal atrial fibrillation Technique: Patient was hooked up to cardiac event monitor on 10/23 for total period of 36 days. Compliance rate was about 56%. I was requested to read this study on 12/09/2023. Findings: Baseline was normal sinus rhythm with lowest heart rate of 51 beats per minute and maximum heart rate 144 beats per minute. There were 2 episodes of nonsustained supraventricular ectopy 1 with aberrancy with irregular R to R interval consistent with brief episodes of atrial fibrillation. There were rare PACs and PVCs noted. There were no significant pauses noted. Patient reported 1 chest pain event that correlated with sinus rhythm and 1 recording correlated with nausea and vomiting that associated with isolated PACs. Eleven times patient reported palpitations skipped heartbeat that correlated either with PACs or short runs of PAT/PAF. Conclusion: 1. Baseline was normal sinus rhythm with no significant pauses 2. Brief episodes of PAF 1 event with aberrancy 3. Patient reported 11 events of palpitations skipped heartbeats correlated with PACs or brief PAF events. MTDD
== END ==
LOC: HO.CARD 12:31
PROVIDERS: PCP Internal Medicine; Visit Provider Internal Medicine
DX: I48.0 Paroxysmal atrial fibrillation (principal)
CPT/HCPCS: 93270

== ENCOUNTER → 2023-10-29 12:36 | Outpatient (BNV) | payer MEDICAID, SELFPAY | PROVIDERS: PCP Internal Medicine; Visit Provider Internal Medicine Cardiovascular Disease | DX: I48.0 Paroxysmal atrial fibrillation (principal) | CPT/HCPCS: 93272 ==

== ENCOUNTER 2023-10-30 11:14 | Outpatient (REF) | payer MEDICAID, SELFPAY ==
--- NOTE | ~2023-10-30 | US_ITS ---
EXAMINATION: US PELVIS CLINICAL INFORMATION: Ovarian cyst. Unknown last menstrual period. COMPARISON: Pelvic ultrasound of 02/20/2023 and prior. TECHNIQUE: Ultrasound of the pelvis is performed using both transabdominal and transvaginal transducers along with Doppler. Transvaginal imaging is performed due to inadequate visualization transabdominally. FINDINGS: The uterus measures 9.7 x 6.0 x 7.0 cm. A 0.5 x 0.5 x 0.6 cm hypoechoic lesion or cyst within the uterine body on the right. Previous exam demonstrated a 0.8 cm lesion. Endometrium is echogenic and heterogeneous with cystic spaces and thickness of 18 mm. A 0.3 cm cyst within the endometrium. Possible 0.4 x 0.7 x 0.7 cm endometrial polyp with vascular stalk. Right ovary not visualized. Left ovary measures 3.4 x 1.8 x 2.7 cm, volume 8.6 mL. A 1.9 x 1.2 x 1.5 cm left ovarian cyst was not identified on the prior exam. US/US pelvic and transvaginal IMPRESSION: 1. Complex, heterogeneous endometrium with cystic spaces and endometrial thickness of 18 mm. Possible 0.4 x 0.7 x 0.7 cm endometrial polyp with vascular stalk. Previous endometrial thickness of 19 mm with possible 1.1 cm polyp. Gynecologic consultation and correlation with clinical exam recommended to determine further management including possible biopsy. 2. Right ovary not visualized. A 1.9 cm left ovarian cyst was not identified on the prior exam. 3. A 0.6 cm hypoechoic mass or cyst within the uterine body. Previous exam demonstrated a 0.8 cm possible mass or cyst.
== END 2023-10-30 11:15 | disposition home or self-care (01) ==
LOC: HO.US 11:14
PROVIDERS: PCP Internal Medicine; Visit Provider Obstetrics & Gynecology
DX: N83.209 Unspecified ovarian cyst, unspecified side (principal)
CPT/HCPCS: 76830; 76856

== ENCOUNTER 2023-11-06 18:01 | Outpatient (REF) | payer MEDICAID, SELFPAY | END 2023-11-06 18:02 | disposition home or self-care (01) | LOC: HO.HHCLNP 18:01 | PROVIDERS: Visit Provider Family Medicine | DX: R05.9 Cough, unspecified (principal); Z11.52 Encounter for screening for COVID-19; Z20.828 Contact with and (suspected) exposure to other viral communicable diseases | CPT/HCPCS: 0241U ==

== ENCOUNTER 2023-11-07 10:42 | Outpatient (AMB) | payer MEDICAID, SELFPAY ==
--- NOTE | 2023-11-07 10:42 | MHC.OFFVIS ---
Intake Intake Visit Reasons: labs follow up Jig Hand Required: Yes Jig Hand Language: Trinidadian Sign Language Information Interpreted: non-clinical & clinical Allergies azithromycin Allergy (Severe, Verified 11/07/23 10:43) Anaphylaxis guaifenesin [From Robitussin] Allergy (Severe, Verified 11/07/23 10:43) Anaphylaxis hydrocodone [From Vicodin] Allergy (Severe, Verified 11/07/23 10:43) Anaphylaxis naproxen [From Aleve] Allergy (Severe, Verified 11/07/23 10:43) Anaphylaxis oseltamivir [From Tamiflu] Allergy (Severe, Verified 11/07/23 10:43) Anaphylaxis HPI HPI Comments History of Present Illness Details The patient scheduled a tele health visit for ultrasound follow-up regarding ruptured ovarian cyst. LMP . Pelvic ultrasound done on 10/30/23 showed the following: The uterus measures 9.7 x 6.0 x 7.0 cm. A 0.5 x 0.5 x 0.6 cm hypoechoic lesion or cyst within the uterine body on the right. Previous exam demonstrated a 0.8 cm lesion. Endometrium is echogenic and heterogeneous with cystic spaces and thickness of 18 mm. A 0.3 cm cyst within the endometrium. Possible 0.4 x 0.7 x 0.7 cm endometrial polyp with vascular stalk. Right ovary not visualized. Left ovary measures 3.4 x 1.8 x 2.7 cm, volume 8.6 mL. A 1.9 x 1.2 x 1.5 cm left ovarian cyst was not identified on the prior exam. [facility] Medical History Umbilical hernia Knee pain, right Fatty liver Heart palpitations Asthma Seasonal allergies Restless leg syndrome TRISTON (obstructive sleep apnea) Congenital deafness IBS (irritable bowel syndrome) GERD (gastroesophageal reflux disease) History of calculus of gallbladder Surgical History Hx of colonoscopy History of right oophorectomy Hx of cholecystectomy History of esophagogastroduodenoscopy (EGD) Family History Father Diabetes Heart attack Kidney stones Lung cancer S/P triple vessel bypass Mother H/O: hysterectomy Appendicitis Hernia Maternal Grandmother Hernia Other Ovarian cyst Social History Household Members: Significant Other Housing: Apartment Are you a primary child care lead teacher to a significant other at home: No Do you presently have visiting nurse or other home services: No Alcohol intake: never Patient Tobacco Use Status: Never used Tobacco Female Reproductive History Menstrual Age of Menarche: 11 Review of Systems Const All systems reviewed & are unremarkable except as noted in HPI and below Reports as per HPI and Reports no additional complaints GI Reports no additional complaints Reports no additional complaints Assessment & Plan Assessment & Plan (1) Abnormal ultrasound of endometrium: Code(s): R93.5 - Abnormal findings on diagnostic imaging of other abdominal regions, including retroperitoneum Plan: Discussed with patient the finding on ultrasound showing thickened echogenic endometrium with possible endometrial polyp, since the patient LMP was on 10/08/23, and pelvic ultrasound was done 22 days from LMP, recommended repeat ultrasound day 4-6 of next cycle will evaluate endometrium and treat accordingly. All questions answered, the patient verbalized understand (2) Ruptured ovarian cyst: Code(s): N83.209 - Unspecified ovarian cyst, unspecified side Plan: Discussed with the patient the right ovary was not visualized on ultrasound will repeat ultrasound of the right ovarian cyst and treat according. All questions answered, the patient verbalized understanding. Communication was through [employer] vehicle [employer] interpreter [id number] I spent a total of 20 minutes reviewing the chart, talking to the patient via phone and documenting in the medical record. Orders: Orders US pelvic and transvaginal Today R93.5 - Abnormal findings on diagnostic imaging of other abdominal regions, including retroperitoneum Telehealth Telehealth Location of provider rendering services: practice address Location of patient: address on file Patient Identification confirmed using: Name, : Yes Telehealth method: voice only Patient verbally consented to treatment: Yes Patient verbally consented to billing insurance company: Yes Patient informed of any privacy concerns related to visit: Yes Coding Level of Care Code Tele Est Pt Level 1 (59672) Diagnoses Abnormal ultrasound of endometrium R93.5 Ruptured ovarian cyst N83.209
== END 2023-11-07 11:58 | disposition home or self-care (01) ==
LOC: HO.HWS 10:42
PROVIDERS: PCP Internal Medicine; Visit Provider Obstetrics & Gynecology
DX: R93.5 Abnormal findings on diagnostic imaging of other abdominal regions, including retroperitoneum (principal); N83.209 Unspecified ovarian cyst, unspecified side
CPT/HCPCS: 99211

== ENCOUNTER → 2023-11-07 10:42 | Outpatient (BNVA) | payer MEDICAID, SELFPAY | PROVIDERS: PCP Internal Medicine; Visit Provider Obstetrics & Gynecology ==

== ENCOUNTER 2023-12-11 11:00 | Outpatient (REF) | payer MEDICAID, SELFPAY ==
--- NOTE | ~2023-12-11 | US_ITS ---
EXAMINATION: US PELVIS CLINICAL INFORMATION: Abnormal endometrium, follow-up LMP 10/08/2024 COMPARISON: Pelvic ultrasound 10/30/2023 TECHNIQUE: Ultrasound of the pelvis is performed using both transabdominal and transvaginal transducers along with Doppler. Transvaginal imaging is performed due to inadequate visualization transabdominally. FINDINGS: Uterus: The uterus is anteverted and measures 10.4 x 5.9 x 6.6 cm. 0.5 x 0.5 cm myometrial cyst is noted. The endometrium is heterogeneous with a few cystic spaces and is thickened, measuring 1.7 cm. Upper limits of normal for endometrial thickness for a premenopausal woman is 1.6 cm. Adnexa: Both ovaries are visualized. There is normal color flow to the adnexa. There is no ovarian torsion. There is no pelvic ascites or fluid collection. Right ovary measures 1.9 x 1.5 x 1.8 cm. Volume 2.7 mL Left ovary measures 2.8 x 2.8 x 1.8 cm. Volume 7.4 mL. US/US pelvic and transvaginal IMPRESSION: 1. Thickened heterogeneous endometrium with a few cystic spaces. be considered. 2. 0.5 cm myometrial cyst. 3. Normal ovaries.
== END 2023-12-11 11:01 | disposition home or self-care (01) ==
LOC: HO.US 11:00
PROVIDERS: PCP Internal Medicine; Visit Provider Obstetrics & Gynecology
DX: R93.5 Abnormal findings on diagnostic imaging of other abdominal regions, including retroperitoneum (principal)
CPT/HCPCS: 76830; 76856

== ENCOUNTER 2023-12-16 10:13 | Outpatient (REF) | payer MEDICAID, SELFPAY ==
--- NOTE | ~2023-12-16 | XR_ITS ---
EXAMINATION: XR BILATERAL SHOULDERS CLINICAL INFORMATION: Bilateral shoulder, trauma, pain. COMPARISON: None available. TECHNIQUE: 5 views of the left shoulder. 4 views of the right shoulder. FINDINGS: Right Shoulder: Mild degenerative changes in the acromioclavicular joint with joint space narrowing and hypertrophic change. Mild degenerative changes with hypertrophic change along the glenoid. No abnormal soft tissue calcifications are identified adjacent to the humeral head.. Left Shoulder: Vnej-am-[id number] degenerative changes in the acromioclavicular joint with joint space narrowing and hypertrophic change. Mild degenerative changes with hypertrophic change along the glenoid. No abnormal soft tissue calcifications identified adjacent to the humeral head. XR/XR shoulder RT min 2V IMPRESSION: Mild degenerative changes in the bilateral shoulders. MRI could be considered for further evaluation if there is clinical concern for fracture or other underlying pathology.
--- NOTE | ~2023-12-16 | XR_ITS ---
EXAMINATION: XR BILATERAL SHOULDERS CLINICAL INFORMATION: Bilateral shoulder, trauma, pain. COMPARISON: None available. TECHNIQUE: 5 views of the left shoulder. 4 views of the right shoulder. FINDINGS: Right Shoulder: Mild degenerative changes in the acromioclavicular joint with joint space narrowing and hypertrophic change. Mild degenerative changes with hypertrophic change along the glenoid. No abnormal soft tissue calcifications are identified adjacent to the humeral head.. Left Shoulder: [id number] degenerative changes in the acromioclavicular joint with joint space narrowing and hypertrophic change. Mild degenerative changes with hypertrophic change along the glenoid. No abnormal soft tissue calcifications identified adjacent to the humeral head. XR/XR shoulder LT min 2V IMPRESSION: Mild degenerative changes in the bilateral shoulders. MRI could be considered for further evaluation if there is clinical concern for fracture or other underlying pathology.
== END 2023-12-16 10:14 | disposition home or self-care (01) ==
LOC: HO.XRAY 10:13
PROVIDERS: Visit Provider Internal Medicine
DX: M25.511 Pain in right shoulder (principal); M25.512 Pain in left shoulder
CPT/HCPCS: 73030

== ENCOUNTER → 2023-12-24 12:51 | Outpatient (REF) | payer MEDICAID, SELFPAY ==
--- NOTE | 2023-12-24 13:20 | CA_ITS ---
Transthoracic Echocardiogram Patient (Last, First, Middle): Miguelito Ro, Gender: Female Date of : 1975 Age: 48 Procedure Date: 12/24/2023 Procedure Type: Transthoracic Echocardiogram Location: OP Height: 162.56 cm Weight: 90.27 kg BSA: 1.95 m2 Heart Rate: bpm BP: 124 / 80 mmHg Edge Trimmer: JERRY Referring MD: Mike Reyna MD Barking Machine Feeder: Sawyer Carrero MD Symptoms: I51.9 - Heart disease, unspecified Study Quality: Adequate ECG Rhythm: Sinus Conclusions: - 1. Low normal LV ejection fraction 50-55% with grade 1 diastolic dysfunction 2. Normal cardiac valvular Doppler 3. Normal RV systolic pressure 4. Upper limits of normal ascending aortic size 5. No gross pericardial effusion Findings Left Ventricle Normal left ventricular cavity size. There is normal left ventricular wall thickness. The left ventricular systolic function is low normal. The visually estimated ejection fraction is between 50-55%. Spectral Doppler is indicative of an impaired relaxation filling pattern. E/E prime ratio is <8, consistent with normal filling pressures. Evidence suggests grade I (mild) diastolic dysfunction. Right Ventricle Normal right ventricular cavity size and systolic function. Atria The left atrium is likely dilated. Interatrial shunt cannot be excluded. The right atrium is normal in size. Aortic Valve Normal aortic valve structure and function. There is no aortic valve stenosis. There is no aortic valve regurgitation. Mitral Valve Normal mitral valve structure and function. There is trace mitral valve regurgitation. There is no mitral valve stenosis. Pulmonic Valve The pulmonic valve is likely normal. Tricuspid Valve Normal tricuspid valve structure. There is trace tricuspid valve regurgitation. The right ventricular systolic pressure is normal. The right ventricular systolic pressure is 23 mmHg. Normal right atrial pressure. There is no evidence of pulmonary hypertension. Great Vessels The pulmonary artery was not well visualized. Venous The inferior vena cava is normal in size and collapses greater than 50% with inspiration. Pericardium/Pleural There is no evidence of pericardial effusion. Prior Study Comparison No significant change compared to prior study dated: 12/25/2022. Measurements 2D Linear Measurements IVSd: 0.87 0.6-0.9/0.6-1.0 cm LVIDd: 4.75 3.9-5.3/4.2-5.9 cm LVIDd Index: 2.44 2.4-3.2/2.2-3.1 cm/m2 LVIDs: 3.13 2.0-3.6 cm LVPWd: 0.95 0.7-1.1 cm Ao Root: 2.70 2.1-3.5 cm LA Diam: 3.70 2.7-3.8/3.0-4.0 cm LAIDs Index: 1.90 1.5-2.3 cm/m2 LV Mass: 183.88 67-162/88-224 g LV Mass Index: 94.30 43-95/49-115 g/m2 LVOT Diam: 2.00 3.0+(-)1.3 cm Mitral Valve MV Pk E: 0.82 MV PK A: 0.88 MV Decel Time: 233.00 E/A: 0.90 E'Lateral: 10.30 E'Medial: 7.94 E/E' Med: 10.40 E/E' Lat: 8.00 PHT: 68.00 MVA PHT: 3.24 Decel [place]: 3.54 Aortic Valve AoV Pk Rosalio: 1.52 AoV Mn Rosalio: 0.95 AoV VTI: 0.37 AoV Pk Grad: 9.00 Aov Mn Grad: 4.00 ANANTH Cont.VTI: 2.18 LVOT LVOT Pk Rosalio: 1.12 LVOT Mn Rosalio: 0.77 LVOT VTI: 0.26 LVOT Pk Grad: 5.00 LVOT Mn Grad: 3.00 LVOT Diam: 2.00 LVOT Area: 3.14 Diastolic Function MV Pk E: 0.82 MV Pk A: 0.88 E/A: 0.90 E'Medial: 7.94 E/E' Med: 10.40 E' Laterial: 10.30 E/E' Lat: 8.00 Right Ventricle TAPSE (mm): 27.00 TVS' Rosalio: 12.00 Tricuspid Valve TR Pk Rosalio: 2.24 TR Pk Grad: 20.00 RA Press: 3.00 RVSP: 23.00 Great Vessels Aorta Ao Root-2D: 2.70 2.0-3.7 cm Ao Asc: 3.60 2.1-3.4 cm Pulmonary Valve PV Pk Rosalio: 0.98 Peak PV Grad: 4.00 Updated in Other Vendor System with Status of Final Sawyer Carrero MD electronically signed on 12/24/2023 4:32:27 PM with status of Final
== END ==
LOC: HO.CARD 12:51
PROVIDERS: PCP Internal Medicine; Visit Provider Internal Medicine
DX: I51.9 Heart disease, unspecified (principal)
CPT/HCPCS: 93306

== ENCOUNTER → 2023-12-24 13:20 | Outpatient (BNV) | payer MEDICAID, SELFPAY | PROVIDERS: PCP Internal Medicine; Visit Provider Internal Medicine Cardiovascular Disease | DX: I51.9 Heart disease, unspecified (principal) | CPT/HCPCS: 93306 ==

== ENCOUNTER 2023-12-31 14:51 | Outpatient (AMB) | payer MEDICAID, SELFPAY ==
--- NOTE | 2023-12-31 15:10 | A.OFFVIS_ITS ---
Intake Vital Signs 12/31/23 15:14 Height 5 ft 4 in Weight 160 lb 14.999 oz BMI 27.6 BP 118/70 Intake Visit Reasons: U/S results Csr Retail Required: Yes Csr Retail Language: Sign Languages (macro) Information Interpreted: non-clinical & clinical Allergies azithromycin Allergy (Severe, Verified 12/31/23 15:16) Anaphylaxis guaifenesin [From Robitussin] Allergy (Severe, Verified 12/31/23 15:16) Anaphylaxis hydrocodone [From Vicodin] Allergy (Severe, Verified 12/31/23 15:16) Anaphylaxis naproxen [From Aleve] Allergy (Severe, Verified 12/31/23 15:16) Anaphylaxis oseltamivir [From Tamiflu] Allergy (Severe, Verified 12/31/23 15:16) Anaphylaxis HPI HPI Comments History of Present Illness Details Presenting for ultrasound follow-up which showed the following: Uterus: The uterus is anteverted and measures 10.4 x 5.9 x 6.6 cm. 0.5 x 0.5 cm myometrial cyst is noted. The endometrium is heterogeneous with a few cystic spaces and is thickened, measuring 1.7 cm. Upper limits of normal for endometrial thickness for a premenopausal woman is 1.6 cm. Adnexa: Both ovaries are visualized. There is normal color flow to the adnexa. There is no ovarian torsion. There is no pelvic ascites or fluid collection. Right ovary measures 1.9 x 1.5 x 1.8 cm. Volume 2.7 mL Left ovary measures 2.8 x 2.8 x 1.8 cm. Volume 7.4 mL The patient had an abnormal endometrium ultrasound done in 10/26 the plan was to repeat ultrasound in the 1st 10 days of the cycle , but the above ultrasound was done today's prior to her menstrual cycle. In addition the patient was counseled about abnormal uterine bleeding with prescribed Provera cyclicly 10 mg p.o. q.d. day 15-24 which was not started since then. [facility] Medical History Umbilical hernia Knee pain, right Fatty liver Heart palpitations Asthma Seasonal allergies Restless leg syndrome TRISTON (obstructive sleep apnea) Congenital deafness IBS (irritable bowel syndrome) GERD (gastroesophageal reflux disease) History of calculus of gallbladder Surgical History Hx of colonoscopy History of right oophorectomy Hx of cholecystectomy History of esophagogastroduodenoscopy (EGD) Family History Father Diabetes Heart attack Kidney stones Lung cancer S/P triple vessel bypass Mother H/O: hysterectomy Appendicitis Hernia Maternal Grandmother Hernia Other Ovarian cyst Social History Household Members: Significant Other Housing: Apartment Are you a primary personal care service provider to a significant other at home: No Do you presently have visiting nurse or other home services: No Alcohol intake: never Patient Tobacco Use Status: Never used Tobacco Female Reproductive History Menstrual Age of Menarche: 11 Review of Systems Const All systems reviewed & are unremarkable except as noted in HPI and below Reports as per HPI and Reports no additional complaints GI Reports no additional complaints Reports no additional complaints Physical Exam Vital Signs: Last Vital Signs BP 118/70 12/31/23 15:14 BMI result Body Mass Index 27.6 Assessment & Plan Assessment & Plan (1) Abnormal ultrasound of endometrium: Code(s): R93.5 - Abnormal findings on diagnostic imaging of other abdominal regions, including retroperitoneum Plan: Since the ultrasound was done 2-3 days prior to menstrual cycle, thickening of the lining of the uterus could be related to the luteal phase of the menstrual cycle, recommended for the patient to call day 1 of her next cycle will schedule ultrasound day 7-10 of her menstrual cycle. All questions answered, the patient verbalized understanding. (2) Abnormal uterine bleeding: Code(s): N93.9 - Abnormal uterine and vaginal bleeding, unspecified Plan: Instructions given to patient to start Provera 10 mg p.o. q.d. cyclic q.day 15- 24. All questions answered, the patient verbalized understanding Coding Level of Care Code Est Pt Level 3 (95771) Diagnoses Abnormal ultrasound of endometrium R93.5 Abnormal uterine bleeding N93.9
[2023-12-31 15:14] VITALS: BP 118/70; BMI 27.6
== END 2023-12-31 16:19 | disposition home or self-care (01) ==
LOC: HO.HWS 14:52
PROVIDERS: PCP Internal Medicine; Visit Provider Obstetrics & Gynecology
DX: R93.5 Abnormal findings on diagnostic imaging of other abdominal regions, including retroperitoneum (principal); N93.9 Abnormal uterine and vaginal bleeding, unspecified
CPT/HCPCS: 99213

== ENCOUNTER → 2023-12-31 14:51 | Outpatient (BNVA) | payer MEDICAID, SELFPAY | PROVIDERS: PCP Internal Medicine; Visit Provider Obstetrics & Gynecology | DX: R93.5 Abnormal findings on diagnostic imaging of other abdominal regions, including retroperitoneum (principal); N93.9 Abnormal uterine and vaginal bleeding, unspecified | CPT/HCPCS: 99212 ==

== ENCOUNTER 2024-01-22 12:48 | Outpatient (AMB) | payer MEDICAID, SELFPAY ==
[2024-01-22 12:50] VITALS: BMI 27.5
--- NOTE | 2024-01-22 12:50 | A.OFFVIS_ITS ---
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 The patient states that she 1st injured her left shoulder while lifting a heavy object at work on 11/21/2023. The patient states that she reaggravated her shoulder approximately 1 month later when she fell. She has done physical therapy exercises which aggravated her pain. She reports difficulty lifting her left hand above shoulder height. She has tried Tylenol and anti-inflammatory medicines which gave her minimal relief. She states that she continues to work but only lifts the heavy objects to the lower shelves, not the higher shelves. Cellar Pumper Name: [id number] Allergies azithromycin Allergy (Severe, Verified 12/31/23 15:16) Anaphylaxis guaifenesin [From Robitussin] Allergy (Severe, Verified 12/31/23 15:16) Anaphylaxis hydrocodone [From Vicodin] Allergy (Severe, Verified 12/31/23 15:16) Anaphylaxis naproxen [From Aleve] Allergy (Severe, Verified 12/31/23 15:16) Anaphylaxis oseltamivir [From Tamiflu] Allergy (Severe, Verified 12/31/23 15:16) Anaphylaxis Medication List - Last Reconciled 01/22/24 by Roly Nicholson MD albuterol sulfate 90 mcg/actuation (Ventolin HFA) 1 inh inhalation QID PRN aspirin 325 mg PO DAILY azelastine 1 spray intranasal BID PRN biotin 5 mg PO DAILY ferrous sulfate 325 mg PO DAILY ibuprofen 800 mg PO BID levocetirizine (Xyzal) 5 mg PO DAILY medroxyprogesterone (Provera) 10 mg PO DAILY 10 days metoprolol tartrate 25 mg PO .PRN 90 days peg 3350-electrolytes 236-22.74-6.74 -5.86 gram (Golytely) 240 mL PO Q10M 1 day valacyclovir 500 mg PO DAILY [facility] Medical History Umbilical hernia Knee pain, right Fatty liver Heart palpitations Asthma Seasonal allergies Restless leg syndrome TRISTON (obstructive sleep apnea) Congenital deafness IBS (irritable bowel syndrome) GERD (gastroesophageal reflux disease) History of calculus of gallbladder Surgical History Hx of colonoscopy History of right oophorectomy Hx of cholecystectomy History of esophagogastroduodenoscopy (EGD) Family History Father Diabetes Heart attack Kidney stones Lung cancer S/P triple vessel bypass Mother H/O: hysterectomy Appendicitis Hernia Maternal Grandmother Hernia Other Ovarian cyst Social History Household Members: Significant Other Housing: Apartment Are you a primary patient care nursing assistant to a significant other at home: No Do you presently have visiting nurse or other home services: No Alcohol intake: never Patient Tobacco Use Status: Never used Tobacco Female Reproductive History Menstrual Age of Menarche: 11 Physical Exam Vital Signs: BMI result Body Mass Index 27.5 Const Other: Well-nourished well-developed very friendly female awake alert and oriented x3 in no acute distress Extrem Other: Bilateral upper extremity examination shows good capillary refill, no skin lesions noted, normal sensation light touch Left shoulder examination shows decreased range of motion when compared to her right shoulder, 4+ out of 5 strength with supraspinatus testing, positive impingement signs, tenderness over her acromioclavicular joint, no instability Results Reviewed Results Reviewed: X-rays of the patient's left shoulder show severe acromioclavicular joint narrowing, a type 2 acromion, no acute bony abnormalities Assessment & Plan Assessment & Plan (1) Left shoulder pain: Code(s): M25.512 - Pain in left shoulder Plan Ms. Ro presents with progressively worsening left shoulder pain and weakness due to impingement syndrome and possible rotator cuff tearing. Thus, I will send the patient for an MRI of her left shoulder to further evaluate the status of her rotator cuff tendons. I will see her back once the MRI is completed to discuss the findings and treatment options. Feel free to call me at any time should questions regarding her orthopedic management arise. Thank you very much for asking me to see this very friendly patient. I spent 22 minutes in reviewing the patient's records and imaging studies, seeing the patient and documenting in the medical record. Orders: Orders MR shoulder LT wo con Today M25.512 - Pain in left shoulder Coding Level of Care Code New Pt Level 2 (90101) Diagnoses Left shoulder pain M25.512
== END 2024-01-22 13:29 | disposition home or self-care (01) ==
PROVIDERS: PCP Internal Medicine; Visit Provider Orthopaedic Surgery
DX: M25.512 Pain in left shoulder (principal)
CPT/HCPCS: 99202

== ENCOUNTER → 2024-01-22 12:48 | Outpatient (BNVA) | payer MEDICAID, SELFPAY | PROVIDERS: PCP Internal Medicine; Visit Provider Orthopaedic Surgery | DX: R00.2 Palpitations (principal); G47.33 Obstructive sleep apnea (adult) (pediatric); M25.512 Pain in left shoulder | CPT/HCPCS: 93005; 99202; 99212 ==

== ENCOUNTER 2024-01-22 13:54 | Outpatient (AMB) | payer MEDICAID, SELFPAY ==
--- NOTE | 2024-01-22 14:12 | MHC.OFFVIS ---
Intake Vital Signs 01/22/24 14:13 Height 5 ft 4 in Weight 188 lb 11.451 oz BMI 32.4 BP 116/68 Blood Pressure Location Lt brachial Position Sitting Pulse 60 Pulse Source Monitor Intake Visit Reasons: r/s 1 year followup w/ekg Intake Note: 1 year follow up PT feels good with EKG Advertising Account Executive Required: Yes Advertising Account Executive Name: MARIKA [id number] Allergies azithromycin Allergy (Severe, Verified 12/31/23 15:16) Anaphylaxis guaifenesin [From Robitussin] Allergy (Severe, Verified 12/31/23 15:16) Anaphylaxis hydrocodone [From Vicodin] Allergy (Severe, Verified 12/31/23 15:16) Anaphylaxis naproxen [From Aleve] Allergy (Severe, Verified 12/31/23 15:16) Anaphylaxis oseltamivir [From Tamiflu] Allergy (Severe, Verified 12/31/23 15:16) Anaphylaxis HPI HPI Comments History of Present Illness Details 48-year-old female presents for her yearly follow-up after echocardiogram and hotler. She has a medical history of palpitations and sleep apnea. She does not use her CPAP. She reports she has been doing well. Denies any chest pains, shortness of breath, dizziness, or nausea. Occasionally gets a fast heart rate. When this occurs she feels flushed and will rest for a few minutes. Typically this resolved within 5-10 minutes. She has not tried the metoprolol yet. She is afraid it will make her drowsy. [facility] Medical History (Updated 01/23/24 @ 10:17 by Yulissa Bui NP) Umbilical hernia Knee pain, right Fatty liver Heart palpitations Asthma Seasonal allergies Restless leg syndrome TRISTON (obstructive sleep apnea) Congenital deafness IBS (irritable bowel syndrome) GERD (gastroesophageal reflux disease) History of calculus of gallbladder Surgical History Hx of colonoscopy History of right oophorectomy Hx of cholecystectomy History of esophagogastroduodenoscopy (EGD) Family History Father Diabetes Heart attack Kidney stones Lung cancer S/P triple vessel bypass Mother H/O: hysterectomy Appendicitis Hernia Maternal Grandmother Hernia Other Ovarian cyst Social History Household Members: Significant Other Housing: Apartment Are you a primary managed care provider to a significant other at home: No Do you presently have visiting nurse or other home services: No Alcohol intake: never Patient Tobacco Use Status: Never used Tobacco Female Reproductive History Menstrual Age of Menarche: 11 Review of Systems Const Denies weakness ENT Denies dizziness Card Denies chest pain, Denies chest pain with activity, Denies syncope, Denies rapid heart rate, Denies pedal edema, Denies edema, Denies leg edema, Denies lightheadedness, Denies palpitations, Denies dyspnea, Denies dyspnea on exertion and Denies orthopnea Resp Denies cough, Denies dyspnea and Denies dyspnea on exertion GI Denies hematochezia and Denies change in stool character Musc Denies abnormal gait, Denies muscle cramps, Denies muscle weakness, Denies numbness, Denies radiating pain into limb and Denies tingling Neuro Denies abnormal gait, Denies dizziness, Denies syncope, Denies numbness, Denies tingling and Denies weakness Endo Denies palpitations Physical Exam Vital Signs: Last Vital Signs Pulse 60 01/22/24 14:13 BP 116/68 01/22/24 14:13 BMI result Body Mass Index 32.4 Office Procedures EKG Details: EKG today. Sinus Braydcarida. Rate of 59 bpm. QRS 90ms. QTc 397ms. [id number], Complete Results Reviewed Results Reviewed: Echo: Conclusions: - 1. Low normal LV ejection fraction 50-55% with grade 1 diastolic dysfunction 2. Normal cardiac valvular Doppler 3. Normal RV systolic pressure 4. Upper limits of normal ascending aortic size 5. No gross pericardial effusion Assessment & Plan Assessment & Plan (1) Heart palpitations: Code(s): R00.2 - Palpitations (2) TRISTON (obstructive sleep apnea): Comment: no CPAP use Code(s): G47.33 - Obstructive sleep apnea (adult) (pediatric) Plan Holter monitor showed runs of PACs. She has not tried Metoprolol tartrate yet. She is going to try it and if she does not tolerate it she will let us know. She has reduce caffeine and eliminated chocolate completely. Advised stress reduction and good sleep hygiene. She does not use CPAP machine. Advised to speak to her provider about options regarding sleep apnea. Will follow-up in one year time or sooner if needed. Coding Level of Care Code Est Pt Level 3 (73753) Diagnoses Heart palpitations R00.2 TRISTON (obstructive sleep apnea) G47.33 CPT Codes EKG - CPT: 15174-[id number], Complete ([id number])
[2024-01-22 14:13] VITALS: BP 116/68; PULSE 60; BMI 32.4
== END 2024-01-22 15:06 | disposition home or self-care (01) ==
PROVIDERS: PCP Internal Medicine; Visit Provider Nurse Practitioner
DX: R00.2 Palpitations (principal); G47.33 Obstructive sleep apnea (adult) (pediatric)
CPT/HCPCS: 93010; 99213

== ENCOUNTER 2024-03-05 11:53 | Outpatient (REF) | payer MEDICAID, SELFPAY ==
--- NOTE | ~2024-03-05 | XR_ITS ---
EXAMINATION: PRE-MRI ORBIT CLINICAL INFORMATION: Pre-MRI COMPARISON: None available. TECHNIQUE: 2 views FINDINGS: No radiopaque foreign body overlies the orbits. Visualized paranasal sinuses clear. No fracture or destructive process. XR/XR pre mri screening IMPRESSION: No radiopaque foreign bodies observed. Patient can proceed for MRI evaluation.
== END 2024-03-05 11:54 | disposition home or self-care (01) ==
LOC: HO.MRI 11:53
PROVIDERS: PCP Internal Medicine; Visit Provider Orthopaedic Surgery
DX: Z13.89 Encounter for screening for other disorder (principal)

== ENCOUNTER 2024-03-18 12:42 | Outpatient (REF) | payer MEDICAID, SELFPAY ==
--- NOTE | ~2024-03-18 | US_ITS ---
EXAMINATION: US PELVIS CLINICAL INFORMATION: Thickened endometrium. COMPARISON: Ultrasound pelvis 12/21/2023: Thickened heterogeneous endometrium with INTELLIGENCE SPECIALIST consult should be considered. TECHNIQUE: Ultrasound of the pelvis is performed using both transabdominal and transvaginal transducers along with Doppler. Transvaginal imaging is performed due to inadequate visualization transabdominally. FINDINGS: Uterus: The uterus is anteverted and measures 10.8 x 6.4 x 6.9 cm. Nabothian cysts are seen in the cervix. The double wall endometrial thickness is 15 mm (previously 17 mm). Cystic changes previously seen in the endometrium are no longer detected and the endometrium appears homogeneous. The uterus is smooth in contour and has normal myometrial echogenicity. No visible fibroid. Adnexa: The right ovary was not seen. Left ovary measures 2.7 x 1.8 x 1.6 cm for a volume of 4.1 mL and appears unremarkable. US/US pelvic and transvaginal IMPRESSION: Endometrium is thickened at 15 mm but cystic changes previously seen are no longer detected. If the patient is in the secretory phase, this could be within normal limits.
== END 2024-03-18 12:43 | disposition home or self-care (01) ==
LOC: HO.US 12:42
PROVIDERS: PCP Internal Medicine; Visit Provider Obstetrics & Gynecology
DX: R93.5 Abnormal findings on diagnostic imaging of other abdominal regions, including retroperitoneum (principal)
CPT/HCPCS: 76830; 76856

== ENCOUNTER 2024-04-07 14:27 | Outpatient (AMB) | payer MEDICAID, SELFPAY ==
--- NOTE | 2024-04-07 14:29 | A.OFFVIS_ITS ---
Intake Visit Reasons: OV-Left shoulder MRI review Intake Note: Miguelito is a 49-year-old female who presents with intermittent left shoulder pain. She has tried Aleve with seem to upset her stomach. She has also taken ibuprofen which gives only mild relief. She has done physical therapy exercises which helped with her range of motion but not her pain. She has not had a cortisone injection. She denies any weakness. Master In Chancery Required: Yes Master In Chancery Language: Sign Languages (macro) Allergies azithromycin Allergy (Severe, Verified 04/07/24 14:29) Anaphylaxis guaifenesin [From Robitussin] Allergy (Severe, Verified 04/07/24 14:29) Anaphylaxis hydrocodone [From Vicodin] Allergy (Severe, Verified 04/07/24 14:29) Anaphylaxis naproxen [From Aleve] Allergy (Severe, Verified 04/07/24 14:29) Anaphylaxis oseltamivir [From Tamiflu] Allergy (Severe, Verified 04/07/24 14:29) Anaphylaxis Medication List - Last Reconciled 04/07/24 by Roly Nicholson MD albuterol sulfate 90 mcg/actuation (Ventolin HFA) 1 inh inhalation QID PRN aspirin 325 mg PO DAILY azelastine 1 spray intranasal BID PRN biotin 5 mg PO DAILY ferrous sulfate 325 mg PO DAILY ibuprofen 800 mg PO BID levocetirizine (Xyzal) 5 mg PO DAILY medroxyprogesterone (Provera) 10 mg PO DAILY metoprolol tartrate 25 mg PO .PRN 90 days omeprazole 20 mg PO DAILY peg 3350-electrolytes 236-22.74-6.74 -5.86 gram (Golytely) 240 mL PO Q10M 1 day sumatriptan succinate 50 mg PO valacyclovir 500 mg PO DAILY PFSH Medical History Umbilical hernia Knee pain, right Fatty liver Heart palpitations Asthma Seasonal allergies Restless leg syndrome TRISTON (obstructive sleep apnea) Congenital deafness IBS (irritable bowel syndrome) GERD (gastroesophageal reflux disease) History of calculus of gallbladder Surgical History Hx of colonoscopy History of right oophorectomy Hx of cholecystectomy History of esophagogastroduodenoscopy (EGD) Family History Father Diabetes Heart attack Kidney stones Lung cancer S/P triple vessel bypass Mother H/O: hysterectomy Appendicitis Hernia Maternal Grandmother Hernia Other Ovarian cyst Social History Household Members: Significant Other Housing: Apartment Are you a primary critical care nurse specialist to a significant other at home: No Do you presently have visiting nurse or other home services: No Alcohol intake: never Patient Tobacco Use Status: Never used Tobacco Female Reproductive History Menstrual Age of Menarche: 11 Physical Exam Const Other: Well-nourished well-developed very friendly female awake alert and oriented x3 in no acute distress Extrem Other: Bilateral upper extremity examination shows good capillary refill, no skin lesions noted, normal sensation light touch Left shoulder examination shows almost full range of motion when compared to her right shoulder, 5/5 strength with supraspinatus testing, positive impingement signs, no instability Results Reviewed Results Reviewed: MRI of the patient's left shoulder shows moderate to severe acromioclavicular joint narrowing, a type 2 acromion, signal change within the supraspinatus tendon most likely due to rotator cuff tendinosis, no rotator cuff tearing noted Assessment & Plan Assessment & Plan (1) Left shoulder pain: Code(s): M25.512 - Pain in left shoulder Category: Medical Plan Ms. Ro presents with left shoulder pain due to impingement syndrome and rotator cuff tendinosis. I had a lengthy discussion with the patient regarding the treatment options. We will hold off on a cortisone injection for now. She has not gotten good relief from ibuprofen. Thus, I did give her a prescription for Celebrex. She will continue with her [id number] exercises. She will contact me prior to her follow-up appointment in 3-4 weeks should any questions or concerns arise. If she has continued discomfort at that time we will further discuss the risks and benefits of a cortisone injection. Feel free to call me at any time should questions regarding her orthopedic management arise. I spent 22 minutes in reviewing the patient's records and imaging studies, seeing the patient and documenting in the medical record. Medications: New celecoxib (Celebrex) The patient is instructed to take the celebrex instead of ibuprofen. She states Aleve upset her stomach. 200 mg PO DAILY PRN 30 caps 2RF pain Coding Level of Care Code Est Pt Level 3 (63878) Diagnoses Left shoulder pain M25.512
== END 2024-04-07 14:49 | disposition home or self-care (01) ==
PROVIDERS: PCP Internal Medicine; Referring Provider Internal Medicine; Visit Provider Orthopaedic Surgery
DX: M25.512 Pain in left shoulder (principal)
CPT/HCPCS: 99214

== ENCOUNTER → 2024-04-07 14:27 | Outpatient (BNVA) | payer MEDICAID, SELFPAY | PROVIDERS: PCP Internal Medicine; Visit Provider Orthopaedic Surgery | DX: M75.42 Impingement syndrome of left shoulder (principal); M77.8 Other enthesopathies, not elsewhere classified | CPT/HCPCS: 99212 ==

== ENCOUNTER → 2024-04-14 12:18 | Outpatient (BNVA) | payer MEDICAID, SELFPAY | PROVIDERS: PCP Internal Medicine; Visit Provider Obstetrics & Gynecology ==

== ENCOUNTER 2024-04-24 11:13 | Outpatient (REF) | payer MEDICAID, SELFPAY ==
--- NOTE | ~2024-04-24 | XR_ITS ---
EXAMINATION: XR FOOT, RIGHT CLINICAL INFORMATION: Pain after fall. COMPARISON: None available. TECHNIQUE: AP, lateral, and oblique views of the right foot. FINDINGS: No acute fracture or subluxation. No unexpected radiopaque foreign bodies. Diffuse soft tissue swelling that is more noticeable adjacent to the distal aspect of the first toe. XR/XR foot RT min 3V IMPRESSION: 1. No acute fracture or malalignment. 2. Diffuse soft tissue swelling more noticeable adjacent to the distal first toe, correlate with physical examination.
--- NOTE | ~2024-04-24 | XR_ITS ---
EXAMINATION: XR CHEST CLINICAL INFORMATION: Post fall, right upper back pain. COMPARISON: Chest radiograph 10/01/2023. TECHNIQUE: 2 views of the chest were obtained. FINDINGS: Normal appearance of the cardiomediastinal silhouette. Increased focal reticular opacities in the medial aspect of the right lower lung. Otherwise, clear lungs. No pleural effusion. No pneumothorax. No displaced osseous fractures. Right upper quadrant surgical clips. XR/XR chest 2V IMPRESSION: 1. Increased focal reticular opacities in the medial aspect of the right lower lung which could be related with subsegmental atelectasis, bronchovascular crowding, aspiration or developing infiltrates. Recommend clinical correlation and attention on follow-up. 2. No displaced osseous fractures.
== END 2024-04-24 11:14 | disposition home or self-care (01) ==
LOC: HO.XRAY 11:13
PROVIDERS: Absent Provider Internal Medicine; PCP Internal Medicine; Visit Provider Pediatrics
DX: S99.921A Unspecified injury of right foot, initial encounter (principal); M62.838 Other muscle spasm; Z91.81 History of falling
CPT/HCPCS: 71046; 73630

== ENCOUNTER 2024-05-06 07:58 | Outpatient (REF) | payer MEDICAID, SELFPAY | END 2024-05-06 07:59 | disposition home or self-care (01) | LOC: HO.HOSX 07:58 | PROVIDERS: Visit Provider Physician Assistant | DX: Z13.89 Encounter for screening for other disorder (principal) ==

== ENCOUNTER 2024-05-15 16:43 | Outpatient (REF) | payer MEDICAID, SELFPAY ==
--- NOTE | ~2024-05-15 | XR_ITS ---
EXAMINATION: XR HIP, LEFT CLINICAL INFORMATION: Left hip pain after fall. COMPARISON: 06/04/2022 TECHNIQUE: AP and frog-leg lateral views of the left hip. FINDINGS: Minimal osteoarthritis the left hip with acetabular osteophytes. Joint space is normal. No fracture or malalignment. Bone mineralization is normal. Soft tissues are unremarkable aside from phleboliths in the central pelvis. XR/XR hip LT min 2V IMPRESSION: No acute fracture or malalignment. Minimal osteoarthritis in the left hip.
== END 2024-05-15 16:44 | disposition home or self-care (01) ==
LOC: HO.XRAY 16:43
PROVIDERS: PCP Internal Medicine; Visit Provider Internal Medicine
DX: M25.552 Pain in left hip (principal)
CPT/HCPCS: 73502

== ENCOUNTER → 2024-05-21 09:45 | Outpatient (BNVA) | payer MEDICAID, SELFPAY | PROVIDERS: PCP Internal Medicine; Visit Provider Obstetrics & Gynecology ==

== ENCOUNTER 2024-08-07 11:14 | Outpatient (REF) | payer MEDICAID, SELFPAY ==
--- NOTE | ~2024-08-07 | MM_ITS ---
EXAMINATION: MM SCREENING DIGITAL BREAST TOMOSYNTHESIS, BILATERAL CLINICAL INFORMATION: Screening. Asymptomatic. COMPARISON: Mammography: Comparison is made with available priors TECHNIQUE: Digital breast mammography with tomosynthesis is performed in both the craniocaudal and mediolateral oblique views along with computer-aided detection (CAD). FINDINGS: There are scattered areas of fibroglandular density (ACR BI-RADS breast composition Category b). There are no significant masses, abnormal calcifications, or other abnormalities. MM/MM tomosynthesis screening BI IMPRESSION: No mammographic evidence of malignancy. ASSESSMENT: BI-RADS BI-RADS 1 - Negative RECOMMENDATION: Routine annual mammography screening. 1 year F/U This examination should not preclude the clinical evaluation of a suspicious palpable abnormality. This patient's information was entered into a reminder system with a target due date for their next mammogram. Electronically signed by: Hayley Costa DO 08/19/2024 01:22 PM EDT
== END 2024-08-07 11:15 | disposition home or self-care (01) ==
LOC: HO.MAMMO 11:14
PROVIDERS: PCP Pediatrics; Visit Provider Internal Medicine
DX: Z12.31 Encounter for screening mammogram for malignant neoplasm of breast (principal)
CPT/HCPCS: 77063; 77067

== ENCOUNTER → 2024-08-07 11:30 | Outpatient (BNV) | payer MEDICAID, SELFPAY | PROVIDERS: PCP Pediatrics; Visit Provider Internal Medicine | DX: Z12.31 Encounter for screening mammogram for malignant neoplasm of breast (principal) | CPT/HCPCS: 77063; 77067 ==

== ENCOUNTER 2024-08-10 14:16 | Outpatient (REF) | payer MEDICAID, SELFPAY ==
[2024-08-10 18:14] LABS: MANUAL DIFF FLAG NO
[2024-08-10 18:21] LABS: Basophils Absolute Auto 0.1 X10*3/uL (0.0-0.2); Basophils Percent Auto 0.8 % (0-2); Eosinophils Absolute Auto 0.2 X10*3/uL (0.0-0.4); Eosinophils Percent Auto 2.4 % (0-4); Hematocrit 39.8 % (37.0-47.0); Imm Gran Abs Auto 0.03 X10*3/uL (0.00-0.03); Imm Gran Pct Auto 0.4 % (0.0-0.4); Lymphocytes Absolute Auto 2.2 X10*3/uL (1.2-4.9); Lymphocytes Percent Auto 29.7 % (20-40); Mean Corpuscular HGB Conc 32.7 g/dl (31.0-35.0); Mean Corpuscular Hemoglobin 30.5 pg (27.0-33.0); Mean Corpuscular Volume 93.4 fL (80.0-98.0); Monocytes Absolute Auto 0.6 X10*3/uL (0.1-1.2); Monocytes Percent Auto 7.4 % (2-11); Neutrophils Absolute Auto 4.4 x10*3/uL (2.0-8.3); Neutrophils Percent Auto 59.3 % (45-73); Platelet Count 340 X10*3/uL (160-400); Red Blood Count 4.26 X10*6/uL (4.20-5.50); Red Cell Distribution Width 12.3 % (11.0-16.0); White Blood Count 7.5 X10*3/uL (4.8-10.8)
[2024-08-10 18:23] LABS: Appearance Urine Cloudy; Color Urine Yellow; Glucose Urine UA Negative (Negative); Leukocyte Esterase Urine Moderate (2+) (Negative); Nitrite Urine Negative (Negative); Specific Gravity - Urine 1.025 (1.005-1.025); UMIC TRIGGER UACC YES; Urine Blood Negative (Negative); Urine Ketones Trace mg/dL (Negative); Urine Protein Trace mg/dL (Neg-Trace)
[2024-08-10 18:27] LABS: Bacteria Urine 4+ (None Seen); RBC Urine 0-2 /HPF (0-2); Squamous Epithelial Cell Urine >20 /HPF (0-2); UACC Culture Trigger YES
[2024-08-10 18:37] LABS: Alanine Aminotransferase 13 U/L (0-31); Albumin Level 4.1 g/dL (3.5-5.0); Alkaline Phosphatase 75 U/L (39-117); Anion Gap 12 (12-20); Aspartate Amino Transferase 18 U/L (5-31); Bilirubin Total 0.7 mg/dL (0.0-1.0); Blood Urea Nitrogen 18 mg/dL (9-16); Carbon Dioxide 25 mmol/L (22-29); Chloride 107 mmol/L (96-108); Estimated Glomerular Filt Rate > 60; Glucose Random 99 mg/dL (60-115); Potassium 3.8 mmol/L (3.3-5.1); Sodium 140 mmol/L (135-145); Total Protein 7.8 g/dL (6.5-8.0)
== END 2024-08-10 14:17 | disposition home or self-care (01) ==
LOC: HO.CHCLDS 14:16
PROVIDERS: Visit Provider Internal Medicine
DX: R10.11 Right upper quadrant pain (principal)
CPT/HCPCS: 36415; 80053; 81001; 85025; 87086

== ENCOUNTER 2024-09-07 14:16 | Outpatient (REF) | payer MEDICAID, SELFPAY ==
[2024-09-08 15:28] LABS: Influenza A PCR NEGATIVE (Negative); Influenza B PCR NEGATIVE (Negative); Resp Syncy Virus RNA Qual PCR NEGATIVE (Negative); SARS COV2 PCR INHOUSE NEGATIVE (Negative)
== END 2024-09-07 14:17 | disposition home or self-care (01) ==
LOC: HO.CHCLNP 14:16
PROVIDERS: Visit Provider Family Medicine
DX: R05.9 Cough, unspecified (principal)
CPT/HCPCS: 0241U

== ENCOUNTER 2025-01-19 12:59 | Outpatient (AMB) | payer MEDICAID, SELFPAY ==
[2025-01-19 13:23] VITALS: BP 114/80; PULSE 56; BMI 36.2
--- NOTE | 2025-01-19 13:23 | MHC.OFFVIS ---
Vital Signs 01/19/25 13:23 Height 5 ft 4 in Weight 210 lb 12.191 oz BMI 36.2 BP 114/80 Blood Pressure Location Lt brachial Position Sitting Pulse 56 Pulse Source Monitor Intake Visit Reasons: 1 yr f/up Lasting Machine Operator Required: Yes Lasting Machine Operator Language: Fine Unhairer Name: voice kamara [id number] Allergies azithromycin Allergy (Severe, Verified 01/19/25 13:29) Anaphylaxis guaifenesin [From Robitussin] Allergy (Severe, Verified 01/19/25 13:29) Anaphylaxis hydrocodone [From Vicodin] Allergy (Severe, Verified 01/19/25 13:29) Anaphylaxis naproxen [From Aleve] Allergy (Severe, Verified 01/19/25 13:29) Anaphylaxis oseltamivir [From Tamiflu] Allergy (Severe, Verified 01/19/25 13:29) Anaphylaxis Medication List - Last Reconciled 01/19/25 by Fallon Moya, RADIO COMMUNICATIONS MECHANICIAN-C albuterol sulfate 90 mcg/actuation (Ventolin HFA) 1 inh inhalation QID PRN biotin 5 mg PO DAILY clotrimazole 1% appl topical BID ferrous sulfate 325 mg PO DAILY ibuprofen 800 mg PO BID levocetirizine (Xyzal) 5 mg PO DAILY metoprolol tartrate 25 mg PO .PRN 90 days omeprazole 20 mg PO DAILY sumatriptan succinate 50 mg PO valacyclovir 500 mg PO DAILY HPI HPI 1 yr f/up: Details: Miguelito is a 49-year-old female with past medical history of congenital deafness, sleep apnea, heart palpitations, 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 Today she reports that she has been taking metoprolol XL 1/2 tablet daily. She says this has helped to settle her heart palpitations. She is feeling better overall. She does not get chest discomfort, shortness of breath, lightheadedness. She walks her dog routinely which she tolerates well. She does not drink caffeinated beverages. She has only decaf tea. She previously used CPAP but says she can not because it makes her throat to dry. Certified sterilization specialist used. [facility] Medical History Umbilical hernia Knee pain, right Fatty liver Heart palpitations Asthma Seasonal allergies Restless leg syndrome TRISTON (obstructive sleep apnea) Congenital deafness IBS (irritable bowel syndrome) GERD (gastroesophageal reflux disease) History of calculus of gallbladder Surgical History Hx of colonoscopy History of right oophorectomy Hx of cholecystectomy History of esophagogastroduodenoscopy (EGD) Family History Father Diabetes Heart attack Kidney stones Lung cancer S/P triple vessel bypass Mother H/O: hysterectomy Appendicitis Hernia Maternal Grandmother Hernia Other Ovarian cyst Social History Household Members: Significant Other Housing: Apartment Are you a primary elderly caregiver to a significant other at home: No Do you presently have visiting nurse or other home services: No Alcohol intake: never Patient Tobacco Use Status: Never used Tobacco Female Reproductive History Menstrual Age of Menarche: 11 Review of Systems Const Details: hearing/ speech deficit - uses sign language interpretor All systems reviewed & are unremarkable except as noted in HPI and below ENT Denies dizziness Card Denies chest pain, Denies chest pain at rest, Denies chest pain with activity, Denies rapid heart rate, Denies pedal edema, Denies edema, Denies leg edema, Denies lightheadedness, Denies palpitations, Denies dyspnea, Denies dyspnea on exertion and Denies orthopnea Resp Denies cough, Denies dyspnea and Denies dyspnea on exertion GI Denies hematochezia and Denies change in stool character Musc Denies abnormal gait, Denies limited range of motion, Denies muscle cramps, Denies muscle weakness, Denies numbness, Denies radiating pain into limb, Denies stiffness and Denies tingling Neuro Denies abnormal gait, Denies dizziness, Denies numbness and Denies tingling Endo Denies palpitations Physical Exam Vital Signs: Last Vital Signs Pulse 56 01/19/25 13:23 BP 114/80 01/19/25 13:23 BMI result Body Mass Index 36.2 Const General: cooperative, healthy appearing, comfortable and no acute distress Orientation/consciousness: patient oriented x3 Neck Neck: Yes normal visual inspection and Yes no JVD Resp Effort & Inspection: normal respiratory effort Auscultation: clear to auscultation bilaterally, no rales, no rhonchi and no wheezes Cardio Rate: regular rate Rhythm: regular rhythm Heart sounds: S1 normal heart sound present, S2 normal heart sound present, no gallops, no murmurs and no rubs Neuro General: patient oriented x3 Extrem General: Yes normal to inspection, No no pedal edema and No calf tenderness Psych Appearance: grossly normal Mental Status: mental status grossly normal Speech and movement: Normal speech and movement present (appropriate use of sign language with electrical and electronic assembler) Office Procedures EKG Details: Today, read by me, sinus bradycardia, can not exclude prior anterior infarct, rate 56, QTC 382 milliseconds [id number], Complete Assessment & Plan Assessment & Plan (1) Heart palpitations: Code(s): R00.2 - Palpitations Category: Medical Plan: Prior reports of heart palpitations. Cardiac event monitor done 10/29/2023 showed brief episodes of SVE, PAT or PAF. Last echo 10/23/23 shows EF 50-55%, grade 1 diastolic dysfunction, left atrium likely dilated, right atrium normal. EKG done today showing sinus bradycardia, rate 56. She is taking metoprolol XL 12.5 mg daily. Palpitations currently suppressed. PAF not definitive diagnosis. Chads Vasc score of 1, female. No indication for anticoagulation at this time. Instructed to notify this office if she has recurrent episodes of palpitations at which time a Holter monitor will be done. Reviewed avoidance of caffeine, maintain good hydration, adequate rest and exercise. Cardiology follow-up 1 year, sooner if needed. Emergency care if ever needed for sustained rapid heart palpitations. (2) PAC (premature atrial contraction): Code(s): I49.1 - Atrial premature depolarization Category: Medical (3) TRISTON (obstructive sleep apnea): Comment: no CPAP use Code(s): G47.33 - Obstructive sleep apnea (adult) (pediatric) Category: Medical Plan: She states she is unable to use CPAP. She takes it off in the night and that is dry throat. Going forward if she does have finding of PAF this will need to be further addressed. Plan Time spent on chart review, documentation, interview and assessment Medications: Changed From metoprolol tartrate Take 1 tablet daily as needed for palpitations. May take an additional tablet if palpitations persist. Max dose 2 tabs per day. 25 mg PO .PRN 90 days 90 tabs 3RF palpitations To metoprolol tartrate 12.5 mg (1/2 x 25 mg) PO DAILY 90 days 45 tabs 3RF palpitations Coding Level of Care Code Est Pt Level 3 (72214) Complex EM visit Add On G2211 Diagnoses Heart palpitations R00.2 PAC (premature atrial contraction) I49.1 TRISTON (obstructive sleep apnea) G47.33 CPT Codes EKG - CPT: 04522-[id number], Complete ([id number]) Time Spent (min) 24
--- OUTSIDE RECORDS SUMMARY | 2025-01-19 15:12 | XMS_ITS | Encounter Summary ---
Author Organization [employer] Address [address] [place] [address] Care Team Providers Care Sand Cutting Machine Operator Name Role Phone Frankie Valencia MD Primary Care Prov ider Val Botello DDQuyen Unavailable Unavailable Encounter Details Date Type Department Care Team (Late Contact Info) Description 07/30/2023 Orders Only [facility] [address] [place] [address] Frankie Valencia MD [address] [place] [address] Screening for colon cancer Social History Tobacco Use Types Packs/Day Years Used Date Smoking Tobacco: Never Passive Smoke Exposure: Never Smokeless Tobacco: Never Comments Unknown Sex and Gender Information Value Date Recorded Sex Assigned at Female 09/03/2022 10:23 AM EDT Legal Sex Female 10:23 AM EDT Gender Identity Female 09/03/2022 10:23 AM EDT Sexual Orientation Straight 09/03/2022 10 :23 AM EDT documented as of this encounter Plan of Treatment Upcoming Encounters Date Type Department Care Team (Late Contact Info) Description 01/27/2025 10:00 AM EDT Office Visit [facility] [address] [place] [address] Kalli Arnold [address] [place] [address] documented as of this encounter Procedures Procedure Name Priority Date/Time Associated Diagnosis Comments LAB COLOGUARD?? COLON CANCER SCREEN Routine 08/06/2023 10:00 AM EDT Screening for colon cancer documented in this encounter Results * Cologuard?? colon cancer screening (08/06/2023 10:00 AM EDT) Cologuard Result Negative Negative 08/14/20 4:37 AM EDT [facility] [employer] (CLIA #:[id number]) Comment: NEGATIVE TEST RESULT. A negative Cologuard result indicates a low likelihood that a colorectal cancer (CRC) or advanced adenoma (adenomatous polyps with more advanced pre-malignant features) ??is present. The chance that a person with a negative Cologuard test has a colorectal cancer is less than 1 in 1500 (negative predictive value >99.9%) or has an ??advanced adenoma is less than ??5.3% (negative predictive value 94.7%). These data are based on a prospective cross-sectional study of 10,000 individuals at average risk for colorectal cancer who were screened with both Cologuard and colonoscopy. (Kiran Weber et al, N Engl J Med 2014;370(14):1286- 1297) The normal value (reference range) for this assay is negative. COLOGUARD RE-SCREENING RECOMMENDATION: Periodic colorectal cancer screening is an important part of preventive healthcare for asymptomatic individuals at average risk for colorectal cancer. ??Following a negative Cologuard result, the [place] Cancer Society and U.S. Multi-Society Task Force screening guidelines recommend a Cologuard re-screening interval of 3 years. References: [employer] Society Guideline for Colorectal Cancer Screening: https://www.cancer.org/cancer/iptlg-toygmb-zrllym/bitkvawom-omybcagvj-awebojn/ac s-rec ommendations.html.; Kike DK, Nereyda CR, James LermaK, Colorectal Cancer Screening: Recommendations for Physicians and Patients from the U.S. Multi-Society Task Force on Colorectal Cancer Screening , Am J Gastroenterology 2017; 112:5039-8000. TEST DESCRIPTION: Composite algorithmic analysis of stool DNA-biomarkers with hemoglobin immunoassay. ?? Quantitative values of individual biomarkers are not reportable and are not associated with individual biomarker result reference ranges. Cologuard is intended for colorectal cancer screening of adults of either sex, 45 years or older, who are at average-risk for colorectal cancer (CRC). Cologuard has been approved for use by the U.S. FDA. The performance of Cologuard was established in a cross sectional study of average-risk adults aged 50-84. Cologuard performance in patients ages 45 to 49 years was estimated by sub-group analysis of near-age groups. Colonoscopies performed for a positive result may find as the most clinically significant lesion: colorectal cancer [4.0%], advanced adenoma (including sessile serrated polyps greater than or equal to 1cm diameter) [20%] or non- advanced adenoma [31%]; or no colorectal neoplasia [45%]. These estimates are derived from a prospective cross-sectional screening study of 10,000 individuals at average risk for colorectal cancer who were screened with both Cologuard and colonoscopy. (Kiran Chavira al, N Engl J Med 2014;370(14):4908-9603.) Cologuard may produce a false negative or false positive result (no colorectal cancer or precancerous polyp present at colonoscopy follow up). A negative Cologuard test result does not guarantee the absence of CRC or advanced adenoma (pre-cancer). The current Cologuard screening interval is every 3 years. ([place] Cancer Society and U.S. Multi-Society Task Force). Cologuard performance data in a 10,000 patient pivotal study using colonoscopy as the reference method can be accessed at the following location: www.House Party.com/results. Additional description of the Cologuard test process, warnings and precautions can be found at www.Scil Proteinsrd.com. Stool specimen (specimen) 08/06/2023 10:00 AM EDT 08/07/2023 11:48 PM EDT Frankie Ly MD LAB MOLECULAR DIAG NOSTICS ORDERABLES Final Result [address] [employer] (CLIA #:[id number]) [address] [place] [address], documented in this encounter Visit Diagnoses Diagnosis Screening for colon cancer Special screening for malignant neoplasms, colon documented in this encounter Care Teams Sand Cutting Machine Operator Relationship Specialty Start Date End Date Frankie Valencia MD [address] [place] [address] PCP - General Internal Medicine 04/03/20 Val Botello DDS [address] [place] [address] Resident Dental Mold Cutting Machine Operator 12/26/22 documented as of this encounter
--- OUTSIDE RECORDS SUMMARY | 2025-01-19 15:12 | XMS_ITS | Encounter Summary ---
Author Organization [employer] Address [address] [place] [address] Care Team Providers Care Interventional Tech Name Role Phone Frankie Valencia MD Primary Care Prov ider Val Botello DDS Unavailable Unavailable Reason for Visit * Reason Onset Date Comments Referral 01/09/2024 Encounter Details Date Type Department Care Team ([facility] Contact Info) Description 01/09/2024 Telephone [facility] [address] [place] [address] Frankie Valencia MD [address] [place] [address] Referral Social History Tobacco Use Types Packs/Day Years Used Date Smoking Tobacco: Never Passive Smoke Exposure: Never Smokeless Tobacco: Never Depression Answer Date Recorded Patient Health Questionnaire-9 Score 6 09/12/2023 Patient Health Questionnaire-9 Score 6 09/12/2023 Last PHQ-9: Questionnaire Data Not on file 1 11/12/2022 Housing Stability Answer Date Recorded What is your housing situation today? I have housing today, but I am worried about losing housing in the future 08/19/[address] you li ve. Do you have problems with any of the following? None of the above 08/19/2023 Food Insecurity Answer Date Recorded Within the past 12 months, y ou worried that your food would run out before you got money to buy more: Sometimes True 2022 Within the past 12 months,th e food you bought just didn't last and you didn't have enough money to get more: Sometimes True 08/19/2023 Transportation Answer Date Recorded In the past 12 months, has l ack of transportation kept you from medical appts, meetings, work or from getting things needed for daily living? No 08/19/2023 Utilities Answer Date Recorded In the past 12 months, has t he [employer], gas, oil or water [employer] threatened to shut off services in your home? Yes 08/12/2023 Depression Answer Date Recorded Patient Health Questionnaire-2 Score 1 09/12/2023 Comments Unknown Sex and Gender Information Value Date Recorded Sex Assigned at Female 09/03/2022 10:23 AM EDT Legal Sex Female 10:23 AM EDT Gender Identity Female 09/03/2022 10:23 AM EDT Sexual Orientation Straight 09/03/2022 10 :23 AM EDT documented as of this encounter Miscellaneous Notes * Telephone Encounter - Chasidy Natarajan - 01/09/2024 4:10 PM EST Referral refaxed to [facility] ortho * Telephone Encounter - Luz Maria Wilson - 01/09/2024 11:55 AM EST Tc from pt requesting for referral to be faxed to office at [facility] orthopedics. States officehas not received referral. Please fax to [phone] documented in this encounter Plan of Treatment Upcoming Encounters Date Type Department Care Team (Late st Contact Info) Description 01/27/2025 10:00 AM EDT Office Visit [facility] [address] [place] [address] Jose Arnoldanita [address] [place] [address] documented as of this encounter Visit Diagnoses Not on filedocumented in this encounter Additional Health Concerns Assessment Noted Time PHQ-9 Depression Total Score: 6 09/12/20 23 4:10 PM EST documented as of this encounter Care Teams Interventional Tech Relationship Specialty Start Date End Date Frankie Valencia MD [address] [place] [address] PCP - General Internal Medicine 04/03/20 Val Botello DDS [address] [place] [address] Resident Dental Enterprise Sales Person 12/26/22 documented as of this encounter
--- OUTSIDE RECORDS SUMMARY | 2025-01-19 15:12 | XMS_ITS | Encounter Summary ---
Author Organization [employer] Address [address] [place] [address] Care Team Providers Care Beam Dyer Recessed Vat Name Role Phone Frankie Valencia MD Primary Care Prov ider Val Botello DDQuyen Unavailable Unavailable Reason for Visit * Reason Onset Date Comments Nurse Triage 09/13/2023 Encounter Details Date Type Department Care Team (Late st Contact Info) Description 09/13/2023 Telephone [facility] [address] [place] [address] Frankie Valencia MD [address] [place] [address] Nurse Triage Social History Tobacco Use Types Packs/Day Years [...] the past 12 months, has t he [address] [employer], gas, oil or water [employer] threatened to shut off services in your [...] encounter Miscellaneous Notes * Telephone Encounter - Pavithra Ingram RN - 09/13/2023 9:59 AM EST Triage call with ASL ID [id number] Pt reports just started Menstruating after 3 months of missed periods. Bleeding just started last night and Pt reports cramping, bloating and isn't able to tell comic writer how heavy the flow is. Pt also reports burning with urination, headache, low back pain, chills but, temp is 97.7 and leg pain. Pt is advised to come to [facility] to be seen by provider and reports unable to get a ride to facility. Pt is s uggesting that Pt lives in [place] and [facility] is close by. Pt reports will go to ED in [facility] for evaluation. Pt is advised to call [facility] after evaluation for follow up and Pt agrees. Pt is drinking adequate liquids and agrees with disposition. Protocol Used: Urinary Symptoms (Adult) Protocol-Based Disposition: See in Office or Video Visit Today Video visit not offered Positive Triage Questions: * Side (flank) or lower back pain present * Urinating more frequently than usual (i.e., frequency) * All higher-acuity triage questions were negative Care Advice Discussed: * Reasons To Call Back - Fever occurs - Pain or burning with urination - Unable to urinate and bladder feels full - You become worse * Telephone Encounter - Melody Wongo - 09/13/2023 9:29 AM EST Symptoms: Menstrual Cramps, Menstrual Periods Absent or Missed Outcome: Schedule an urgent appointment (within 4 hours) or talk to a nurse or provider soon Reason: Severe pain now The caller accepted this outcome documented in this encounter Plan of Treatment Upcoming Encounters Date Type Department Care Team (Late st Contact Info) Description 01/27/2025 10:00 AM EDT Office Visit [facility] [address] [place] [address] Kalli Arnold [address] [place] [address] documented as of this encounter Visit Diagnoses Not on filedocumented in this encounter Additional Health Concerns Assessment Noted Time PHQ-9 Depression Total Score: 6 09/12/20 23 4:10 PM EST documented as of this encounter Care Teams Beam Dyer Recessed Vat Relationship Specialty Start Date End Date Frankie Valencia MD [address] [place] [address] PCP - General Internal Medicine 04/03/20 Val Botello DDS [address] [place] [address] Resident Dental Seam Rubber 12/26/22 documented as of this encounter
--- OUTSIDE RECORDS SUMMARY | 2025-01-19 15:12 | XMS_ITS | Encounter Summary ---
Author Organization [employer] Address [address] [place] [address] Care Team Providers Care Assistant Program Manager Name Role Phone Frankie Valencia MD Primary Care Prov ider Val Botello DDQuyen Unavailable Unavailable Encounter Details Date Type Department Care Team ([facility] Contact Info) Description 03/17/2024 Orders Only [facility] CHC MED & PEDS [address] [place], [place] [phone] Frankie Valencia MD [address] [place] [address] Social History Tobacco Use Types Packs/Day Years [...] the past 12 months, has t he electric, gas, oil or water company threatened to shut off services in your [...] Description 01/27/2025 10:00 AM EDT Office Visit [facility] ADULT DENTAL [address] [place] [address] Catalina Radhashaylee [address] [place] [address] documented as of this encounter Procedures Procedure Name Priority Date/Time Associated Diagnosis Comments US PELVIS TRANSVAGINAL Routine 03/18/2024 1:47 PM EDT documented in this encounter Results * US Pelvis Transvaginal (03/18/2024 1:47 PM EDT) Anatomical Region Laterality Modality Pelvis Ultrasound 03/18/2024 1:47 PM EDT Narrative 04/21/2024 11:01 PM EDT ? [facility] ?[address] ?[place] [address] ? Ultrasound Report ? Signed ? Patient: Jia,Miguelito ?MR#: [id number] ? : 1975 ?Acct:[id number] ? Age/Sex: 48 / F ?ADM Date: 05/15/24 ? Loc: HO.US ? Attending Dr: Osman Welsh MD ? Ordering Physician: Osman Welsh MD ?? Date of Service: 03/18/24 ?? Procedure(s): US pelvic and transvaginal ?? Accession Number(s): [id number] ? cc: Frankie Valencia MD; Osman Welsh MD ? EXAMINATION: ? US PELVIS ? CLINICAL INFORMATION: ? Thickened endometrium. ? COMPARISON: ?? Ultrasound pelvis 12/21/2023: Thickened heterogeneous endometrium with ? RFID SYSTEMS ENGINEER consult should be considered. ? TECHNIQUE: ?? Ultrasound of the pelvis is performed using both transabdominal and ?? transvaginal transducers along with Doppler. Transvaginal imaging is ?? performed due to inadequate visualization transabdominally. ? FINDINGS: ?? Uterus: ?? The uterus is anteverted and measures 10.8 x 6.4 x 6.9 cm. Nabothian ?? cysts are seen in the cervix. ? The double wall endometrial thickness is 15 mm (previously 17 mm). ?? Cystic changes previously seen in the endometrium are no longer ?? detected and the endometrium appears homogeneous. ? The uterus is smooth in contour and has normal myometrial echogenicity. ?? No visible fibroid. ? Adnexa: ?? The right ovary was not seen. Left ovary measures 2.7 x 1.8 x 1.6 cm ?? for a volume of 4.1 mL and appears unremarkable. ? US/US pelvic and transvaginal ?? IMPRESSION: ?? Endometrium is thickened at 15 mm but cystic changes previously seen ?? are no longer detected. If the patient is in the secretory phase, this ?? could be within normal limits. ? Dictated By: ?Elio Mendez MD ? Signed By: ?<Electronically signed by Elio Mendez MD in OV> ? 04/21/242256 ? DD/ 1347 ? TD/TT: ? Metal Hanging Supervisor: SS ? Procedure Note Sybil Bradley - 04/21/2024 [id number] [place] [address] Ultrasound Report Signed Patient: Miguelito Ro#: [id number] : 1975Acct:[id number] Age/Sex: 48 / FADM Date: 03/18/24 Loc: HO.US Attending Dr: Osman Welsh MD Ordering Physician: Osman Welsh MD Date of Service: 03/18/24 Procedure(s): US pelvic and transvaginal Accession Number(s): [id number] cc: Frankie Valencia MD; Osman Welsh MD EXAMINATION: US PELVIS CLINICAL INFORMATION: Thickened endometrium. COMPARISON: Ultrasound pelvis 12/21/2023: Thickened heterogeneous endometrium with RFID SYSTEMS ENGINEER consult should be considered. TECHNIQUE: Ultrasound of the pelvis is performed using both transabdominal and transvaginal transducers along with Doppler. Transvaginal imaging is performed due to inadequate visualization transabdominally. FINDINGS: Uterus: The uterus is anteverted and measures 10.8 x 6.4 x 6.9 cm. Nabothian cysts are seen in the cervix. The double wall endometrial thickness is 15 mm (previously 17 mm). Cystic changes previously seen in the endometrium are no longer detected and the endometrium appears homogeneous. The uterus is smooth in contour and has normal myometrial echogenicity. No visible fibroid. Adnexa: The right ovary was not seen. Left ovary measures 2.7 x 1.8 x 1.6 cm for a volume of 4.1 mL and appears unremarkable. US/US pelvic and transvaginal IMPRESSION: Endometrium is thickened at 15 mm but cystic changes previously seen are no longer detected. If the patient is in the secretory phase, this could be within normal limits. Dictated By: Elio Mendez MD Signed By: <Electronically signed by Elio Mendez MD in OV> 04/21/24 6697 DD/ 1347 TD/TT: Metal Hanging Supervisor: MADELYN [facility] External Provider IMG US PROCEDURES Edited Result - Final documented in this encounter Visit Diagnoses Not on filedocumented in this encounter Additional Health Concerns Assessment Noted Time PHQ-9 Depression Total Score: 6 09/12/20 23 4:10 PM EST documented as of this encounter Care Teams Assistant Program Manager Relationship Specialty Start Date End Date Frankie Valencia MD [address] [place] [address] PCP - General Internal Medicine 04/03/20 Val Botello DDS [address] [place] [address] Resident Dental Nursery Nurse 12/26/22 documented as of this encounter
--- OUTSIDE RECORDS SUMMARY | 2025-01-19 15:12 | XMS_ITS | Encounter Summary ---
Author Organization [employer] Address [address] [place] [address] Care Team Providers Care Program Coordinator Name Role Phone Frankie Valencia MD Primary Care Prov ider Val Botello DDS Unavailable Unavailable Reason for Visit * Reason Onset Date Comments medication 10/16/2023 Encounter Details Date Type Department Care Team (Late st Contact Info) Description 10/16/2023 Telephone [facility] CHC ADULT DENTAL [address] [place] [address] Jacobo Osmin, DMD 505 [place] [address] medication Social History Tobacco Use Types Packs/Day Years [...] encounter Miscellaneous Notes * Telephone Encounter - Josefina Ragsdale - 10/16/2023 3:54 PM EST Sending message also to Dr. Long in the event that Dr. Centeno is not in office. Patint called in stating that jayy explained in appt that she is unable to take capsule because it gets stuck in throat. She stated she needs either tablets or liquids but capsules were sent. Can medication be re sent as tablets or liquid form DR documented in this encounter Plan of Treatment Upcoming Encounters Date Type Department Care Team (Late st Contact Info) Description 01/27/2025 10:00 AM EDT Office Visit [facility] ADULT DENTAL [address] [place] [address] Radha Arnoldshaylee [address] [place] [address] documented as of this encounter Visit Diagnoses Not on filedocumented in this encounter Additional Health Concerns Assessment Noted Time PHQ-9 Depression Total Score: 6 09/12/20 23 4:10 PM EST documented as of this encounter Care Teams Program Coordinator Relationship Specialty Start Date End Date Frankei Valencia MD [address] [place] [address] PCP - General Internal Medicine 04/03/20 Val Botello DDS [address] [place] [address] Resident Dental Clerk General Office 12/26/22 documented as of this encounter
--- OUTSIDE RECORDS SUMMARY | 2025-01-19 15:12 | XMS_ITS | Encounter Summary ---
Author Organization [employer] Address [address] [place] [address] Care Team Providers Care Prn Physical Therapist Name Role Phone Frankie Valencia MD Primary Care Prov ider Val Botello DDS Unavailable Unavailable Encounter Details Date Type Department Care Team (Late st Contact Info) Description 01/15/2025 Population Health Risk Score [facility] ([facility]) Department [address] [place] [phone] Provider, Population Health Generic Social History Tobacco Use Types Packs/Day Years [...] 01/27/2025 10:00 AM EDT Office Visit [facility] ADULT D[facility]AL [address] [place] [address] Kalli Arnold 505 [place] [address] documented as of this encounter Visit Diagnoses Not on filedocumented in this encounter Additional Health Concerns Assessment Noted Time PHQ-9 Depression Total Score: 6 09/12/20 23 4:10 PM EST documented as of this encounter Care Teams Prn Physical Therapist Relationship Specialty Start Date End Date Frankie Valencia MD [address] [place] [address] PCP - General Internal Medicine 04/03/20 Val Botello DDS [address] [place] [address] Resident Dental Acid Dumper 12/26/22 documented as of this encounter
--- OUTSIDE RECORDS SUMMARY | 2025-01-19 15:12 | XMS_ITS | Encounter Summary ---
Author Organization [employer] Address [address] [place] [address] Care Team Providers Care Celebrity Manager Name Role Phone Frankie Valencia MD Primary Care Prov ider Val Botello DDQuyen Unavailable Unavailable Encounter Details Date Type Department Care Team ([facility] Contact Info) Description 12/18/2022 Orders Only [facility] MED[facility] [address] [place] [address] Frankie Valencia MD [address] [place], [place] [phone] Iron deficiency anemia due to chronic blood loss Social History Tobacco Use Types Packs/Day Years Used Date Smoking Tobacco: Never Assessed Comments Unknown Sex and Gender Information Value Date Recorded Sex Assigned at Female 09/03/2022 10:23 AM EDT Legal Sex Female 10:23 AM EDT Gender Identity Female 09/03/2022 10:23 AM EDT Sexual Orientation Straight 09/03/2022 10 :23 AM EDT COVID-19 Exposure Response Date Recorded In the last 10 days, have yo u been in contact with someone who was confirmed or suspected to have Coronavirus/COVID-19? No / Unsure 12/12/2022 8:43 AM EST documented as of this encounter Plan of Treatment Upcoming Encounters Date Type Department Care Team ([facility] st Contact Info) Description 01/27/2025 10:00 AM EDT Office Visit [facility] ADULT DENTAL [address] [place] [address] Jose Arnoldzoraidaangy [address] [place] [address] documented as of this encounter Visit Diagnoses Diagnosis Iron deficiency anemia due to chronic blood loss Iron deficiency anemia secondary to blood loss (chronic) documented in this encounter Care Teams Celebrity Manager Relationship Specialty Start Date End Date Frankie Valencia MD [address] [place] [address] PCP - General Internal Medicine 04/03/20 Val Botello DDS [address] [place] [address] Resident Dental Chief Catalyst Operator 12/26/22 documented as of this encounter
--- OUTSIDE RECORDS SUMMARY | 2025-01-19 15:12 | XMS_ITS | Encounter Summary ---
Author Organization [employer] Address [address] [place] [address] Care Team Providers Care Air Cargo Ground Operations Supervisor Name Role Phone Frankie Valencia MD Primary Care Prov ider Val Botello DDS Unavailable Unavailable Encounter Details Date Type Department Care Team (Latest Contact Info) Description 01/18/2025 Travel Social History Tobacco Use Types Packs/Day Years [...] [facility] AD[facility] [address] [place] [address] Jose Arnoldanita [address] [place] [address] documented as of this encounter Visit Diagnoses Not on filedocumented in this encounter Additional Health Concerns Assessment Noted Time PHQ-9 Depression Total Score: 6 09/12/20 23 4:10 PM EST documented as of this encounter Care Teams Air Cargo Ground Operations Supervisor Relationship Specialty Start Date End Date Frankie Valencia MD [address] [place] [address] PCP - General Internal Medicine 04/03/20 Val Botello DDS [address] [place] [address] Resident Dental School Psychologist 12/26/22 documented as of this encounter
--- OUTSIDE RECORDS SUMMARY | 2025-01-19 15:12 | XMS_ITS | Encounter Summary ---
Author Organization [employer] Address [address] [place] [address] Care Team Providers Care Construction Rigger Name Role Phone Frankie Valencia MD Primary Care Prov ider Val Botello DDS Unavailable Unavailable Reason for Visit * Reason Onset Date Comments Appointment 12/19/2022 Patient called i n to cancel appt with Dr Centeno today at 1pm due to having a really bad headache She didn't think she could drive in. Patient wants to reschedule Encounter Details Date Type Department Care Team ([facility] Contact Info) Description 12/19/2022 Telephone [facility] ADULT DENTAL [address] [place] [address] Osmin Centeno, DMD [address] [place], [place] [phone] Appointment (Patient called in to cancel appt with Dr Centeno today at 1pm due to having a really bad headache She didn't think she could drive in. Patient wants to reschedule ) Social History Tobacco Use Types Packs/Day Years [...] AM EST documented as of this encounter Miscellaneous Notes * Telephone Encounter - Josefina Ragsdale - 12/19/2022 12:04 PM EST Patient called in to cancel appt with Dr Centeno today at 1pm due to having a really bad headache Shedidn't think she could drive in. Patient wants to reschedule documented in this encounter Plan of Treatment Upcoming Encounters Date Type Department Care Team (Late st Contact Info) Description 01/27/2025 10:00 AM EDT Office Visit [facility] ADULT DENT[facility] [address] [place] [address] Maurisio Arnoldet [address] [place] [address] documented as of this encounter Visit Diagnoses Not on filedocumented in this encounter Care Teams Construction Rigger Relationship Specialty Start Date End Date Frankie Valencia MD [address] [place] [address] PCP - General Internal Medicine 04/03/20 Val Botello DDS [address] [place] [address] Resident Dental Strand Galvanizer 12/26/22 documented as of this encounter
--- OUTSIDE RECORDS SUMMARY | 2025-01-19 15:12 | XMS_ITS | Encounter Summary ---
Author Organization [employer] Address [address] [place] [address] Care Team Providers Care Farm Or Ranch Animal Caretaker Name Role Phone Frankie Valencia MD Primary Care Prov ider Val Botello DDQuyen Unavailable Unavailable Encounter Details Date Type Department Care Team ([facility] Contact Info) Description 02/12/2024 Telephone [facility] CHC MED & PEDS [address] [place], [place] [phone] Frankie Valencia MD [address] [place] [address] Social History Tobacco Use Types Packs/Day Years [...] encounter Miscellaneous Notes * Telephone Encounter - Kathrin Macias RN - 02/14/2024 10:11 AM EDT [employer] messages regarding message below was forwarded to PCP for review. * Telephone Encounter - Luz Maria Wilson - 02/12/2024 2:01 PM EDT Tc from pt requesting to get an MRI to the left shoulder at [facility]. Was advised by a nurse at [facility] during xray to shoulder pt will need proof of not having any metal in the head. Pt states she has a tubein the ear but no metal. Pt also states metoprolol tartrate (Lopressor) 25 MG tablet makes her sleepy where she doesn't feel safe to drive but medication does help. Any questions, please contact pt at [phone] documented in this encounter Plan of Treatment Upcoming Encounters Date Type Department Care Team (Late st Contact Info) Description 01/27/2025 10:00 AM EDT Office Visit [facility] CHC ADULT DENTAL [address] [place] [address] Kalli Arnold [address] [place] [address] documented as of this encounter Visit Diagnoses Not on filedocumented in this encounter Additional Health Concerns Assessment Noted Time PHQ-9 Depression Total Score: 6 09/12/20 23 4:10 PM EST documented as of this encounter Care Teams Farm Or Ranch Animal Caretaker Relationship Specialty Start Date End Date Frankie Valencia MD [address] [place] [address] PCP - General Internal Medicine 04/03/20 Val Botello DDS [address] [place] [address] Resident Dental Chief Investment Officer 12/26/22 documented as of this encounter
--- OUTSIDE RECORDS SUMMARY | 2025-01-19 15:12 | XMS_ITS | Encounter Summary ---
Author Organization [employer] Address [address] [place] [address] Care Team Providers Care Pipeline Integrity Engineer Name Role Phone Frankie Valencia MD Primary Care Prov ider Val Botello DDQuyen Unavailable Unavailable Encounter Details Date Type Department Care Team ([facility] st Contact Info) Description 02/06/2024 Orders Only [facility] CHC MED & PEDS [address] [place], [place] [phone] Frankie Valencia MD [address] [place] [address] Social History Tobacco Use Types Packs/Day Years [...] the past 12 months, has t he [employer], gas, oil or water [employer] threatened to shut off services in your [...] Description 01/27/2025 10:00 AM EDT Office Visit [facility] ADULT DENTAL [address] [place] [address] Kalli Arnold [address] [place] [address] documented as of this encounter Procedures Procedure Name Priority Date/Time Associated Diagnosis Comments XR PRE MRI SCREENING Routine 03/05/2024 12:23 PM EDT documented in this encounter Results * XR PRE MRI SCREENING (03/05/2024 12:23 PM EDT) Anatomical Region Laterality Modality Abdomen Radiographic Kristy ging 03/05/2024 12:2 3 PM EDT Narrative 03/05/2024 12:39 PM EDT ? [facility] ?[address] ?[place] [address] ?XRay Report ? Signed ? Patient: Jia,Miguelito ?MR#: [id number] ? : 1975 ?Acct:[id number] ? Age/Sex: 48 / F ?ADM Date: 05/02/24 ? Loc: HO.MRI ? Attending Dr: Roly Nicholson MD ? Ordering Physician: Roly Nicholson MD ?? Date of Service: 03/05/24 ?? Procedure(s): XR pre mri screening ?? Accession Number(s): [id number] ? cc: Frankie Valencia MD; Roly Nicholson MD ? EXAMINATION: ?? PRE-MRI ORBIT ? CLINICAL INFORMATION: ?? Pre-MRI ? COMPARISON: ?? None available. ? TECHNIQUE: ?? 2 views ? FINDINGS: ?? No radiopaque foreign body overlies the orbits. Visualized paranasal ?? sinuses clear. No fracture or destructive process. ? XR/XR pre mri screening ?? IMPRESSION: ?? No radiopaque foreign bodies observed. Patient can proceed for MRI ?? evaluation. ? Dictated By: ?Kp Wilson MD ? Signed By: ?<Electronically signed by Kp Wilson MD in OV> ?03/05/24 1234 ? DD/ 1223 ? TD/TT: ? Storage Garage Attendant: ? Procedure Note Kirk, Image - 03/05/2024 [place] [address] XRay Report Signed Patient: Miguelito RoMR#: [id number] : 1975Acct:[id number] Age/Sex: 48 / FADM Date: 03/05/24 Loc: HO.MRI Attending Dr: Roly Nicholson MD Ordering Physician: Roly Nicholson MD Date of Service: 03/05/24 Procedure(s): XR pre mri screening Accession Number(s): [id number] cc: Frankie Valencia MD; Roly Nicholson MD EXAMINATION: PRE-MRI ORBIT CLINICAL INFORMATION: Pre-MRI COMPARISON: None available. TECHNIQUE: 2 views FINDINGS: No radiopaque foreign body overlies the orbits. Visualized paranasal sinuses clear. No fracture or destructive process. XR/XR pre mri screening IMPRESSION: No radiopaque foreign bodies observed. Patient can proceed for MRI evaluation. Dictated By: Kp Wilson MD Signed By: <Electronically signed by Kp Wilson MD in OV> 03/05/24 1234 DD/ 1223 TD/TT: Storage Garage Attendant: [facility] External Provider IMG XR PROCEDURES Final Result documented in this encounter Visit Diagnoses Not on filedocumented in this encounter Additional Health Concerns Assessment Noted Time PHQ-9 Depression Total Score: 6 09/12/20 23 4:10 PM EST documented as of this encounter Care Teams Pipeline Integrity Engineer Relationship Specialty Start Date End Date PollackFrankie Hernandez MD [address] [place], [place] [phone] PCP - General Internal Medicine 04/03/20 Val Btoello DDS [address] [place] [address] Resident Dental Salesperson Toy Trains And Accessories 12/26/22 documented as of this encounter
--- OUTSIDE RECORDS SUMMARY | 2025-01-19 15:12 | XMS_ITS | Clinical Summary ---
Author Organization [employer] Address [address] [place] [address] Care Team Providers Care Delivery Driver/Customer Service Name Role Phone Frankie Valencia MD Primary Care Prov ider Val Botello DDQuyen Unavailable Unavailable Allergies Active Allergy Reactions Criticality Noted Date Comments Acetaminophen Anaphylaxis High 04/14/2018 Naproxen Swelling 11/02/2022 Amoxicillin-Pot Clavulanate 11/06/2023 Codeine Swelling 11/02/2022 Guaifenesin 02/23/2023 Other reaction(s): Not Indicated Hydrocodone Anaphylaxis High 11/21/2016 Hydrocodone-Acetaminophen Other,Swelling 2022 Other 11/06/2023 Oseltamivir Swelling 11/02/2022 Azithromycin Swelling 11/02/2022 Medications * This document contains information received from the source organization and may not represent a complete record from that organization. aspirin 325 MG tablet 2 Active Azelastine HCl 137 MCG/SPRAY solution SPRAY 2 SPRAYS INTO EACH NOSTRIL TWICE A DAY 2 Active cetirizine (ZyrTEC) 10 MG tablet Take 1 tablet by mouth at bed time. Active levocetirizine (Xyzal Allergy 24HR) 5 MG tablet Active sodium chloride (Boaz) 0.65 % nasal spray 1-2 spray on each nostril every 2-3 hours as needed for nasal congestion 2 Active valACYclovir (Valtrex) 500 MG tablet Take 500 mg by mouth in the morning. 2 Active omeprazole (PriLOSEC) 2 mg/mL solution Take 5 mL (10 mg) by mouth before breakfast. 500 mL 3 3 Active metoprolol tartrate (Lopressor) 25 MG tablet TAKE 1 TAB DAILY NEEDED FOR PALPITATIONS,MA Y TAKE ADDITIONAL TAB IF PALPITATION PERSIST,MAX 2/DAY 3 Active pseudoephedrine (Sudafed) 30 MG tabletIndication s:Cough in adult Take 1 tablet (30 mg) by mouth every 4 (four) hours if needed for congestion for up to 10 days. 30 tablet 3 Active SUMAtriptan (Imitrex) 50 MG tablet TAKE 1 TABLET ONCE NEEDED FOR MIGRAINE, MAY REPEAT ONCE IN 2 HOURS IF NO RELIEF, MAX 2/24HRS 9 tablet 4 Active terbinafine (LamISIL AT) 1 % cream Apply topically 2 times daily. 42 g 11 4 Active ibuprofen 800 MG tabletIndication s:Multiple joint pain TAKE 1 TABLET BY MOUTH THREE TIMES A DAY 90 tablet 4 Active methocarbamol (Robaxin) 750 MG tabletIndication s:Left hip pain,Greater trochanteric pain syndrome,Muscle spasm Take 1 tablet (750 mg) by mouth 4 times daily for 10 days. 40 tablet 4 Active hydrOXYzine HCl (Atarax) 25 MG tablet TAKE 1 TABLET BY MOUTH EVERY 6 HOURS NEEDED FOR ANXIETY 120 tablet 1 4 Active ferrous sulfate 325 (65 Fe) MG tabletIndication s:Iron deficiency anemia due to chronic blood loss TAKE 1 TABLET BY MOUTH EVERY DAY IN THE MORNING 90 tablet 1 4 Active buPROPion XL (Wellbutrin XL) 150 MG 24 hr tablet Take 150 mg by mouth in the morning. 4 Active albuterol (Ventolin HFA) 108 (90 Base) MCG/ACT inhaler TAKE 2 PUFFS BY MOUTH EVERY 4 TO 6 HOURS NEEDED 18 g 3 5 Active Active Problems Problem Noted Date Diagnosed Date Rhinosinusitis 09/07/2024 Assessment & Plan (09/08/2024 9:36 AM EST): Ddx rhinosinusitis, multiple med allergies, sent antibiotics, recommended supportive care. Relevant Medication Dextromethorphan (Delsym) 30 mg / 5 ml liquid Doxycycline (Vibra-Tabs) 100 mg tablet Left lower quadrant abdominal pain 03/09/2024 Assessment & Plan (03/09/2024 6:13 PM EDT): -advised to continue hyoscyamine as needed -monitor for foods or events that cause symptoms -follow-up as needed Palpitation 03/09/2024 Assessment & Plan (08/20/2024 4:17 PM EDT): Patient refers metoprolol makes her drowsy, told to take 1/2 of pill, told to follow up with therapist/psych, symptoms are more related to stress and anxiety Assessment & Plan (03/09/2024 6:30 PM EDT): -patient advised to call parks and recreation manager to discuss her metoprolol side effect as all medications in this drug class may have the same effects -trigger avoidance discussed Cough 11/06/2023 Assessment & Plan (09/07/2024 3:34 PM EST): Negative for Covid. Assessment & Plan (11/06/2023 2:51 PM EST): Likely URI, rapid testing negative. Will send out to PCR. Recommended supportive care and will send delonte honeycutt, patient with multiple med allergies. Mild depression 09/12/2023 Moderate anxiety 08/06/2023 Assessment & Plan (09/12/2023 4:28 PM EST): Assessment: Patient presents with anxiety and depressive symptoms. No risk for self-harm, SI, HI. Reason for visit was to assess symptoms and provide support and resources to patient. Symptoms are present in the context of stress relationship with family members, financial struggle. .Provided space for Johnson to vent and psychoeducation around coping skills to manage anxiety and depressive sxs and recommended OP services, she agreed to Ind. Therapy, declined Medication Management at this time. At this time Miguelito Ro meets criteria for Visit Diagnoses: Problem List Items Addressed This Visit Other Moderate anxiety Mild depression Patient ready to address current needs Yes Strengths include Johnson is in action stage of change and her motivation will serve at treatment engagement. PLAN: 1. Follow up with [facility]: Recommended for follow-up: 10/03/23 at 3pm 2. Patient goal is engage in MH services 3. Behavioral Recommendations a. Ind. Therapy, referral will be submitted b. Use of coping skills provided c. [facility] contact number for support Assessment & Plan (08/06/2023 8:36 PM EDT): Patient refers having episode of palpitatins, anxiety, she is asking for work hours reduction, will send note Annual physical exam 07/30/2023 Assessment & Plan (07/30/2023 8:46 PM EDT): Physical examination was unremarkable Pending colon cancer screening and mammogram New labs ordered Rectal bleeding 07/23/2023 Assessment & Plan (07/23/2023 2:17 PM EDT): Patient refers having episode of BRRB, will place gi referral, oriented patient to avoid missing appointment. Functional diarrhea 07/23/2023 Assessment & Plan (07/23/2023 2:17 PM EDT): Resolved, most likely related to antibiotics, no fever/chills, she can go back to work Muscle spasm 07/09/2023 Assessment & Plan (07/09/2023 3:54 PM EDT): Told to apply cold packs, may apply biofreeze/icyhot/menthol based ointment, stretch 1-2 times a day. If pain not improving call back for muscle relaxant prescription. 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 Encounters Date Type Department Care Team Description 01/18/2025 11:30 AM EDT Office Visit [facility] [address] [place] [address] Frankie Valencia MD Left foot pain (Primary Dx) 01/18/2025 Travel 01/15/2025 Population Health Risk Score [facility] ([facility]) Department [address] [phone] Provider, Population Health Generic 11/16/2024 3:30 PM EST Office Visit [facility] [address] [place] [address] Frankie Valencia MD Acute pain of left knee (Primary Dx); Acute pain of left shoulder 11/16/2024 Travel 11/12/2024 Telephone [facility] [address] [place] [address] Frankie Valencia MD 11/09/2024 Refill [facility] [address] [place] [address] Frankie Valencia MD from Last 3 Months Immunizations Name Administration Dates Next Due Hep B, Unspecified 09/14/2014 Hep B, adult 02/21/2015,08/04/2014 Influenza injectable quadriv alent IIV4 with preservative 08/25/2019 Influenza injectable quadriv alent preservative free 07/16/2020,08/14/2017 Influenza, High Dose Seasona l, Preservative Free 10/13/2018 Influenza, IIV3, injectable 08/28/2016, 4 Pneumococcal Conjugate PCV 13 10/19/2015 Pneumococcal Conjugate PCV 20 10/17/2023 Rabies Immune Globulin 06/30/2023 Rabies, IM Diploid Cell Culture 07/14/20 23,07/07/2023,07/03/2023,2022 Tdap 06/30/2023,05/13/2019,09/05/2016 Social History Tobacco Use Types Packs/Day Years Used Date Smoking Tobacco: Never Passive Smoke Exposure: Never Smokeless Tobacco: Never Tobacco Cessation:Counseling Given: Not Answered Depression Answer Date Recorded Patient Health Questionnaire-9 [...] Orientation Straight 09/03/2022 10 :23 AM EDT Last Filed Vital Signs Vital Sign Reading Time Taken Comments Blood Pressure 138/84 01/18/2025 11:25 AM EDT Pulse 72 01/18/2025 11:25 AM EDT Temperature 36.6 ??C (97.8 ??F) 01/18/2025 11:25 AM E DT Respiratory Rate 20 01/18/2025 11:25 AM EDT Oxygen Saturation 98% 09/07/2024 2:58 PM EST Inhaled Oxygen Concentration - - Weight 95.9 kg (211 lb 6.4 oz) 01/18/2025 11:25 AM EDT Height 160 cm (5' 3 ) 01/18/2025 11:25 AM EDT Body Mass Index 37.45 01/18/2025 11:25 AM EDT Plan of Treatment Upcoming Encounters Date Type Department Care Team (Late st Contact Info) Description 01/27/2025 10:00 AM EDT Office Visit [facility] [address] [place] [address] Radha Arnoldanpreet [address] [place] [address] Health Maintenance Due Date Last Done Comments CT Colonography 1975 Colonoscopy 1975 Dental Prophylaxis 1975 FIT 1975 FOBT 1975 HIV Screening 1975 Sigmoidoscopy 1975 Alcohol/Substance Use Screening 1986 Family Planning (PISQ) 1989 Dental Oral Exam 07/14/2017 01/10/2017 Dental X-Ray: Full Mouth 01/12/2020 01/10/2017 Zoster Vaccines (2 of 2) 05/21/2024 03/26/2024 SDOH Screening 06/07/2024 06/07/2023 COVID-19 Vaccine ( season) 2024 11/01/2021, 2021, 03/03/2021 Influenza Vaccine (#1) 2024 , 08/25/2019, 10/13/2018, Additional history exists Dental X-Ray: Bitewings 08/21/2024 08/20/20 23, 11/02/2022, 01/10/2017 Depression Screening 09/12/2024 09/12/2023, 09/12/20 Tobacco Screening 08/10/2025 08/10/2024 Pap Smear 11/22/2025 11/22/2022 Colorectal Cancer Screening 08/06/2026 FIT DNA/Cologuard 08/06/2026 08/06/2023 Mammogram 08/07/2026 08/07/2024, 01/2023, 07/16/2022 Cervical Cancer Screening 11/22/2027 HPV/Cotest 11/22/2027 11/22/2022, 08/25/2019 Lipid Panel 07/19/2028 07/19/2023 DTaP/Tdap/Td Vaccines (4 - Td or Tdap) 06/30/2033 06/30/2023, 05/13/2019, 09/05/2016 RSV Patients and Patients Aged 60 years or older (1 - 1-dose 75+ series) 2049 Hepatitis B Vaccines Completed 02/21/2015, 09/14/2014, 08/04/2014 Hepatitis C Screening Completed 07/19/2023 Pneumococcal Vaccine: 50+ Years Completed 10/17/2023, 10/19/2015 HIB Vaccines Aged Out No longer eligi ble based on patient's age to complete this topic HPV Vaccines Aged Out No longer eligi ble based on patient's age to complete this topic Hepatitis A Vaccines Aged Out No long er eligible based on patient's age to complete this topic IPV Vaccines Aged Out No longer eligi ble based on patient's age to complete this topic Meningococcal Vaccine Aged Out No kennedy ashtyn eligible based on patient's age to complete this topic RSV under 20 months Aged Out No longe r eligible based on patient's age to complete this topic Rotavirus Vaccines Aged Out No longer eligible based on patient's age to complete this topic Procedures Procedure Name Priority Date/Time Associated Diagnosis Comments BI MAMMOGRAM SCREENING TOMOSYNTHESIS BILATERAL Routine 08/07/2024 11:20 AM EDT BITEWING - SINGLE RADIOGRAPHIC IMAGE Routine 08/20/2023 11:30 AM EDT LAB COLOGUARD?? COLON CANCER SCREEN Routine 08/06/2023 10:00 AM EDT Screening for colon cancer HEPATITIS C AB W/REFL TO HCV RNA, QN, PCR Routine 07/19/2023 12:54 PM EDT Annual physical exam LIPID PANEL, STANDARD Routine 07/19/2023 12:54 PM EDT Annual physical exam HPV MRNA E6/E7 REFLEX TO HPV 16, 18/45 Routine 11/22/2022 3:13 PM EST PAP SMEAR Routine 11/22/2022 3:13 PM EST from Last 3 Months or Most Recently Relevant to Health Maintenance Results * BI Mammogram Screening Tomosynthesis Bilateral (08/07/2024 11:20 AM EDT) Anatomical Region Laterality Modality Breast Bilateral Mammography 08/07/2024 11:2 0 AM EDT Narrative 08/19/2024 1:25 PM EDT ? [facility] ? [address] ?[place] [address] ? Mammography Report ? Signed ? Patient: Miguelito Ro ?MR#: [id number] ? : 1975 ?Acct:[id number] ? Age/Sex: 49 / F ?ADM Date: 08/07/24 ? Loc: HO.MAMMO ? Attending Dr: Frankie yL MD ? Ordering Physician: Frankie Valencia MD ?Res ?? ults: 1Negative ? Date of Service: 08/07/24 ?Follow Up: 1 Year From Orig ?? inal Mammogram ? Procedure(s): MM tomosynthesis screening BI ?? Accession Number(s): [id number] ? cc: Zaira Louise MD; Frankie Valencia MD ? EXAMINATION: ?? MM SCREENING DIGITAL BREAST TOMOSYNTHESIS, BILATERAL ? CLINICAL INFORMATION: ? Screening. Asymptomatic. ? COMPARISON: ?? Mammography: Comparison is made with available priors ? TECHNIQUE: ?? Digital breast mammography with tomosynthesis is performed in both the ?? craniocaudal and mediolateral oblique views along with computer-aided ?? detection (CAD). ? FINDINGS: ?? There are scattered areas of fibroglandular density (ACR BI-RADS breast ?? composition Category b). ? There are no significant masses, abnormal calcifications, or other ?? abnormalities. ? MM/MM tomosynthesis screening BI ?? IMPRESSION: ?? No mammographic evidence of malignancy. ? ASSESSMENT: ? BI-RADS BI-RADS 1 - Negative ? RECOMMENDATION: ?? Routine annual mammography screening. ? 1 year F/U ? This examination should not preclude the clinical evaluation of a ?? suspicious palpable abnormality. ? This patient's information was entered into a reminder system with a ?? target due date for their next mammogram. ? Electronically signed by: ??Hayley Costa DO ??08/19/2024 01:22 PM EDT ? Dictated By: ?Hayley Costa DO ? Signed By: ?<Electronically signed by Hayley Tyminski, DO in OV> ? 08/19/24 1322 ? DD/ 1120 ? TD/TT: 08/07/24 1135 ? Tech Ed Teacher: ? Procedure Note Sybil Bradley - 08/19/2024 [facility] [address] [place] [address] [address] [place], [place] [address] Mammography Report Signed Patient: Lawrence Ro#: [id number] : 1975Acct:[id number] Age/Sex: 49 / FADM Date: 08/07/24 Loc: HO.MAMMO Attending Dr: Frankie Ly MD Ordering Physician: Frankie Valencia ults: 1Negative Date of Service: 08/07/24Follow Up: 1 Year From Orig inal Mammogram Procedure(s): MM tomosynthesis screening BI Accession Number(s): [id number] cc: Zaira Louise MD; Frankie Valencia MD EXAMINATION: MM SCREENING DIGITAL BREAST TOMOSYNTHESIS, BILATERAL CLINICAL INFORMATION: Screening. Asymptomatic. COMPARISON: Mammography: Comparison is made with available priors TECHNIQUE: Digital breast mammography with tomosynthesis is performed in both the craniocaudal and mediolateral oblique views along with computer-aided detection (CAD). FINDINGS: There are scattered areas of fibroglandular density (ACR BI-RADS breast composition Category b). There are no significant masses, abnormal calcifications, or other abnormalities. MM/MM tomosynthesis screening BI IMPRESSION: No mammographic evidence of malignancy. ASSESSMENT: BI-RADS BI-RADS 1 - Negative RECOMMENDATION: Routine annual mammography screening. 1 year F/U This examination should not preclude the clinical evaluation of a suspicious palpable abnormality. This patient's information was entered into a reminder system with a target due date for their next mammogram. Electronically signed by: Hayley Costa DO 08/19/2024 01:22 PM EDT Dictated By: Hayley Costa DO Signed By: <Electronically signed by Hayley Costa DO in OV> 08/19/24 1322 DD/ 1120 TD/TT: 08/07/24 1135 Tech Ed Teacher: Frankie Ly MD IMG BI PROCEDURES Final Result * Cologuard?? colon cancer screening (08/06/2023 10:00 AM EDT) Cologuard Result Negative Negative 08/14/20 4:37 AM EDT [employer] (CLIA #:[id number]) Comment: NEGATIVE TEST RESULT. A negative Cologuard [...] (Kiran Chavira al, N Engl J Med 2014;370(14):1286- 1297) The normal value (reference range) for this assay is negative. COLOGUARD RE-SCREENING RECOMMENDATION: Periodic colorectal cancer screening is an important part of preventive healthcare for asymptomatic individuals at average risk for colorectal cancer. ??Following a negative Cologuard result, the [place] Cancer Society and U.S. Multi-Society Task Force screening guidelines recommend a Cologuard re-screening interval of 3 years. References: [place] [employer] Guideline for Colorectal Cancer Screening: https://www.cancer.org/cancer/ounqj-skpvxt-vdvwwa/fooaljtsx-spqxngjla-wfxhplj/ac s-rec ommendations.html.; Kike DK, Nereyda PEREZ, James LermaK, Colorectal Cancer Screening: Recommendations for Physicians and Patients from the U.S. Multi-Society Task Force on Colorectal Cancer Screening , Am J Gastroenterology 2017; 112:4356-3334. TEST DESCRIPTION: Composite algorithmic analysis of stool [...] were screened with both Cologuard and colonoscopy. (Imperiale T. et al, N Engl J Med 2014;370(14):3958-4345.) Cologuard may produce a false negative or false positive result (no colorectal cancer or precancerous polyp present at colonoscopy follow up). A negative Cologuard test result does not guarantee the absence of CRC or advanced adenoma (pre-cancer). The current Cologuard screening interval is every 3 years. ([place] Cancer Society and U.S. Multi-Society Task Force). Cologuard performance data in a 10,000 patient pivotal study using colonoscopy as the reference method can be accessed at the following location: www.[employer]/results. Additional description of the Cologuard test process, warnings and precautions can be found at www.cologuard.[employer]. Stool specimen (specimen) 08/06/2023 10:00 AM EDT 08/07/2023 11:48 PM EDT Frankie Ly MD LAB MOLECULAR DIAG NOSTICS ORDERABLES Final Result Performing Organization Address City/[facility]/ZIP Co de Phone Number [employer] (CLIA #:[id number]) [place] [address], * Hepatitis C Antibody with Reflex to HCV, RNA, Quantitative, Real-Time PCR (07/19/2023 12:54 PM EDT) Hepatitis C Antibody Nonreactive Nonreactive [facility] Comment:Antibodies to HCV no t detected; does not exclude early acuteHCV infection. Blood Venous blood specimen / Unknown 07/19/2023 12:54 PM EDT 07/19/2023 2:59 PM EDT Frankie Ly MD LAB BLOOD ORDERABL ES Final Result Performing Organization Address [facility]/ZIP Co de Phone Number [facility] [address] [place] [phone] * (ABNORMAL) Lipid Panel, Standard (07/19/2023 12:54 PM EDT) Triglycerides 142 <150 mg/dL [facility] Comment:Desirable Triglyceri de: less than 150 mg/dLBorderline High Triglyceride 150-199 mg/dLHigh Triglyceride: 200-499 mg/dLVery High Triglyceride: greater than or equal to 5OO mg/dL Cholesterol 202(H) <200 mg/dL [facility] Comment:Desirable Cholestero l: less than 200 mg/dLBorderline High Cholesterol: 200-239 mg/dLHigh Cholesterol: greater than 239 mg/dL LDL Cholesterol Calculated 124(H) <100 mg/dL [facility] Comment:Desirable LDL: less than 100 mg/dLNear Optimal/Above Optimal LDL: 110- 129 mg/dLBorderline High LDL: 130-159 mg/dLHigh LDL: 160-189 mg/dLVery High LDL: greater than or equal to 190 mg/dL HDL Cholesterol 50 >40 mg/dL [facility] Comment:Desirable HDL: grea ter than 40 mg/dL Note: This HDL assay may give artificially low results in patients with liver disease. Blood Venous blood specimen / Unknown 07/19/2023 12:54 PM EDT 07/19/2023 2:59 PM EDT Frankie Ly MD LAB BLOOD ORDERABL ES Final Result [facility] [address] [place] [phone] * HPV mRNA E6/E7 w/Reflex to HPV Genotypes 16, 18/45 (11/22/2022 3:13 PM EST) HPV nRNA E6/E7 Not Detected Not Detected [facility] Comment:Methodology: Transcr iption-Mediated AmplificationThis assay detects E6/E7 viral messenger RNA (mRNA) from 14high-risk HPV types (16,18,31,33,35,39,45,51,52,56,58,59,66,68).Cervical sources are required for HPV testing.If a vaginal source from a patient who has had atotal hysterectomy with removal of cervix wassubmitted, please contact the testing laboratoryfor alternative testing options.For additional information, please refer tohttp://education.[employer]/faq/UZF137b6(This link if provided for information/educational purposes only.)THIS TEST WAS PERFORMED AT:[employer] [address] ([address])[place] [address]PTPRRCHRISTIAN MOREL MD HPV mRNA E6/E7 TNP [facility] HPV 16 RNA TNP [facility] HPV 18/45 RNA TNP [facility] 11/22/2022 3:13 PM EST 11/23/2022 10:00 AM EST [facility] External Provider LAB CYT OLOGY ORDERABLES Final Result Performing Organization Address City/State/[facility] Co de Phone Number [facility] [address] [place] [phone] * Pap Smear (11/22/2022 3:13 PM EST) 11/22/2022 3:13 PM EST 11/23/2022 10:00 AM EST Narrative [facility] - 12/03/2022 3:03 PM EST ----- ------- Name: Miguelito Ro ? Age/Sex: 47/F ? : 1975 Unit#: [id number] ?? Attend Dr: Veda Flores CNM ?Re11/22/22 ?Status: DEP REF ? Location: HO.LNP ?Disch: ? ----- ------- SPEC : [id number] ? RECD: 11/23/22-999 ? STATUS: ??SOUT ? REQ NUM: [id number] ? LIDIA: 11/22/22-1512 ? SUBM DR: Veda Flores CNM ? ENTERED: ??11/23/22-0 ?SP TYPE: Pap Smr ?OTHR DR: Frankie Valencia MD ORDERED: ??Pap Smear ? Interpretation ?? Satisfactory for evaluation. ?? Negative for intraepithelial lesion or malignancy. ?? Coccobacilli consistent with shift in vaginal rd. ? HPV mRNA E6/E7: ?NOT DETECTED ? This assay detects E6/E7 viral messenger RNA (mRNA) from 14 high-risk HPV types (16, 18, ?? 31, 33, 35, 39, 45, 51, 52, 56, 58, 59, 66, 68) ? HPV testing performed by [facility], [place], [place]. ??See reference laboratory ?? portion of the EMR for entire report. ?Clinical Information LMP: 11/01/22 Previous PAP test: Yrs, WNL ? Material Received ?? ThinPrep-Cervical Copies To: ?? Frankie Valencia MD ?? [address] ?? [place] [address] ? Veda Flores CNM ?? [address] [facility] [address] [facility] [address] ?? [place] [address] ?? [phone] ----- ------- Signed (signature on file) Di Linares 12/03/22 1503 ? ----- ------- ? END OF REPORT ? us [facility] External Provider LAB CYT OLOGY ORDERABLES Final Result [facility] [address] [place] [phone] [phone] from Last 3 Months or Most Recently Relevant to Health Maintenance Insurance [address] [address] [facility] C[address] [address] [facility] ADULT [address] [address] [place] [address] [address] [place] [address] [address] [address] Care Teams Delivery Driver/Customer Service Relationship Specialty Start Date End Date Frankie Valencia MD [address] [place] [address] PCP - General Internal Medicine 04/03/20 Val Botello DDS [address] [place] [address] Resident Dental Battery Vent Plug Inserter 12/26/22
--- OUTSIDE RECORDS SUMMARY | 2025-01-19 15:12 | XMS_ITS | Encounter Summary ---
Author Organization [employer] Address [address] [facility] 7t [place] [address] Care Team Providers Care Shipping Associate Name Role Phone Frankie Valencia MD Primary Care Prov ider Val Botello DDS Unavailable Unavailable Reason for Visit * Reason Onset Date Comments Other 07/22/2023 Care Coordination 07/22/2023 C3CM F/U Call Encounter Details Date Type Department Care Team ([facility] Contact Info) Description 07/22/2023 Telephone [facility] CHC MED & PEDS [address] [place] [address] Frankie Valencia MD [address] [place] [address] Other; Care Coordination (C3CM F/U Call) Social History Tobacco Use Types Packs/Day Years [...] encounter Miscellaneous Notes * Telephone Encounter - Marylou Long RN - 07/23/2023 11:37 AM EDT DANIELA Long RN placed outbound call to patient via ASL. Patient's name, and address confirmed. Patient states is doing well with no recent illnesses or emergency room visits. Pt has a televisit appointment with PCP over the phone. States she will like to inform PCP that if her insurance will cover for cologuard, then she will like PCP to refer her to a different GI provider since [facility] not accept her for colonoscopy due to frequent cancellation/ no shows. No further questions or concerns. CM reinforced direct contact information or CHW for any additional questions or concerns. Education provided on [facility] located in [facility] of [facility]. Patient provided with after-hours line for [facility], , which offer night time triage service and option to transfer to hat conditioner provider if needed. Patient verbalizes understanding, and able to repeat back to writer producer. A follow up call will be placed within 10 days, patientagrees with plan. Please see message below as FYI * Telephone Encounter - Vielka Pruitt - 07/22/2023 2:35 PM EDT Luis Gonzalezssica at [facility] GI calling to inform PCP that patient has cancelled and reschedule her colonoscopy several times and they're advising for PCP to order patient a cologuard test instead. documented in this encounter Plan of Treatment Upcoming Encounters Date Type Department Care Team (Late st Contact Info) Description 01/27/2025 10:00 AM EDT Office Visit [facility] CHC ADULT DENTAL [address] [place] [address] Radha Arnoldshaylee [address] [place] [address] documented as of this encounter Visit Diagnoses Not on filedocumented in this encounter Care Teams Shipping Associate Relationship Specialty Start Date End Date Frankie Valencia MD [address] [place] [address] PCP - General Internal Medicine 04/03/20 Val Botello DDS [address] [place] [address] Resident Dental Silver Brazer 12/26/22 documented as of this encounter
--- OUTSIDE RECORDS SUMMARY | 2025-01-19 15:12 | XMS_ITS | Encounter Summary ---
Author Organization [employer] Address [address] 7[address] [place] [address] Care Team Providers Care Mixing Pan Tender Name Role Phone Frankie Valencia MD Primary Care Prov ider Val Botello DDS Unavailable Unavailable Encounter Details Date Type Department Care Team (Late Contact Info) Description 06/25/2023 Orders Only [facility] MED & PEDS [address] [place] [address] Frankie Valencia MD [address] [place] [address] Social History Tobacco Use Types Packs/Day Years [...] Description 01/27/2025 10:00 AM EDT Office Visit [facility] ADULT DENTAL [address] [place] [address] Kalli Arnold 505 [place] [address] documented as of this encounter Visit Diagnoses Not on filedocumented in this encounter Care Teams Mixing Pan Tender Relationship Specialty Start Date End Date Frankie Valencia MD [address] [place] [address] PCP - General Internal Medicine 04/03/20 Val Botello DDS [address] [place] [address] Resident Dental Electrical Subcontractor 12/26/22 documented as of this encounter
--- OUTSIDE RECORDS SUMMARY | 2025-01-19 15:12 | XMS_ITS | Encounter Summary ---
Author Organization [employer] Address [address] [facility] [address] 7[address] [place] [address] Care Team Providers Care Dip Lube Operator Name Role Phone Frankie Valencia MD Primary Care Prov ider Val Botello DDQuyen Unavailable Unavailable Reason for Visit * Reason Onset Date Comments change of tx 08/22/2023 Encounter Details Date Type Department Care Team (Late st Contact Info) Description 08/22/2023 Telephone C [facility] ADULT DENTAL [address] [place] [address] Silvana Pacheco BDS change of tx Social History Tobacco Use Types Packs/Day Years Used Date Smoking Tobacco: Never Passive Smoke Exposure: Never Smokeless Tobacco: Never Housing Stability Answer Date Recorded What is [...] off services in your home? Yes 08/12/2023 Comments Unknown Sex and Gender Information Value Date Recorded Sex Assigned at Female 09/03/2022 10:23 AM EDT Legal Sex Female 10:23 AM EDT Gender Identity Female 09/03/2022 10:23 AM EDT Sexual Orientation Straight 09/03/2022 10 :23 AM EDT documented as of this encounter Miscellaneous Notes * Telephone Encounter - Josefina Ragsdale - 08/22/2023 9:49 AM EDT Patient called in stating that she had some conversations with people she knows and has decided that instead of doing the RCT she would like to have the tooth extracted. Can treatment plan be changedand appt modified DR documented in this encounter Plan of Treatment Upcoming Encounters Date Type Department Care Team (Late st Contact Info) Description 01/27/2025 10:00 AM EDT Office Visit [facility] ADULT DENTAL 505 [place] [address] Jose Arnoldzoraidaangy 505 [place] [address] documented as of this encounter Visit Diagnoses Not on filedocumented in this encounter Care Teams Dip Lube Operator Relationship Specialty Start Date End Date Frankie Valencia MD [address] [place] [address] PCP - General Internal Medicine 04/03/20 Val Botello DDS [address] [place] [address] Resident Dental Supervisor Long Goods 12/26/22 documented as of this encounter
--- OUTSIDE RECORDS SUMMARY | 2025-01-19 15:12 | XMS_ITS | Encounter Summary ---
Author Organization [employer] Address [address] [facility] [address] [place] [address] Care Team Providers Care Handle Sewer Name Role Phone Frankie Valencia MD Primary Care Prov ider Val Botello DDS Unavailable Unavailable Reason for Visit * Reason Comments Med Refill Encounter Details Date Type Department Care Team (Late st Contact Info) Description 07/02/2023 Refill [facility] MED & PEDS [address] [place] [address] Marlen Joyce MD Social History Tobacco Use Types Packs/Day Years [...] Description 01/27/2025 10:00 AM EDT Office Visit [facility] ADULT DENTAL 505 [place], [place] [phone] Kalli Arnold 505 [place] [address] documented as of this encounter Visit Diagnoses Not on filedocumented in this encounter Care Teams Handle Sewer Relationship Specialty Start Date End Date Frankie Valencia MD [address] [place] [address] PCP - General Internal Medicine 04/03/20 Val Botello DDS [address] [place] [address] Resident Dental Vice President Sales 12/26/22 documented as of this encounter
--- OUTSIDE RECORDS SUMMARY | 2025-01-19 15:12 | XMS_ITS | Encounter Summary ---
Author Organization [employer] Address [address] 7[address] [place] [address] Care Team Providers Care School Laboratory Technician Name Role Phone Frankie Valencia MD Primary Care Prov ider Val Botello DDS Unavailable Unavailable Encounter Details Date Type Department Care Team (Late st Contact Info) Description 11/08/2023 Telephone C [facility] MED & PEDS [address] [place], [place] [phone] Enid Johnson, RN [address] [place] [address] Social History Tobacco Use Types Packs/Day Years [...] encounter Miscellaneous Notes * Telephone Encounter - Enid Johnson RN - 11/08/2023 5:11 PM EST Called pt to triage using the seismic interpreter line, #[id number]. Unable to reach, left message to call back on Saturday. documented in this encounter Plan of Treatment Upcoming Encounters Date Type Department Care Team (Late st Contact Info) Description 01/27/2025 10:00 AM EDT Office Visit [facility] ADULT DENTAL 505 [place] [address] Kalli Arnold [address] [place] [address] documented as of this encounter Visit Diagnoses Not on filedocumented in this encounter Additional Health Concerns Assessment Noted Time PHQ-9 Depression Total Score: 6 09/12/20 23 4:10 PM EST documented as of this encounter Care Teams School Laboratory Technician Relationship Specialty Start Date End Date Frankie Valencia MD [address] [place] [address] PCP - General Internal Medicine 04/03/20 Val Botello DDS [address] [place] [phone] Resident Dental Fitness Instructor 12/26/22 documented as of this encounter
--- OUTSIDE RECORDS SUMMARY | 2025-01-19 15:12 | XMS_ITS | Encounter Summary ---
Author Organization [employer] Address [address] 7[address] [place] [address] Care Team Providers Care Tax Services Specialist Name Role Phone Frankie Valencia MD Primary Care Prov ider Val Botello DDS Unavailable Unavailable Encounter Details Date Type Department Care Team (Late Contact Info) Description 11/07/2022 Orders Only [facility] CHC MED & PEDS [address] [place], [place] [phone] Milla Vance, RN 505 [place] [address] Social History Tobacco Use Types Packs/Day Years [...] suspected to have Coronavirus/COVID-19? No / Unsure 11/02/2022 12:25 PM EST documented as of this encounter Plan of Treatment Upcoming Encounters Date Type Department Care Team (Late Contact Info) Description 01/27/2025 10:00 AM EDT Office Visit [facility] ADULT DENTAL [address] [place] [address] Jose Arnoldpreet [address] [place] [address] documented as of this encounter Procedures Procedure Name Priority Date/Time Associated Diagnosis Comments HPV MRNA E6/E7 REFLEX TO HPV 16, 18/45 Routine 11/22/2022 3:13 PM EST PAP SMEAR Routine 11/22/2022 3:13 PM EST SURESWAB(R) ADVANCED VAGINITIS, TMA Routine 11/22/2022 1:54 PM EST CHLAMYDIA/N. GONORRHOEAE RNA, TMA, UROGENITAL Routine 11/22/2022 1:54 PM EST documented in this encounter Results * Pap Smear (11/22/2022 3:13 PM EST) 11/22/2022 3:13 PM EST 11/23/2022 10:00 AM EST [facility] - 12/03/2022 3:03 PM EST ----- ------- Name: Miguelito Ro ? Age/Sex: 47/F ? : 1975 Unit#: [id number] ?? Attend Dr: Veda Flores CNM ?Re11/22/22 ?Status: DEP REF ? Location: HO.LNP ?Disch: ? ----- ------- SPEC : [id number] ? RECD: 11/23/22-999 ? STATUS: ??SOUT ? REQ NUM: [id number] ? LIDIA: 11/22/22-425 ? SUBM DR: Veda Flores CNM ? ENTERED: ??11/23/220 ?SP TYPE: Pap Smr ?OTHR DR: Frankie [...] 66, 68) ? HPV testing performed by [facility], [place], [place]. ??See reference laboratory ?? portion of the EMR for entire report. ?Clinical Information LMP: 11/01/22 Previous PAP test: Yrs, WNL ? Material Received ?? ThinPrep-Cervical Copies To: ?? Frankie Valencia MD ?? [address] ?? [place] [address] ? Veda Flores CNM ?? [address] [facility] ?? [place] [address] ?? [phone] ----- ------- Signed (signature on file) Di Linares 12/03/22 1503 ? ----- ------- ? END OF REPORT ? [facility] External Provider LAB CYT OLOGY ORDERABLES Final Result [facility] [address] [place] [address] [phone] * HPV mRNA E6/E7 w/Reflex to HPV Genotypes 16, 18/45 (11/22/2022 3:13 PM EST) HPV nRNA E6/E7 Not Detected Not Detected [facility] Comment:Methodology: Transcr iption-Mediated AmplificationThis assay detects E6/E7 viral messenger RNA (mRNA) from 14high-risk HPV types (16,18,31,33,35,39,45,51,52,56,58,59,66,68).Cervical sources are required for HPV testing.If a vaginal source from a patient who has had atotal hysterectomy with removal of cervix wassubmitted, please contact the testing laboratoryfor alternative testing options.For additional information, please refer tohttp://education.SendHub/faq/LVS968j9(This link if provided for information/educational purposes only.)THIS TEST WAS PERFORMED AT:[facility] [address] ([facility])[place] [address]LXVAMCHRISTIAN MOREL MD HPV mRNA E6/E7 [facility] HPV 16 RNA [facility] HPV 18/45 RNA [facility] 11/22/2022 3:13 PM EST 11/23/2022 10:00 AM EST [facility] External Provider LAB CYT OLOGY ORDERABLES Final Result [facility] [address] [place] [phone] * Chlamydia/N. Gonorrhoeae RNA, TMA, Urogenitial (11/22/2022 1:54 PM EST) CT PCR NOT DETECTED Not Detect. [facility] Comment:A not detected test result does not exclude the possibilityof infection because test results can be affected byimproper specimen collection, concurrent antibiotic therapy,or the number of organisms in the specimen which may bebelow the sensitivity of the test. As with many diagnostictests, results from the Xpert CT/NG assay should beinterpreted in conjunction with other laboratory andclinical data available to the clinician.Xpert CT/NG performance has not been evaluated in patientsless than 14 years of age. The assay should not be used forthe evaluationof suspected sexual abuse or for other medico-legalindications. Additional testing is recommended in anycircumstance when false positive or false negative resultscould lead to adverse medical, social or psychologicalconsequences. NG PCR NOT DETECTED Not Detect. [facility] Comment:A not detected test result does not exclude the possibilityof infection because test results can be affected byimproper specimen collection, concurrent antibiotic therapy,or the number of organisms in the specimen which may bebelow the sensitivity of the test. As with many diagnostictests, results from the Xpert CT/NG assay should beinterpreted in conjunction with other laboratory andclinical data available to the clinician.Xpert CT/NG performance has not been evaluated in patientsless than 14 years of age. The assay should not be used forthe evaluationof suspected sexual abuse or for other medico-legalindications. Additional testing is recommended in anycircumstance when false positive or false negative resultscould lead to adverse medical, social or psychologicalconsequences. 11/22/2022 1:54 PM EST 11/22/2022 4:26 PM EST Narrative [facility] - 11/23/2022 10:13 AM EST Vaginal [facility] Exter nal Provider LAB MICROBIOLOGY - GENERAL ORDERABLES Final Result [facility] [address] [place] [phone] * (ABNORMAL) SureSwab?? Advanced Vaginitis, TMA (11/22/2022 1:54 PM EST) Trichomonas DNA Probe Negative Negative [facility] Gardnerella DNA Probe Positive(A) Negative [facility] Crystal DNA Probe Negative Negative [facility] 11/22/2022 1:54 PM EST 11/22/2022 4:26 PM EST [facility] Exter nal Provider LAB BODY FLUIDS AND STOOLS ORDERABLES Final Result [facility] [address] [place] [address] [phone] documented in this encounter Visit Diagnoses Not on filedocumented in this encounter Care Teams Tax Services Specialist Relationship Specialty Start Date End Date Frankie Valencia MD [address] [place] [address] PCP - General Internal Medicine 04/03/20 Val Botello DDS [address] [place] [address] Resident Dental Manager Recruiting 12/26/22 documented as of this encounter
--- OUTSIDE RECORDS SUMMARY | 2025-01-19 15:12 | XMS_ITS | Encounter Summary ---
Author Organization [employer] Address [address] [facility] 7[address] [place] [address] Care Team Providers Care Ham Curer Name Role Phone Farnkie Valencia MD Primary Care Prov ider Val Botello DDQuyen Unavailable Unavailable Reason for Visit * Reason Onset Date Comments Nurse Triage 09/07/2024 Encounter Details Date Type Department Care Team ([facility] st Contact Info) Description 09/07/2024 Telephone [facility] MED & PEDS [address] [place] [address] Frankie Valencia MD [address] [place] [address] Nurse Triage Social History Tobacco Use Types [...] the past 12 months, has t he [place] [employer], gas, oil or [employer] threatened to shut off services in your [...] Telephone Encounter - Pavithra Ingram RN - 09/07/2024 10:50 AM [place] [id number] Pt reports cough, over the weekend with nasal drainage, tactile fever and soft stools. Pt reports greenish sputum produced from cough and nasal drainage and a very dry throat. Pt is advised to use cough drops for throat, warm liquids, honey. Pt does feel better today but, will need a note for absence from work today. ASK apt in [facility] CHC today at 300pm. Pt reports drinking adequate liquids. Pt agrees with disposition and insurance is verified as active prior to booking. Protocol Used: Cough (Adult) Protocol-Based Disposition: See in Office or Video Visit Today or Tomorrow Video visit not offered Positive Triage Question: * Patient wants to be seen * All higher-acuity triage questions were negative Care Advice Discussed: * Reassurance and Education - Cough * Cough Medicines * Coughing Spells * Prevent Dehydration * Humidifier * Reasons To Call Back - Difficulty breathing - Cough lasts more than 3 weeks - Fever lasts more than 3 days - You become worse * Telephone Encounter - Zara Guthrie - 09/07/2024 9:53 AM EST Symptom: Colds,cough , headache , dry throat Outcome: Schedule an appointment to be seen within 24 hours Reason: Caller denied all higher acuity questions The caller accepted this outcome. documented in this encounter Plan of Treatment Upcoming Encounters Date Type Department Care Team (Late st Contact Info) Description 01/27/2025 10:00 AM EDT Office Visit [facility] ADULT DENTAL [address] [place] [address] Kalli Arnold [address] [place] [address] documented as of this encounter Visit Diagnoses Not on filedocumented in this encounter Additional Health Concerns Assessment Noted Time PHQ-9 Depression Total Score: 6 09/12/20 23 4:10 PM EST documented as of this encounter Care Teams Ham Curer Relationship Specialty Start Date End Date Frankie Valencia MD [address] [place] [address] PCP - General Internal Medicine 04/03/20 Val Botello DDS [address] [place] [address] Resident Dental Professor Of Family Medicine 12/26/22 documented as of this encounter
--- OUTSIDE RECORDS SUMMARY | 2025-01-19 15:12 | XMS_ITS | Encounter Summary ---
Author Organization [employer] Address [address] [place] [address] Care Team Providers Care Piping Design Specialist Name Role Phone Frankie Valencia MD Primary Care Prov ider Val Botello DDQuyen Unavailable Unavailable Encounter Details Date Type Department Care Team ([facility] Contact Info) Description 12/06/2023 Orders Only [facility] CHC MED & PEDS [address] [place], [place] [phone] Frankie Valencia MD [address] [place] [address] Social History Tobacco Use Types Packs/Day Years [...] EDT Office Visit [facility] ADULT DENTAL [address] [place] [address] Catalina Radhashaylee [address] [place] [address] documented as of this encounter Procedures Procedure Name Priority Date/Time Associated Diagnosis Comments US PELVIS TRANSVAGINAL Routine 12/11/2023 12:15 PM EST documented in this encounter Results * US Pelvis Transvaginal (12/11/2023 12:15 PM EST) Anatomical Region Laterality Modality Pelvis Ultrasound 12/11/2023 12:1 5 PM EST Narrative 12/12/2023 11:33 AM EST ? [facility] ?[address] ?[place] [address] ? Ultrasound Report ? Signed ? Patient: Jia,Miguelito ?MR#: [id number] ? : 1975 ?Acct:[id number] ? Age/Sex: 48 / F ?ADM Date: 12/11/ ? Loc: HO.US ? Attending Dr: Osman Welsh MD ? Ordering Physician: Osman Welsh MD ?? Date of Service: 12/11/23 ?? Procedure(s): US pelvic and transvaginal ?? Accession Number(s): [id number] ? cc: PollackFrankie Hernandez MD; Osman Welsh MD ? EXAMINATION: ? US PELVIS ? CLINICAL INFORMATION: ? Abnormal endometrium, follow-up ? LMP 10/08/2024 ? COMPARISON: ?? Pelvic ultrasound 10/30/2023 ? TECHNIQUE: ?? Ultrasound of the pelvis is performed using both transabdominal and ?? transvaginal transducers along with Doppler. Transvaginal imaging is ?? performed due to inadequate visualization transabdominally. ? FINDINGS: ?? Uterus: ?? The uterus is anteverted and measures 10.4 x 5.9 x 6.6 cm. ??0.5 x 0.5 ?? cm myometrial cyst is noted. ? The endometrium is heterogeneous with a few cystic spaces and is ?? thickened, measuring 1.7 cm. Upper limits of normal for endometrial ?? thickness for a premenopausal woman is 1.6 cm. ? Adnexa: ?? Both ovaries are visualized. There is normal color flow to the adnexa. ?? There is no ovarian torsion. ??There is no pelvic ascites or fluid ?? collection. ? Right ovary measures 1.9 x 1.5 x 1.8 cm. Volume 2.7 mL ? Left ovary measures 2.8 x 2.8 x 1.8 cm. Volume 7.4 mL. ? US/US pelvic and transvaginal ?? IMPRESSION: ?? 1. ??Thickened heterogeneous endometrium with a few cystic spaces. ? be considered. ?? 2. ??0.5 cm myometrial cyst. ?? 3. ??Normal ovaries. ? Dictated By: ?Phyllis Rojas MD ? Signed By: ?<Electronically signed by Phyllis Rojas MD in OV> ?12/12/23 1129 ? DD/ 1215 ? TD/TT: ? Sales Manager: ? Procedure Note Kirk, Image - 12/12/[address] [address] Ultrasound Report Signed Patient: Miguelito RoMR#: [id number] : 1975Acct:[id number] Age/Sex: 48 / FADM Date: 12/11/23 Loc: HO.US Attending Dr: Osman Welsh MD Ordering Physician: Osman Welsh MD Date of Service: 12/11/23 Procedure(s): US pelvic and transvaginal Accession Number(s): [id number] cc: Frankie Valencia MD; Osman Welsh MD EXAMINATION: US PELVIS CLINICAL INFORMATION: Abnormal endometrium, follow-up LMP 10/08/2024 COMPARISON: Pelvic ultrasound 10/30/2023 TECHNIQUE: Ultrasound of the pelvis is performed using both transabdominal and transvaginal transducers along with Doppler. Transvaginal imaging is performed due to inadequate visualization transabdominally. FINDINGS: Uterus: The uterus is anteverted and measures 10.4 x 5.9 x 6.6 cm. 0.5 x 0.5 cm myometrial cyst is noted. The endometrium is heterogeneous with a few cystic spaces and is thickened, measuring 1.7 cm. Upper limits of normal for endometrial thickness for a premenopausal woman is 1.6 cm. Adnexa: Both ovaries are visualized. There is normal color flow to the adnexa. There is no ovarian torsion. There is no pelvic ascites or fluid collection. Right ovary measures 1.9 x 1.5 x 1.8 cm. Volume 2.7 mL Left ovary measures 2.8 x 2.8 x 1.8 cm. Volume 7.4 mL. US/US pelvic and transvaginal IMPRESSION: 1. Thickened heterogeneous endometrium with a few cystic spaces. be considered. 2. 0.5 cm myometrial cyst. 3. Normal ovaries. Dictated By: Phyllis Rojas MD Signed By: <Electronically signed by Phyllis Rojas MD in OV> 12/12/23 1129 DD/ 1215 TD/TT: Sales Manager: [facility] External Provider IMG US PROCEDURES Final Result documented in this encounter Visit Diagnoses Not on filedocumented in this encounter Additional Health Concerns Assessment Noted Time PHQ-9 Depression Total Score: 6 09/12/20 23 4:10 PM EST documented as of this encounter Care Teams Piping Design Specialist Relationship Specialty Start Date End Date Frankie Valencia MD [address] [place] [address] PCP - General Internal Medicine 04/03/20 Val Botello DDS [address] [place] [address] Resident Dental Tank Cooper 12/26/22 documented as of this encounter
--- OUTSIDE RECORDS SUMMARY | 2025-01-19 15:12 | XMS_ITS | Encounter Summary ---
Author Organization [employer] Address [address] [place] [address] Care Team Providers Care Sand Conditioner Machine Name Role Phone Frankie Valencia MD Primary Care Prov ider Val Botello DDQuyen Unavailable Unavailable Encounter Details Date Type Department Care Team ([facility] st Contact Info) Description 01/18/2025 11:30 AM EDT Office Visit [facility] CHC MED & PEDS [address] [place] [address] Frankie Valencia MD [address] [place] [address] Left foot pain (Primary Dx) Social History Tobacco Use Types Packs/Day Years [...] AM EDT documented as of this encounter Last Filed Vital Signs Vital Sign Reading Time Taken Comments Blood Pressure 138/84 01/18/2025 11:25 AM EDT Pulse 72 01/18/2025 11:25 AM EDT Temperature 36.6 ??C (97.8 ??F) 01/18/2025 11:25 AM E DT Respiratory Rate 20 01/18/2025 11:25 AM EDT Oxygen Saturation - - Inhaled Oxygen Concentration - - Weight 95.9 kg (211 lb 6.4 oz) 01/18/2025 11:25 AM EDT Height 160 cm (5' 3 ) 01/18/2025 11:25 AM EDT Body Mass Index 37.45 01/18/2025 11:25 AM EDT documented in this encounter Progress Notes * Frankie Ly MD - 01/18/2025 11:30 AM EDT Subjective Patient ID: Miguelito Ro is a 49 y.o. female who presents for No chief complaint on file.. Foot Injury The incident occurred more than 1 week ago. The pain is present in the left foot. Pertinent negatives include no inability to bear weight, loss of sensation, numbness or tingling. Review of Systems Neurological: Negative for tingling and numbness. Objective Physical Exam Constitutional: Appearance: Normal appearance. Cardiovascular: Rate and Rhythm: Normal rate. Heart sounds: No murmur heard. Pulmonary: Effort: Pulmonary effort is normal. No respiratory distress. Neurological: General: No focal deficit present. Mental Status: She is alert and oriented to person, place, and time. Psychiatric: Mood and Affect: Mood normal. Behavior: Behavior normal. Assessment/Plan Problem List Items Addressed This Visit None Visit Diagnoses Left foot pain - Primary Patient tolerating ambulation, she can return to work tomorrow, letter with explanation/limitation was given to her, call back as needed documented in this encounter Plan of Treatment Upcoming Encounters Date Type Department Care Team (Late st Contact Info) Description 01/27/2025 10:00 AM EDT Office Visit [facility] ADULT DENTAL [address] [place] [address] Jose Arnoldanita [address] [place] [address] documented as of this encounter Visit Diagnoses Diagnosis Left foot pain- Primary Pain in soft tissues of limb documented in this encounter Additional Health Concerns Assessment Noted Time PHQ-9 Depression Total Score: 6 09/12/20 23 4:10 PM EST documented as of this encounter Care Teams Sand Conditioner Machine Relationship Specialty Start Date End Date Frankie Valencia MD [address] [place] [address] PCP - General Internal Medicine 04/03/20 Val Botello DDS [address] [place] [address] Resident Dental Cap Sizer 12/26/22 documented as of this encounter
--- OUTSIDE RECORDS SUMMARY | 2025-01-19 15:12 | XMS_ITS | Encounter Summary ---
Author Organization [employer] Address [address] [place] [address] Care Team Providers Care Sketch Maker Name Role Phone Frankie Valencia MD Primary Care Prov ider Val Botello DDS Unavailable Unavailable Encounter Details Date Type Department Care Team (Late st Contact Info) Description 04/15/2024 Telephone [facility] MEDICINE [address] [place], [place] [id number] Fallon Flores, RN Social History Tobacco Use Types Packs/Day Years [...] Description 01/27/2025 10:00 AM EDT Office Visit [facility] ADULT DENTAL [address] [place] [address] ArnoldRadha munozshaylee [address] [place] [address] documented as of this encounter Visit Diagnoses Not on filedocumented in this encounter Additional Health Concerns Assessment Noted Time PHQ-9 Depression Total Score: 6 09/12/20 23 4:10 PM EST documented as of this encounter Care Teams Sketch Maker Relationship Specialty Start Date End Date Frankie Valencia MD [address] [place] [address] PCP - General Internal Medicine 04/03/20 Val Botello DDS [address] [place] [address] Resident Dental Agricultural Commodities Grader 12/26/22 documented as of this encounter
--- OUTSIDE RECORDS SUMMARY | 2025-01-19 15:12 | XMS_ITS | Clinical Summary ---
Author Organization [facility] [place] [address] Care Team Providers Care Divemaster Name Role Phone Frankie Valencia Primary Care Provide r Social History Tobacco Use Types Packs/Day Years Used Date Smoking Tobacco: Never Assessed Comments Unknown Sex and Gender Information Value Date Recorded Sex Assigned at Not on file Legal Sex Female 9:54 PM EST Gender Identity Not on file Sexual Orientation Not on file Plan of Treatment Health Maintenance Due Date Last Done Comments Breast Cancer Screening 1974 DTaP,Tdap,and Td Vaccines (1 - Tdap) 1993 Hepatitis B Vaccines (1 of 3 - 19+ 3-dose series) 1993 Cervical Cancer Screening: P ap Smear 1995 Colorectal Cancer Screening: Colonoscopy 10/06/2022 Depression Screening 10/06/2022 HIV Screening 10/06/2022 Hepatitis C Screening 10/06/2022 Social Influencers of Health Screening 10/06/2022 Pneumococcal Vaccine: 50+ Ye ars (1 of 1 - PCV) 2024 Zoster Vaccines (1 of 2) 2024 COVID-19 Vaccine (1 - 2023-2 5 season) 2024 Influenza Vaccine (#1) 2024 HIB Vaccines Aged Out No longer eligi [...] on patient's age to complete this topic MMR Vaccines Aged Out No longer eligi ble based on patient's age to complete this topic Meningococcal ACWY Vaccine Aged Out N o longer eligible based on patient's age to complete this topic Meningococcal B Vacine Aged Out No lo nger eligible based on patient's age to complete this topic Pneumococcal Vaccine: Pediat rics (0 to 5 Years) and At-Risk Patients (6 to 64 Years) Aged Out No longer eligible b ased on patient's age to complete this topic RSV Immunization Patients Un laurie 20 months Aged Out No longer eligible b ased on patient's age to complete this topic Varicella Vaccines Aged Out No longer eligible based on patient's age to complete this topic Care Teams Divemaster Relationship Specialty Start Date End Date Frankie Valencia [address] [place], [place] PCP - General Internal Medicine 01/10/22
--- OUTSIDE RECORDS SUMMARY | 2025-01-19 15:12 | XMS_ITS | Encounter Summary ---
Author Organization [employer] Address [address] [place] [address] Care Team Providers Care Claim Technician Name Role Phone Frankie Valencia MD Primary Care Prov ider Val Botello DDS Unavailable Unavailable Reason for Visit * Reason Onset Date Comments ER Follow-up 09/13/2023 Care Coordination 09/13/2023 C3 f/u call- Program graduation Encounter Details Date Type Department Care Team ([facility] Contact Info) Description 09/13/2023 Telephone [facility] CHC MED & PEDS [address] [place] [address] Frankie Valencia MD [address] [place] [address] ER Follow-up; Care Coordination (C3CM f/u call- Program graduation) Social History Tobacco Use Types Packs/Day Years [...] Telephone Encounter - Marylou Long RN - 09/16/2023 11:29 AM EST DANIELA Long RN placed outbound call to patient. Patient's name, and address confirmed. Patient was [facility] for [facility]. DANIELA spoke with pt who states she is doing well. Reports symptoms have improved. States she was prescribed medication and has taken it as prescribed. Denies any concern or side effect of medication. Pt states she was referred to OBGYN and is waiting on the office to call her with appointment date and time. Pt also informed a letter has been sent to paige by [facility] with information about outpatient therapy that she has been referred to. Also pt was approved for flexible services. Pt states she has already had a discussion with the tour sales representative from the [employer] and they will be assisting her to get gift cards and a flour blender helper. Pt denies any concerns at this time. No further questions or concerns. CM reinforced direct contact information or CHW for any additional questions or concerns. Education provided on Walk-In Urgent Care located in [facility] of [facility]. Patient provided with after-hours line for [facility], , which offer night time triage service and option to transfer to process environmental technician provider if needed. CM discussed with the patient progress made towards established goals. Patient notified is being graduated from the Care Management Program. Patient was educated on how to receive care management services in the future. Patient agrees with the plan and will contact us if any future needs arise. DANIELA Long RN, sent notification to PCP Dr. Pollack to inform that patient has completed C3 Adult Complex Care program with goals partially/fully met at this time. * Telephone Encounter - Luz Maria Steve - 09/13/2023 3:42 PM EST Tc from pt calling to report an ED visit. Pt was seen at [facility] on 09/13 for pelvic pain. States they did scans and found out a cyst on her left ovary had ruptured. Pt is asymptomatic. Was advised weill forward to team nurses for f/u. Please contact pt at [phone] (Sign language) documented in this encounter Plan of Treatment Upcoming Encounters Date Type Department Care Team ([facility] st Contact Info) Description 01/27/2025 10:00 AM EDT Office Visit [facility] CHC ADULT DENTAL [address] [place] [address] Radha Arnoldshyalee [address] [place] [address] documented as of this encounter Visit Diagnoses Not on filedocumented in this encounter Additional Health Concerns Assessment Noted Time PHQ-9 Depression Total Score: 6 09/12/20 23 4:10 PM EST documented as of this encounter Care Teams Claim Technician Relationship Specialty Start Date End Date Frankie Valencia MD [address] [place] [address] PCP - General Internal Medicine 04/03/20 Val Botello DDS [address] [place] [address] [place] [address] Resident Dental Gearcase Assembler 12/26/22 documented as of this encounter
--- OUTSIDE RECORDS SUMMARY | 2025-01-19 15:12 | XMS_ITS | Encounter Summary ---
Author Organization [employer] Address [address] [place] [address] Care Team Providers Care Iron Launder Operator Name Role Phone Frankie Valencia MD Primary Care Prov ider Val Botello DDQuyen Unavailable Unavailable Reason for Visit * Reason Onset Date Comments Nurse Triage 01/28/2024 Encounter Details Date Type Department Care Team (Late st Contact Info) Description 01/28/2024 Telephone [facility] MEDICINE [address] [place] [address] Frankie Valencia MD [address] [place] [address] Nurse Triage Social History Tobacco Use Types [...] encounter Miscellaneous Notes * Telephone Encounter - Herbert Harrison - 01/28/2024 9:00 AM EDT Symptoms: Cough, Headache, Chest Congestion, Chills Outcome: Schedule an urgent appointment (within 4 hours) or talk to a nurse or provider soon Reason: Getting worse The caller accepted this outcome Patient tested negative for Covid on 01/27 Patient uses sign language documented in this encounter Plan of Treatment Upcoming Encounters Date Type Department Care Team (Late st Contact Info) Description 01/27/2025 10:00 AM EDT Office Visit [facility] ADULT DENTAL [address] [place] [address] Kalli Arnold [address] [place] [address] documented as of this encounter Visit Diagnoses Not on filedocumented in this encounter Additional Health Concerns Assessment Noted Time PHQ-9 Depression Total Score: 6 09/12/20 23 4:10 PM EST documented as of this encounter Care Teams Iron Launder Operator Relationship Specialty Start Date End Date Pollack Ly, Frankie, MD [address] [place] [address] PCP - General Internal Medicine 04/03/20 Val Botello DDS [address] [place] [address] Resident Dental Cheese Weigher 12/26/22 documented as of this encounter
--- OUTSIDE RECORDS SUMMARY | 2025-01-19 15:13 | XMS_ITS | Encounter Summary ---
Author Organization [employer] Address [address] [place] [address] Care Team Providers Care Green Prize Packer Name Role Phone Frankie Valencia MD Primary Care Prov ider Val Botello DDQuyen Unavailable Unavailable Encounter Details Date Type Department Care Team ([facility] Contact Info) Description 10/11/2023 Orders Only [facility] CHC MED & PEDS [address] [place], [place] [phone] Sonal Rodríguez MD [address] [place] [address] Cough in adult Social History Tobacco Use Types Packs/Day Years [...] the past 12 months, has t he [employer], gas, oil or water [employer] threatened to shut off services in your [...] 10:00 AM EDT Office Visit [facility] ADULT DENTAL [address] [place] [address] Kalli Arnold [address] [place] [address] documented as of this encounter Procedures Procedure Name Priority Date/Time Associated Diagnosis Comments US PELVIS TRANSVAGINAL Routine 10/30/2023 11:40 AM EST documented in this encounter Results * US Pelvis Transvaginal (10/30/2023 11:40 AM EST) Anatomical Region Laterality Modality Pelvis Ultrasound 10/30/2023 11:4 0 AM EST Narrative 11/05/2023 11:19 AM EST ? [facility] ?[address] ?[place] [address] ? Ultrasound Report ? Signed ? Patient: Jia,Miguelito ?MR#: [id number] ? : 1975 ?Acct:[id number] ? Age/Sex: 48 / F ?ADM Date: 12/27/23 ? Loc: HO.US ? Attending Dr: Osman Welsh MD ? Ordering Physician: Osman Welsh MD ?? Date of Service: 10/30/23 ?? Procedure(s): US pelvic and transvaginal ?? Accession Number(s): [id number] ? cc: Frankie Valencia MD; Osman Welsh MD ? EXAMINATION: ? US PELVIS ? CLINICAL INFORMATION: ? Ovarian cyst. Unknown last menstrual period. ? COMPARISON: ?? Pelvic ultrasound of 02/20/2023 and prior. ? TECHNIQUE: ?? Ultrasound of the pelvis is performed using both transabdominal and ?? transvaginal transducers along with Doppler. Transvaginal imaging is ?? performed due to inadequate visualization transabdominally. ? FINDINGS: ?? The uterus measures 9.7 x 6.0 x 7.0 cm. ? A 0.5 x 0.5 x 0.6 cm hypoechoic lesion or cyst within the uterine body ?? on the right. Previous exam demonstrated a 0.8 cm lesion. ? Endometrium is echogenic and heterogeneous with cystic spaces and ?? thickness of 18 mm. A 0.3 cm cyst within the endometrium. ?? Possible 0.4 x 0.7 x 0.7 cm endometrial polyp with vascular stalk. ? Right ovary not visualized. ? Left ovary measures 3.4 x 1.8 x 2.7 cm, volume 8.6 mL. A 1.9 x 1.2 x ?? 1.5 cm left ovarian cyst was not identified on the prior exam. ? US/US pelvic and transvaginal ?? IMPRESSION: ?? 1. Complex, heterogeneous endometrium with cystic spaces and ?? endometrial thickness of 18 mm. Possible 0.4 x 0.7 x 0.7 cm endometrial ?? polyp with vascular stalk. Previous endometrial thickness of 19 mm with ?? possible 1.1 cm polyp. Gynecologic consultation and correlation with ?? clinical exam recommended to determine further management including ?? possible biopsy. ? 2. Right ovary not visualized. A 1.9 cm left ovarian cyst was not ?? identified on the prior exam. ? 3. A 0.6 cm hypoechoic mass or cyst within the uterine body. Previous ?? exam demonstrated a 0.8 cm possible mass or cyst. ? Dictated By: ?Jennie Forte MD ? Signed By: ?<Electronically signed by Jennie Forte MD in OV> ? 11/05/235 ? DD/ 1140 ? TD/TT: ? Pharmacy Retail Support Specialist: ? Procedure Note Donotuseinterpreter, Image - 11/05/2023 [place] [id number] Ultrasound Report Signed Patient: Miguelito RoMR#: [id number] : 1975Acct:[id number] Age/Sex: 48 / FADM Date: 10/30/23 Loc: HO.US Attending Dr: Osman Welsh MD Ordering Physician: Osman Welsh MD Date of Service: 10/30/23 Procedure(s): US pelvic and transvaginal Accession Number(s): [id number] cc: Frankie Valencia MD; Osman Welsh MD EXAMINATION: US PELVIS CLINICAL INFORMATION: Ovarian cyst. Unknown last menstrual period. COMPARISON: Pelvic ultrasound of 02/20/2023 and prior. TECHNIQUE: Ultrasound of the pelvis is performed using both transabdominal and transvaginal transducers along with Doppler. Transvaginal imaging is performed due to inadequate visualization transabdominally. FINDINGS: The uterus measures 9.7 x 6.0 x 7.0 cm. A 0.5 x 0.5 x 0.6 cm hypoechoic lesion or cyst within the uterine body on the right. Previous exam demonstrated a 0.8 cm lesion. Endometrium is echogenic and heterogeneous with cystic spaces and thickness of 18 mm. A 0.3 cm cyst within the endometrium. Possible 0.4 x 0.7 x 0.7 cm endometrial polyp with vascular stalk. Right ovary not visualized. Left ovary measures 3.4 x 1.8 x 2.7 cm, volume 8.6 mL. A 1.9 x 1.2 x 1.5 cm left ovarian cyst was not identified on the prior exam. US/US pelvic and transvaginal IMPRESSION: 1. Complex, heterogeneous endometrium with cystic spaces and endometrial thickness of 18 mm. Possible 0.4 x 0.7 x 0.7 cm endometrial polyp with vascular stalk. Previous endometrial thickness of 19 mm with possible 1.1 cm polyp. Gynecologic consultation and correlation with clinical exam recommended to determine further management including possible biopsy. 2. Right ovary not visualized. A 1.9 cm left ovarian cyst was not identified on the prior exam. 3. A 0.6 cm hypoechoic mass or cyst within the uterine body. Previous exam demonstrated a 0.8 cm possible mass or cyst. Dictated By: Jennie Forte MD Signed By: <Electronically signed by Jennie Forte MD in OV> 11/05/23 1115 DD/ 1140 TD/TT: Pharmacy Retail Support Specialist: us [facility] External Provider IMG US PROCEDURES Final Result documented in this encounter Visit Diagnoses Diagnosis Cough in adult documented in this encounter Additional Health Concerns Assessment Noted Time PHQ-9 Depression Total Score: 6 09/12/20 23 4:10 PM EST documented as of this encounter Care Teams Green Prize Packer Relationship Specialty Start Date End Date PollackFrankie Hernandez MD [address] [place] [address] PCP - General Internal Medicine 04/03/20 Val Botello DDS [address] [facility] [place] [address] Resident Dental Field Services Director 12/26/22 documented as of this encounter
== END 2025-01-19 14:04 | disposition home or self-care (01) ==
PROVIDERS: PCP Internal Medicine; Visit Provider Nurse Practitioner Family
DX: R00.2 Palpitations (principal); I49.1 Atrial premature depolarization; G47.33 Obstructive sleep apnea (adult) (pediatric)
CPT/HCPCS: 93010; 99213

== ENCOUNTER → 2025-01-19 12:59 | Outpatient (BNVA) | payer MEDICAID, SELFPAY | PROVIDERS: PCP Internal Medicine; Visit Provider Nurse Practitioner Family | DX: I49.1 Atrial premature depolarization (principal); R00.2 Palpitations; G47.33 Obstructive sleep apnea (adult) (pediatric); Z99.89 Dependence on other enabling machines and devices | CPT/HCPCS: 93005; 99212 ==